=== PATIENT | female | born 1980 | race Two or more races ===

== ENCOUNTER 2017-01-03 16:44 | Emergency (ER) | payer OTHER ==
[~2017-01-03] VITALS: Ht 160 cm; Wt 90.7 kg
[~2017-01-03 16:44] MED LIST: ATOR10TA PO; BUPR1PAT TD; CETI10CA PO; EZET10TA3 PO; FENO145T PO; GABA-586 PO; HYDR-2762 PO; METF10002 PO; MILN50TA PO; PROAIR HFA8.5 GM IH; VARE1TAB5 PO
[2017-01-03 17:02] VITALS: BP 137/79
--- NOTE | 2017-01-03 17:28 | PHYS DOC ---
Past Medical History Past Medical History: Fibromyalgia, Hypertension, Unknown Additional Past Medical Histor: Herniated lumbar disks w/pinched nerves,High triglycerides,Polycystic ovary Past Surgical History: Other Additional Past Surgical Histo: L)ovarian cyst. Alcohol Use: None Drug Use: None Adult General Chief Complaint Chief Complaint: LOWER BACK PAIN OR INJURY HPI HPI Patient is a 36 year old female with history of hypertension and chronic back pain with sciatica who presents today with exacerbation of chronic back pain that began this morning. She rates the pain as moderate worse on movement. She states she has an appointment with the spine clinic next month. Patient states she has not had insurance for a while hence she has not been able to follow-up with anyone for her chronic pain. She states she just got insurance recently and is planning to follow-up with the spine center. Patient denies any injury. Denies any loss of bowel bladder function. Review of Systems Review of Systems Constitutional: Denies fever or chills [] Eyes: Denies change in visual acuity, redness, or eye pain [] Musculoskeletal: Chronic low back pain Integument: Denies rash or skin lesions [] Neurologic: Denies headache, focal weakness or sensory changes [] Endocrine: Denies polyuria or polydipsia [] Current Medications Current Medications Current Medications Medications (Trade) Dose Ordered Sig/Marine Start Time Stop Time Status Last Admin Dose Admin Acetaminophen/ Hydrocodone Bitart (Lortab 7.5/325) 2 tab 1X ONCE 01/03/17 17:30 3 17:31 UNV Diazepam (Valium) 5 mg 1X ONCE 01/03/17 17:30 3 17:31 UNV Prednisone (Prednisone) 60 mg 1X ONCE 01/03/17 17:30 01/03/17 17:31 UNV Allergies Allergies Allergies Coded Allergies Type Severity Reaction Last Updated Verified adhesive Allergy Intermediate 05/19/14 Yes pregabalin Allergy Intermediate MOUTH SORES 08/15/14 No Physical Exam Physical Exam Constitutional: Well developed, well nourished, no acute distress, non-toxic appearance. [] HENT: Normocephalic, atraumatic, bilateral external ears normal, oropharynx moist, no oral exudates, nose normal. [] Skin: Warm, dry, no erythema, no rash. [] Back: Diffuse tenderness paraspinal muscles of bilateral low lumbar region worse on the right SI joint, no midline tenderness, no CVA tenderness. Positive right leg straight raises. Extremities: No tenderness, no cyanosis, no clubbing, ROM intact, no edema. [] Neurologic: Alert and oriented X 3, normal motor function, normal sensory function, no focal deficits noted. [] Psychologic: Affect normal, judgement normal, mood normal. [] Current Patient Data Vital Signs Vital Signs Date Time Temp Pulse Resp B/P Pulse Ox O2 Delivery O2 Flow Rate FiO2 01/03/17 17:02 98.0 82 16 98 Room Air 98.0 EKG EKG [] Radiology/Procedures Radiology/Procedures [] Course & Med Decision Making Course & Med Decision Making Pertinent Labs and Imaging studies reviewed. (See chart for details) Patient is in the ED with exacerbation of chronic back pain. She has not had medical insurance for a while hence has not been following up with anyone. She is planning to follow-up with the spine center. She just got a new medical insurance through her new job at [employer]. She was given pain medicine and discharge. She was provided return precautions and discharged in stable condition. Dragon Disclaimer Dragon Disclaimer This electronic medical record was generated, in whole or in part, using a voice recognition dictation system. Departure Departure Impression: Primary Impression: Exacerbation of chronic back pain Additional Impression: Chronic sciatica of right side Disposition: 01 HOME, SELF-CARE Condition: STABLE Referrals: NO PCP (PCP) Follow-up with your doctor in 1-2 weeks Patient Instructions: Back Pain, Adult, [id number] Additional Instructions: You were seen for exacerbation of chronic back pain with sciatica. Follow-up with your doctor as soon as he can. Come back to the emergency room at any point symptoms worsen especially if you develop loss of bowel or bladder function. Scripts Naproxen 500 Mg Tablet.dr1 Tab PO BID #60 TAB Ref 2 Prov:RICHARD DELAROSA APRN 01/03/17 Cyclobenzaprine Hcl 10 Mg Tablet1 Tab PO TID #30 TAB Prov:RICHARD DELAROSA APRN 01/03/17 Hydrocodone/Apap 5-325 ([place] 5-325 Tablet)1 Each Tablet1-2 Tab PO Q4-6HRS #20 TAB Prov:RICHARD DELAROSA APRN 01/03/17 Problem Qualifiers RICHARD DELAROSA APRN Jan 03, 2017 17:28
[2017-01-03] MEDS ORDERED: DIAZEPAM 5 MG TABLET PO ONE (17:30)
[2017-01-03] MEDS ORDERED: PREDNISONE 20 MG TABLET PO ONE (17:30)
[2017-01-03] MEDS ORDERED: HYDROCODONE/APAP 7.5/325MG TABLET. PO ONE (17:30)
[2017-01-03] MEDS ORDERED: CYCL10TA2 PO (17:38)
[2017-01-03] MEDS ORDERED: HYDR-971 PO (17:38)
[2017-01-03] MEDS ORDERED: NAPR500T8 PO (17:38)
== END 2017-01-03 17:49 | disposition home or self-care (01) ==
LOC: ER 16:44
DX: G89.29 Other chronic pain (principal); M54.41 Lumbago with sciatica, right side; I10 Essential (primary) hypertension; M79.7 Fibromyalgia; E28.2 Polycystic ovarian syndrome; E78.1 Pure hyperglyceridemia; Z91.048 Other nonmedicinal substance allergy status; Z88.8 Allergy status to other drugs, medicaments and biological substances
CPT/HCPCS: 99284; J7512

== ENCOUNTER 2017-02-03 20:24 | Emergency (ER) | payer OTHER ==
[~2017-02-03] VITALS: Ht 160 cm; Wt 98.9 kg
[~2017-02-03 20:24] MED LIST changes: +CYCL10TA2 PO; +HYDR-971 PO; +NAPR500T8 PO
[2017-02-03 20:32] VITALS: BP 142/88
[2017-02-03] MEDS ORDERED: HYDR-971 PO (21:29)
[2017-02-03] MEDS ORDERED: NAPR500T3 PO (21:29)
--- NOTE | 2017-02-03 21:29 | PHYS DOC ---
Past Medical History Past Medical History: Fibromyalgia, Unknown Additional Past Medical Histor: Herniated lumbar disks w/pinched nerves,High triglycerides,Polycystic ovary Past Surgical History: Other Additional Past Surgical Histo: L)ovarian cyst. Alcohol Use: None Drug Use: None Adult General Chief Complaint Chief Complaint: BACK PAIN - NO INJURY [facility] HPI Patient is a 36 year old female presents emergency department stating that she has having right lower back pain with radiation down into her leg. Patient states she has chronic back issues in the past where she is on Robaxin as well as naproxen and has still continued to have pain and discomfort. Patient also states that she does take gabapentin for numbness and tingling into the right lower extremity. She states back in 2010 she did have epidural injections which seemed to have helped. She states at that time her insurance and ran out and she is unable to get the injections. She states that she does have an appointment on the of this month in which she is able to start getting injections again. Patient denies any trauma or injuries to the back causing her to come in today. Patient states she normally gets hydrocodone for the pain and discomfort as the other medications have not helped. She does state that she is currently out of the naproxen at this time. She denies any loss of bowel or bladder. Review of Systems Review of Systems Constitutional: Denies fever or chills [] Eyes: Denies change in visual acuity, redness, or eye pain [] HENT: Denies nasal congestion or sore throat [] Respiratory: Denies cough or shortness of breath [] Cardiovascular: No additional information not addressed in HPI [] GI: Denies abdominal pain, nausea, vomiting, bloody stools or diarrhea [] : Denies dysuria or hematuria [] Musculoskeletal: right lower back pain with radiation of pain into the right leg denies joint pain [] Integument: Denies rash or skin lesions [] Neurologic: Denies headache, focal weakness or sensory changes [] Allergies Allergies Allergies Coded Allergies Type Severity Reaction Last Updated Verified adhesive Allergy Intermediate 05/19/14 Yes pregabalin Allergy Intermediate MOUTH SORES 08/15/14 No Physical Exam Physical Exam Constitutional: Well developed, well nourished, no acute distress, non-toxic appearance. [] HENT: Normocephalic, atraumatic, bilateral external ears normal, oropharynx moist, no oral exudates, nose normal. [] Eyes: PERRLA, EOMI, conjunctiva normal, no discharge. [] Neck: Normal range of motion, no tenderness, supple, no stridor. [] Cardiovascular:Heart rate regular rhythm, no murmur [] Lungs & Thorax: Bilateral breath sounds clear to auscultation [] Abdomen: Bowel sounds normal, soft, no tenderness, no masses, no pulsatile masses. [] Skin: Warm, dry, no erythema, no rash. [] Back: No breast or lumbar spine tenderness, crepitus no deformities and no step- offs noted. No CVA tenderness. Patient with tenderness noted in the right lower back area. Extremities: No tenderness, no cyanosis, no clubbing, ROM intact, no edema. Peripheral pulses 2+ cap refill brisk less than 2 seconds. Good sensation noted to the lower extremity. Patient is ambulatory with a good steady gait. Neurologic: Alert and oriented X 3, normal motor function, normal sensory function, no focal deficits noted. [] Psychologic: Affect normal, judgement normal, mood normal. [] Current Patient Data Vital Signs Vital Signs Date Time Temp Pulse Resp B/P Pulse Ox O2 Delivery O2 Flow Rate FiO2 02/03/17 20:32 97.5 91 18 97 Room Air 97.5 EKG EKG [] Radiology/Procedures Radiology/Procedures [] Course & Med Decision Making Course & Med Decision Making Pertinent Labs and Imaging studies reviewed. (See chart for details) Spoke with patient in regards to the emergency department is not designed take care of chronic pain issues. Spoke with her in regards to hydrocodone causing drowsiness do not take any be alert and oriented. We'll provide patient with 6 hydrocodone's to help her with chronic pain at this time. Recommended continuing home medications patient be provided with naproxen as well. Patient will be discharged home in stable condition signs symptoms to return back to emergency department been provided. Also recommended ice packs on several times a day. [] Dragon Disclaimer Dragon Disclaimer This electronic medical record was generated, in whole or in part, using a voice recognition dictation system. Departure Departure Impression: Primary Impression: Chronic back pain Disposition: 01 HOME, SELF-CARE Condition: STABLE Referrals: LYLA LUCAS (PCP) Patient Instructions: Chronic Back Pain Additional Instructions: You've been evaluated for your chronic back pain. It is advisable that you follow-up with her primary care physician or pain management for further resources and management of your pain medication. Hydrocodone for severe pain and discomfort. This medication will cause drowsiness do not take any be alert and oriented. Ice packs on 20 minutes off 20 minutes several times a day. Continue your home medications. Follow-up with your primary care physician or your pain management physician in the next 3-5 days. Return back to emergency prior signs symptoms of become worse. Scripts Hydrocodone/Apap 5-325 ([place] 5-325 Tablet)1 Each Tablet1 Tab PO PRN Q6HRS PRN PAIN #10 TAB Prov:SHAUNNA CALI SUPERIOR COURT JUDGE 02/03/17 Naproxen 500 Mg Tablet1 Tab PO BID #60 TAB Prov:SHAUNNA CALI SUPERIOR COURT JUDGE 02/03/[address] JUDGE Feb 03, 2017 21:29
== END 2017-02-03 21:47 | disposition home or self-care (01) ==
LOC: ER 20:24
DX: G89.29 Other chronic pain (principal); M54.5 Low back pain; M79.7 Fibromyalgia; E28.2 Polycystic ovarian syndrome; Z88.8 Allergy status to other drugs, medicaments and biological substances; Z91.048 Other nonmedicinal substance allergy status
CPT/HCPCS: 99283

== ENCOUNTER 2017-05-22 20:05 | Emergency (ER) | payer OTHER ==
[~2017-05-22] VITALS: Ht 160 cm; Wt 99.8 kg
[~2017-05-22 20:05] MED LIST changes: -BUPR1PAT TD; +BUPR1PAT7 TD; +EZET10TA18 PO; -EZET10TA3 PO; +METF-620 PO; -METF10002 PO; +NAPR500T3 PO
[2017-05-22 21:02] LABS: BASO % 0 % (0-3); EOS % 3 % (0-3); HEMATOCRIT 39.4 % (36.0-47.0); HEMOGLOBIN 13.5 g/dL (12.0-15.5); LYMPH # 2.4 x10^3/uL (1.0-4.8); LYMPH % 28 % (24-48); MEAN CORPUSCULAR HEMOGLOBIN 31 pg (25-35); MEAN CORPUSCULAR HGB CONC 34 g/dL (31-37); MEAN CORPUSCULAR VOLUME 90 fL (79-100); MONO % 10 % (0-9); NEUT % 58 % (31-73); PLATELET COUNT 141 x10^3/uL (140-400); RED CELL DISTRIBUTION WIDTH 13.6 % (11.5-14.5); WHITE BLOOD COUNT 8.5 x10^3/uL (4.0-11.0)
[2017-05-22 21:19] LABS: CREATININE 0.7 mg/dL (0.6-1.0); GFR 95.8; POTASSIUM 3.3 mmol/L (3.5-5.1)
[2017-05-22 21:25] LABS: ALBUMIN 3.8 g/dL (3.4-5.0); ALBUMIN/GLOBULIN RATIO 0.9 (1.0-1.7); TOTAL BILIRUBIN 0.3 mg/dL (0.2-1.0); TOTAL PROTEIN 7.9 g/dL (6.4-8.2)
[2017-05-22 21:40] LABS: PLT ESTIMATE ADEQUATE (ADEQUATE)
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
[2017-05-22 22:30] VITALS: BP 131/81
--- NOTE | 2017-05-23 06:23 | EKG ---
[facility] [address] [place] [address] Test Date: 2017-05-22 Test Time: 20:32:41 Pat Name: RUSS WESTFALL Department: Room: Gender: F [employer] Tender: : 1980 Requested By: MINI DE SANTIAGO Order Number: [id number] Reading MD: Epifanio Heredia Measurements Intervals [place] Rate: 72 P: 31 SC: 142 QRS: 46 QRSD: 92 T: 22 QT: 392 QTc: 431 Interpretive Statements SINUS RHYTHM Electronically Signed On 05-25-2017 15:01:18 CDT by Epifanio Heredia
--- NOTE | 2017-05-23 07:21 | RAD ---
AP chest radiograph 05/22/2017 Indication: Chest pain Comparison: 11/09/2014 Findings: Cardiac and mediastinal silhouettes are within normal limits. No pleural effusion, pneumothorax or focal consolidation. Impression: No acute cardiopulmonary abnormality.
== END 2017-05-22 22:45 | disposition home or self-care (01) ==
LOC: ER 20:05
DX: R07.89 Other chest pain (principal); R06.00 Dyspnea, unspecified; R53.83 Other fatigue; J02.9 Acute pharyngitis, unspecified; E78.00 Pure hypercholesterolemia, unspecified; Z88.8 Allergy status to other drugs, medicaments and biological substances
CPT/HCPCS: 36415; 71010; 80053; 81025; 83690; 84484; 85007; 85027; 85379; 93005; 99285-25

== ENCOUNTER 2017-09-23 08:14 | Emergency (ER) | payer OTHER ==
[~2017-09-23] VITALS: Ht 160 cm; Wt 99.3 kg
[~2017-09-23 08:14] MED LIST changes: -NAPR500T3 PO; +NAPR500T4 PO
[2017-09-23] MEDS ORDERED: IV NORMAL SALINE 1000ML BAG 1,000 ML IV SCH (08:21)
[2017-09-23] MEDS ORDERED: ONDANSETRON PF 4 MG/2 ML VIAL. IV ONE (08:30)
[2017-09-23] MEDS ORDERED: 0.9 % SODIUM CHLORIDE 10 ML DISP.SYRIN. IV PRN (08:30)
[2017-09-23] MEDS ORDERED: PANTOPRAZOLE IV PUSH 40 MG VIAL. IVP ONE (08:30)
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
[2017-09-23] MEDS ORDERED: fentaNYL PF VIAL 100 MCG/2 ML VIAL IV ONE (08:45)
[2017-09-23 08:47] LABS: BASO % 0 % (0-3); EOS % 2 % (0-3); HEMATOCRIT 39.2 % (36.0-47.0); HEMOGLOBIN 12.8 g/dL (12.0-15.5); LYMPH # 1.5 x10^3/uL (1.0-4.8); LYMPH % 11 % (24-48); MEAN CORPUSCULAR HEMOGLOBIN 28 pg (25-35); MEAN CORPUSCULAR HGB CONC 33 g/dL (31-37); MEAN CORPUSCULAR VOLUME 87 fL (79-100); MONO % 9 % (0-9); NEUT % 78 % (31-73); PLATELET COUNT 152 x10^3/uL (140-400); RED BLOOD COUNT 4.51 x10^6/uL (3.50-5.40); WHITE BLOOD COUNT 13.9 x10^3/uL (4.0-11.0)
[2017-09-23 08:49] LABS: CALCIUM 9.4 mg/dL (8.5-10.1); CREATININE 0.7 mg/dL (0.6-1.0); GFR 95.2; POTASSIUM 3.4 mmol/L (3.5-5.1)
[2017-09-23 08:55] LABS: ALBUMIN 3.9 g/dL (3.4-5.0); ALBUMIN/GLOBULIN RATIO 1.1 (1.0-1.7); TOTAL BILIRUBIN 0.6 mg/dL (0.2-1.0); TOTAL PROTEIN 7.5 g/dL (6.4-8.2)
[2017-09-23 09:00] LABS: BILIRUBIN,URINE NEGATIVE (NEG); GLUCOSE,URINE NEGATIVE (NEG); NITRITE,URINE NEGATIVE (NEG); PH,URINE 6.5; PROTEIN,URINE NEGATIVE (NEG-TRACE)
[2017-09-23 09:11] LABS: BACTERIA,URINE FEW /HPF (0-FEW); RBC,URINE OCC /HPF (0-2); SQUAMOUS EPITHELIAL CELL,UR MANY /LPF
--- NOTE | 2017-09-23 09:44 | RAD ---
Right upper quadrant abdominal ultrasound, 09/23/2017: History: Right upper quadrant pain The gallbladder is within normal limits in size. There is no sonographic evidence of cholelithiasis. The gallbladder priest are not thickened. The common hepatic duct measures 6 mm which is at the upper limits of normal. No intrahepatic biliary ductal dilatation is seen. The hepatic echogenicity is generally increased. The liver measures 24 cm in craniocaudad extent at the level the right lobe. There is a 10.3 cm mass involving the posterior aspect of the right lobe of the liver adjacent to the upper pole of the right kidney. It appears to arise from the liver rather than the right kidney. This mass is more echogenic than the adjacent liver is a mildly heterogeneous pattern. It abuts the inferior vena cava. No other hepatic lesion is seen. The right kidney shows no intrinsic abnormality. The visualized portions of the pancreas are unremarkable. IMPRESSION: 1. No gallbladder abnormality is detected. 2. Hepatomegaly with probable hepatic steatosis. 3. 10 cm hyperechoic mass in the right lobe of the liver. Diagnostic considerations include a large hepatic hemangioma, focal nodular hyperplasia or hepatic adenoma. A primary or secondary hepatic malignancy is less likely. Hepatic protocol MR or multiphasic CT scanning is suggested for further evaluation.
[2017-09-23 10:12] LABS: PLT ESTIMATE ADEQUATE (ADEQUATE)
[2017-09-23 10:20] VITALS: BP 129/72
[2017-09-23] MEDS ORDERED: HYDR-971 PO (10:30)
[2017-09-23] MEDS ORDERED: METO10TA81 PO (10:30)
[2017-09-23] MEDS ORDERED: DICY10CA53 PO (10:30)
[2017-09-23] MEDS ORDERED: SULF1TAB24 PO (10:33)
== END 2017-09-23 11:32 | disposition home or self-care (01) ==
LOC: ER 08:14
DX: E86.0 Dehydration (principal); N30.90 Cystitis, unspecified without hematuria; E87.6 Hypokalemia; R16.0 Hepatomegaly, not elsewhere classified; M79.7 Fibromyalgia; E78.00 Pure hypercholesterolemia, unspecified; Z88.8 Allergy status to other drugs, medicaments and biological substances; Z91.048 Other nonmedicinal substance allergy status
CPT/HCPCS: 36415; 76705; 80053; 81001; 81025; 83690; 84702; 85025; 87086; 96361; 96374; 96375; 99285; C9113; J2405; J3010; J7030

== ENCOUNTER 2017-10-06 08:53 | Emergency (ER) | payer OTHER ==
[~2017-10-06] VITALS: Ht 160 cm; Wt 97.5 kg
[~2017-10-06 08:53] MED LIST changes: +DICY10CA53 PO; +METO10TA81 PO; +SULF1TAB24 PO
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
[2017-10-06] MEDS ORDERED: IV NORMAL SALINE 1000ML BAG 1,000 ML IV ONE (09:15)
[2017-10-06] MEDS ORDERED: ONDANSETRON PF 4 MG/2 ML VIAL. IV ONE (09:15)
[2017-10-06] MEDS ORDERED: fentaNYL PF VIAL 100 MCG/2 ML VIAL IV ONE (09:15)
[2017-10-06 09:39] LABS: BASO # 0.1 x10^3/uL (0.0-0.2); BASO % 1 % (0-3); EOS % 5 % (0-3); HEMATOCRIT 37.6 % (36.0-47.0); LYMPH # 2.7 x10^3/uL (1.0-4.8); LYMPH % 28 % (24-48); MEAN CORPUSCULAR HEMOGLOBIN 30 pg (25-35); MEAN CORPUSCULAR HGB CONC 35 g/dL (31-37); MEAN CORPUSCULAR VOLUME 86 fL (79-100); MONO % 6 % (0-9); NEUT % 61 % (31-73); PLATELET COUNT 151 x10^3/uL (140-400); RED CELL DISTRIBUTION WIDTH 14.4 % (11.5-14.5); WHITE BLOOD COUNT 9.6 x10^3/uL (4.0-11.0)
[2017-10-06 09:50] LABS: BILIRUBIN,URINE NEGATIVE (NEG); GLUCOSE,URINE NEGATIVE (NEG); NITRITE,URINE NEGATIVE (NEG); PH,URINE 6.5; PROTEIN,URINE NEGATIVE (NEG-TRACE); UROBILINOGEN,URINE 0.2 mg/dL (0.2 mg/dL)
[2017-10-06 10:00] LABS: CALCIUM 8.4 mg/dL (8.5-10.1); CREATININE 0.5 mg/dL (0.6-1.0); GFR 140.4; POTASSIUM 3.9 mmol/L (3.5-5.1)
[2017-10-06 10:06] LABS: ALBUMIN 3.5 g/dL (3.4-5.0); TOTAL BILIRUBIN 0.2 mg/dL (0.2-1.0)
[2017-10-06 10:09] LABS: BACTERIA,URINE FEW /HPF (0-FEW); RBC,URINE RARE /HPF (0-2); SQUAMOUS EPITHELIAL CELL,UR FEW /LPF; WBC,URINE OCC /HPF (0-4)
[2017-10-06] MEDS ORDERED: IOHEXOL 300 MG/ML 100ML VIAL. IV ONE (10:15)
[2017-10-06] MEDS ORDERED: CONTRAST GIVEN MC PRN (10:15)
--- NOTE | 2017-10-06 11:19 | RAD ---
Indication: Abnormal ultrasound with liver mass. Further evaluation. Technique: Precontrast, arterial, and delayed imaging was performed. Coronal and sagittal reformats are provided. 75 mL of intravenous Omnipaque 300 was administered without complication. Comparison is an ultrasound from September 23, 2017. One or more of the following individualized dose reduction techniques were utilized for this examination: 1. Automated exposure control 2. Adjustment of the mA and/or kV according to patient size 3. Use of iterative reconstruction technique Findings: There is atelectasis in the lung bases. There is no pleural effusion. The heart is not enlarged. There is fatty infiltration of the liver without discrete mass. Gallbladder is unremarkable. Spleen is not enlarged. The pancreas and the left adrenal are unremarkable. There is a 7 x 6 x 7 cm predominately fatty mass in the expected location of the right adrenal. There is some associated soft tissue within this lesion. This indents on the contour of the liver and corresponds to the lesion on ultrasound. It is favored to arise from the adrenal rather than from the liver or the adjacent kidney. There is no claw sign to suggest this arises from the kidney. Imaging characteristics are compatible with myelolipoma. There is of increased density within the lesion could represent normal soft tissue components within a myelolipoma, could also represent areas of hemorrhage. Given large size, surgical consult can be considered. Myelolipomas do not have malignant potential although larger lesions have an associated risk of hemorrhage including retroperitoneal hemorrhage. Aorta is normal caliber with minimal atheromatous disease. Precontrast imaging demonstrates no urolithiasis. Kidneys are symmetrically perfused. Right renal cyst measures 15 mm. Small bowel and colon are grossly unremarkable on this exam without oral contrast. Cystic lesion in the right adnexa is presumably ovarian in origin, 7 x 6 cm. There is no free pelvic fluid. There is no pelvic adenopathy. Bony structures are intact. Impression: 1. Area of concern on ultrasound appears to arise from the right adrenal gland rather than from the liver. It is a fat containing lesion with areas of increased density within. Imaging characteristics are compatible with myelolipoma. The areas of increased density could represent soft tissue components of a myelolipoma, could also represent areas of hemorrhage. Surgical consult can be considered. At the minimum, surveillance imaging is required. 2. Mild fatty infiltration of the liver. 3. Right renal cyst. 4. Minimal atheromatous disease in the thoracic aorta. 5. Cystic lesion in the right adnexa. Short-term follow-up nonemergent pelvic ultrasound should be considered. Lesion is new from pelvic ultrasounds from 2015.
[2017-10-06 12:30] VITALS: BP 124/75
[2017-10-06] MEDS ORDERED: OXYC-327 PO (12:51)
== END 2017-10-06 13:05 | disposition home or self-care (01) ==
LOC: ER 08:53
DX: R10.11 Right upper quadrant pain (principal); D17.79 Benign lipomatous neoplasm of other sites; E78.00 Pure hypercholesterolemia, unspecified; M79.7 Fibromyalgia; Z88.8 Allergy status to other drugs, medicaments and biological substances
CPT/HCPCS: 36415; 74178; 80053; 81001; 81025; 83690; 85025; 96361; 96374; 96375; 99285; J2405; J3010; J7030; Q9967

== ENCOUNTER → 2017-10-16 | Outpatient (CLI) | payer OTHER ==
[2017-10-06 12:30] VITALS: BP 124/75
[~2017-10-16] MED LIST changes: +OXYC-327 PO
[2017-10-17 18:15] LABS: HEP A IGM ABDY Negative (Negative)
== END | disposition home or self-care (01) ==
LOC: LAB 15:37
PROVIDERS: ATTEND Pediatrics
DX: E27.9 Disorder of adrenal gland, unspecified (principal)
CPT/HCPCS: 36415; 80074

== ENCOUNTER 2018-08-15 15:25 | Emergency (ER) | payer OTHER ==
[2017-10-26 23:18] VITALS: BP 130/78
[~2018-08-15] VITALS: Ht 160 cm; Wt 99.8 kg
[~2018-08-15 15:25] MED LIST changes: +DOCU100C28 PO; -METF-620 PO; +METF10007 PO; +NAPR-514 PO; -NAPR500T4 PO; +NICO1PAT25 TP; +OXYC-323 PO; +ZOLP5TAB PO
[2018-08-15] MEDS ORDERED: MORPHINE SULFATE 10 MG/ML VIAL. IV ONE (15:45)
[2018-08-15] MEDS ORDERED: ONDANSETRON PF 4 MG/2 ML VIAL. IV ONE (15:45)
[2018-08-15] MEDS ORDERED: IV NORMAL SALINE 1000ML BAG 1,000 ML IV ONE (15:45)
[2018-08-15] MEDS ORDERED: IPRATRPIUM/ALBUTEROL 0.5/2.5MG 3 ML NEBU. NEB ONE (15:45)
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
[2018-08-15 15:52] LABS: BILIRUBIN,URINE NEGATIVE (NEG); CLARITY,URINE CLEAR; COLOR,URINE YELLOW; NITRITE,URINE NEGATIVE (NEG); PROTEIN,URINE NEGATIVE (NEG-TRACE); UROBILINOGEN,URINE 0.2 mg/dL (0.2 mg/dL)
[2018-08-15 15:58] LABS: CALCIUM 9.6 mg/dL (8.5-10.1); CREATININE 0.6 mg/dL (0.6-1.0); GFR 113.8; POTASSIUM 3.6 mmol/L (3.5-5.1)
[2018-08-15 15:59] LABS: AMPHETAMINE/METHAMPHETAMINE NEG (NEG); BARBITURATES NEG (NEG); BENZODIAZEPINES NEG (NEG); CANNABINOIDS NEG (NEG); COCAINE NEG (NEG); METHADONE NEG (NEG); OPIATES NEG (NEG); PHENCYCLIDINE POS (NEG)
[2018-08-15 16:02] LABS: BASO # 0.1 x10^3/uL (0.0-0.2); BASO % 1 % (0-3); EOS # 0.2 x10^3/uL (0.0-0.7); EOS % 3 % (0-3); HEMATOCRIT 38.3 % (36.0-47.0); HEMOGLOBIN 13.1 g/dL (12.0-15.5); LYMPH # 2.3 x10^3/uL (1.0-4.8); LYMPH % 32 % (24-48); MEAN CORPUSCULAR HEMOGLOBIN 31 pg (25-35); MEAN CORPUSCULAR HGB CONC 34 g/dL (31-37); MEAN CORPUSCULAR VOLUME 90 fL (79-100); MONO # 0.7 x10^3/uL (0.0-1.1); MONO % 9 % (0-9); NEUT # 3.8 x10^3uL (1.8-7.7); NEUT % 54 % (31-73); PLATELET COUNT 148 x10^3/uL (140-400); RED BLOOD COUNT 4.28 x10^6/uL (3.50-5.40); RED CELL DISTRIBUTION WIDTH 13.6 % (11.5-14.5)
[2018-08-15 16:04] LABS: ALBUMIN 3.5 g/dL (3.4-5.0); ALBUMIN/GLOBULIN RATIO 0.8 (1.0-1.7); TOTAL BILIRUBIN 0.3 mg/dL (0.2-1.0)
[2018-08-15 16:09] LABS: RBC,URINE 0 /HPF (0-2); WBC,URINE OCC /HPF (0-4)
[2018-08-15 16:10] LABS: BACTERIA,URINE FEW /HPF (0-FEW); SQUAMOUS EPITHELIAL CELL,UR MOD /LPF
[2018-08-15] MEDS ORDERED: CONTRAST GIVEN. MC PRN (16:15)
[2018-08-15] MEDS ORDERED: IOHEXOL 300 MG/ML 100ML VIAL. IV ONE (16:15)
--- NOTE | 2018-08-15 16:17 | RAD ---
AP chest comparison: Chest x-ray May 22, 2017. HISTORY: Cough and shortness of breath. Bronchitis. FINDINGS: Heart size normal. Mediastinal silhouette is normal. No pneumothorax, pulmonary opacities or pleural effusions. The bones are unremarkable. IMPRESSION: No acute process. Electronically signed by: Moi Deleon MD (08/15/2018 4:14 PM) [facility]
--- NOTE | 2018-08-15 16:40 | RAD ---
CT ABD PELV W/ IV CONTRST ONLY dated 08/15/2018 4:10 PM Indication:lower abd pain with nausea and vomiting
Omni 300 75ml, prior sent. hx of renal and ovarian mass removed in November of 2017 Comparison: 10/26/2017. Technique: CT images were performed using IV contrast. One or more of the following individualized dose reduction techniques were utilized for this examination: 1. Automated exposure control 2. Adjustment of the mA and/or kV according to patient size 3. Use of iterative reconstruction technique Findings: The lung bases are clear. There is probably mild fatty infiltration of the liver. No focal liver lesion is seen. The spleen appears normal. Both kidneys enhance with contrast. No mass or obstruction is seen. A small cyst is again shown on the right kidney. The right adrenal mass has been removed. The left adrenal gland appears normal. No pancreatic abnormality is seen. There is no apparent retroperitoneal or mesenteric adenopathy. No abdominal soft tissue mass or inflammatory process is seen. A normal appendix is shown inferior to the cecum. There is no evidence of bowel obstruction. Images through the pelvis show no abnormality of the distal ureters or bladder. The uterus and adnexal areas appear normal for age. A cystic right adnexal mass apparently was removed. An oval low density structure in the right adnexa is consistent with remaining ovarian tissue. Correlation with surgical reports would be useful. No separate pelvic mass or inflammatory process is seen. IMPRESSION: No evidence of appendicitis or other acute abnormality. Electronically signed by: Alen Trejo Jr., MD (08/15/2018 4:37 PM) [facility]
[2018-08-15] MEDS ORDERED: ONDA4TAB10 SL (17:12)
[2018-08-15] MEDS ORDERED: DICY20TA3 PO (17:12)
[2018-08-15] MEDS ORDERED: VENTOLIN HFA18 GM INH (17:12)
[2018-08-15] MEDS ORDERED: PRED50TA PO (17:12)
[2018-08-15] MEDS ORDERED: BENZ100C PO (17:12)
== END 2018-08-15 17:27 | disposition home or self-care (01) ==
LOC: ER 15:25
DX: R10.84 Generalized abdominal pain (principal); J20.9 Acute bronchitis, unspecified; R10.12 Left upper quadrant pain; E78.00 Pure hypercholesterolemia, unspecified; F17.200 Nicotine dependence, unspecified, uncomplicated; Z88.8 Allergy status to other drugs, medicaments and biological substances
CPT/HCPCS: 36415; 71045; 74177; 80053; 80307; 81001; 81025; 83690; 85025; 94640; 96361; 96374; 96375; 99285; G0480; J2270; J2405; J7030; J7620; Q9967; G0479

== ENCOUNTER → 2018-11-26 | Outpatient (CLI) | payer OTHER ==
[2018-08-15 15:52] VITALS: BP 134/85
[~2018-11-26] MED LIST changes: +ALBU2.5V8 IH; +BENZ100C PO; +DICY20TA3 PO; -GABA-586 PO; +GABA300C18 PO; -HYDR-2762 PO; +HYDR-2765 PO; +HYDR-3164 PO; -HYDR-971 PO; +ONDA4TAB10 SL; -OXYC-323 PO; -OXYC-327 PO; +OXYC1TAB15 PO; +OXYC1TAB19 PO; +PRED50TA PO; -PROAIR HFA8.5 GM IH; +VENTOLIN HFA18 GM INH
[2018-11-26] MEDS: GADOBUTROL 10 MMOL/10 ML VIAL IV ONE (15:56)
--- NOTE | 2018-11-26 16:24 | RAD ---
EXAMINATION: Magnetic resonance imaging (MRI) of the lumbar spine with and without contrast 11/26/2018 3:30 PM HISTORY: Chronic worsening low back and bilateral leg radiculopathy, left worse than right. TECHNIQUE: Multiplanar multi-weighted MRI of the lumbar spine was performed with and without intravenous contrast using the standard lumbar spine protocol. Contrast information: 9 mL gadolinium this was administered intravenously. COMPARISON: Report is provided from 04/30/2016 without images. FINDINGS: There is minimal retrolisthesis of L4 on L5. There is mild disc height loss at L4-L5 and L5-S1 with associated disc desiccation and annular fissures. Conus medullaris terminates at L1. Distal spinal cord signal intensity is normal in all sequences. Vertebral body heights are maintained. Marrow signal intensity is normal in all sequences with exception of Modic type II endplate degenerative changes at L5-S1. Abdominal aorta is normal in course and caliber. There are no suspicious retroperitoneal findings. Visualized portions of the left kidney appear intact. Sacrum is intact. No suspicious enhancement is identified. Modic type II endplate degenerative changes are identified at T11-T12. L2-L3: Disc is normal in configuration. No significant facet arthropathy. No neuroforaminal or spinal canal stenosis. L3-L4: Disc is normal in configuration. There is mild facet arthropathy. No neuroforaminal or spinal canal stenosis. L4-L5: There is mild disc bulge. There is central disc protrusion. Is mild facet arthropathy. There is mild left neuroforaminal stenosis. Mild spinal canal stenosis. L5-S1: There is a disc bulge with right central disc protrusion. Mild narrowing of the right lateral recess. There is mild to moderate facet arthropathy. There is mild bilateral neuroforaminal stenosis. No spinal canal stenosis. IMPRESSION: Mild degenerative changes of the lumbar spine, most prominent at L4-L5 and L5-S1. Electronically signed by: Neli Henderson MD (11/26/2018 4:19 PM) [facility]
== END | disposition home or self-care (01) ==
LOC: MRI 15:13
PROVIDERS: ATTEND Pediatrics
DX: M51.17 Intervertebral disc disorders with radiculopathy, lumbosacral region (principal); M47.27 Other spondylosis with radiculopathy, lumbosacral region; M48.07 Spinal stenosis, lumbosacral region
CPT/HCPCS: 72158; A9585

== ENCOUNTER 2018-12-13 12:35 | Emergency (ER) | payer OTHER ==
[~2018-12-13] VITALS: Ht 160 cm; Wt 90.7 kg
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
[2018-12-13] MEDS ORDERED: DEXAMETHASONE SOD PHOS 20 MG/5 ML VIAL. IV ONE (13:15)
[2018-12-13] MEDS ORDERED: IV NORMAL SALINE 1000ML BAG 1,000 ML IV ONE (13:15)
[2018-12-13 13:32] LABS: BASO % 1 % (0-3); EOS # 0.1 x10^3/uL (0.0-0.7); EOS % 1 % (0-3); HEMATOCRIT 41.9 % (36.0-47.0); HEMOGLOBIN 14.1 g/dL (12.0-15.5); LYMPH # 1.7 x10^3/uL (1.0-4.8); LYMPH % 23 % (24-48); MEAN CORPUSCULAR HEMOGLOBIN 30 pg (25-35); MEAN CORPUSCULAR HGB CONC 34 g/dL (31-37); MEAN CORPUSCULAR VOLUME 88 fL (79-100); MONO # 0.4 x10^3/uL (0.0-1.1); MONO % 6 % (0-9); NEUT # 4.9 x10^3uL (1.8-7.7); NEUT % 69 % (31-73); PLATELET COUNT 161 x10^3/uL (140-400); RED BLOOD COUNT 4.76 x10^6/uL (3.50-5.40); RED CELL DISTRIBUTION WIDTH 13.9 % (11.5-14.5); WHITE BLOOD COUNT 7.1 x10^3/uL (4.0-11.0)
[2018-12-13 13:40] LABS: CREATININE 0.6 mg/dL (0.6-1.0); GFR 113.1; POTASSIUM 4.4 mmol/L (3.5-5.1)
[2018-12-13 13:45] LABS: ALBUMIN 3.7 g/dL (3.4-5.0); ALBUMIN/GLOBULIN RATIO 0.8 (1.0-1.7); MAGNESIUM 2.1 mg/dL (1.8-2.4); TOTAL BILIRUBIN 0.5 mg/dL (0.2-1.0); TOTAL PROTEIN 8.4 g/dL (6.4-8.2)
[2018-12-13 13:48] LABS: BILIRUBIN,URINE NEGATIVE (NEG); CLARITY,URINE CLEAR; COLOR,URINE YELLOW; NITRITE,URINE NEGATIVE (NEG); PROTEIN,URINE NEGATIVE (NEG-TRACE)
[2018-12-13 13:53] LABS: BACTERIA,URINE FEW /HPF (0-FEW); RBC,URINE 0 /HPF (0-2); SQUAMOUS EPITHELIAL CELL,UR MOD /LPF
[2018-12-13 13:56] LABS: U PREG PATIENT NEGATIVE (NEG)
[2018-12-13] MEDS ORDERED: diazePAM 2 MG TABLET PO ONE (14:30)
[2018-12-13] MEDS ORDERED: HYDROcodone/APAP 5/325MG 1 TAB TABLET PO ONE (14:30)
[2018-12-13 14:40] VITALS: BP 136/87
== END 2018-12-13 14:44 | disposition home or self-care (01) ==
LOC: ER 12:35
DX: J06.9 Acute upper respiratory infection, unspecified (principal); R11.2 Nausea with vomiting, unspecified; M54.41 Lumbago with sciatica, right side; G89.29 Other chronic pain; M79.7 Fibromyalgia; E78.00 Pure hypercholesterolemia, unspecified; Z88.8 Allergy status to other drugs, medicaments and biological substances
CPT/HCPCS: 36415; 80053; 81001; 81025; 83690; 83735; 85025; 87086; 96361; 96374; 99283; J1100; J7030

== ENCOUNTER 2019-02-11 11:05 | Emergency (ER) | payer SELFPAY ==
[~2019-02-11] VITALS: Ht 160 cm; Wt 84.4 kg
[2019-02-11 11:17] VITALS: BP 138/86
[2019-02-11] MEDS ORDERED: diazePAM 5 MG TABLET PO ONE (12:00)
[2019-02-11] MEDS ORDERED: MORPHINE SULFATE 10 MG/ML VIAL. IM ONE (12:00)
[2019-02-11] MEDS ORDERED: DEXAMETHASONE SOD PHOS 20 MG/5 ML VIAL. IM ONE (12:00)
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
== END 2019-02-11 12:43 | disposition home or self-care (01) ==
LOC: ER 11:05
DX: G89.29 Other chronic pain (principal); M54.5 Low back pain; E78.00 Pure hypercholesterolemia, unspecified; Z88.8 Allergy status to other drugs, medicaments and biological substances
CPT/HCPCS: 96372; 99284; J1100; J2270

== ENCOUNTER 2019-04-17 00:26 | Emergency (ER) | payer MEDICAID ==
[~2019-04-17] VITALS: Ht 160 cm; Wt 97.5 kg
[2019-04-17] MEDS ORDERED: IPRATRPIUM/ALBUTEROL 0.5/2.5MG 3 ML NEBU. NEB ONE (01:30)
[2019-04-17 01:37] LABS: BASO % 1 % (0-3); EOS # 0.2 x10^3/uL (0.0-0.7); EOS % 3 % (0-3); HEMATOCRIT 34.1 % (36.0-47.0); HEMOGLOBIN 11.6 g/dL (12.0-15.5); LYMPH # 2.5 x10^3/uL (1.0-4.8); LYMPH % 35 % (24-48); MEAN CORPUSCULAR HEMOGLOBIN 31 pg (25-35); MEAN CORPUSCULAR HGB CONC 34 g/dL (31-37); MEAN CORPUSCULAR VOLUME 91 fL (79-100); MONO # 0.7 x10^3/uL (0.0-1.1); MONO % 10 % (0-9); NEUT # 3.7 x10^3uL (1.8-7.7); NEUT % 52 % (31-73); PLATELET COUNT 153 x10^3/uL (140-400); RED BLOOD COUNT 3.77 x10^6/uL (3.50-5.40); RED CELL DISTRIBUTION WIDTH 14.3 % (11.5-14.5); WHITE BLOOD COUNT 7.1 x10^3/uL (4.0-11.0)
[2019-04-17 01:48] LABS: PROTHROMBIN TIME PATIENT 12.4 SEC (11.7-14.0)
[2019-04-17 01:51] LABS: D-DIMER < 0.27 ug/mlFEU (0.00-0.50)
[2019-04-17 01:54] LABS: CALCIUM 8.8 mg/dL (8.5-10.1); CREATININE 0.7 mg/dL (0.6-1.0); GFR 94.7; POTASSIUM 3.4 mmol/L (3.5-5.1)
[2019-04-17 02:00] LABS: ALBUMIN 3.5 g/dL (3.4-5.0); ALBUMIN/GLOBULIN RATIO 0.9 (1.0-1.7); TOTAL BILIRUBIN 0.1 mg/dL (0.2-1.0); TOTAL PROTEIN 7.3 g/dL (6.4-8.2)
[2019-04-17 02:15] VITALS: BP 123/87
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
--- NOTE | 2019-04-17 07:36 | RAD ---
Indication:Chest pain, shortness of breath TECHNIQUE:Portable AP chest X-ray COMPARISON: 08/15/2018 FINDINGS: Heart is normal in size. Lungs are clear. No pneumothorax or pleural effusion. Visualized bony thorax within normal limits. IMPRESSION: No acute pulmonary process. Electronically signed by: Juan M Narayan DO (04/17/2019 7:33 AM) [facility]
--- NOTE | 2019-04-17 11:51 | EKG ---
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
== END 2019-04-17 02:37 | disposition home or self-care (01) ==
LOC: ER 00:26
DX: R05 Cough (principal); J02.9 Acute pharyngitis, unspecified; R07.89 Other chest pain; R06.02 Shortness of breath; E78.00 Pure hypercholesterolemia, unspecified; G89.29 Other chronic pain; Z88.8 Allergy status to other drugs, medicaments and biological substances
CPT/HCPCS: 36415; 71045; 80053; 83880; 84484; 84702; 85025; 85379; 85610; 93005; 94640; 99285; J7620

== ENCOUNTER 2019-06-16 21:13 | Emergency (ER) | payer MEDICAID ==
[~2019-06-16] VITALS: Ht 160 cm; Wt 97.5 kg
[2019-06-16 21:20] VITALS: BP 155/95
[2019-06-16] MEDS ORDERED: ALBU2.5V8 IH (21:38)
[2019-06-16] MEDS ORDERED: PRED50TA PO (21:38)
[2019-06-16] MEDS ORDERED: BENZ100C PO (21:38)
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
[2019-06-16] MEDS ORDERED: predniSONE 20 MG TABLET PO ONE (21:45)
[2019-06-16] MEDS ORDERED: IPRATRPIUM/ALBUTEROL 0.5/2.5MG 3 ML NEBU. NEB ONE (21:45)
[2019-06-16] MEDS ORDERED: BENZONATATE 100 MG CAPSULE. PO ONE (21:45)
== END 2019-06-16 22:10 | disposition home or self-care (01) ==
LOC: ER 21:13
DX: J20.9 Acute bronchitis, unspecified (principal); F17.200 Nicotine dependence, unspecified, uncomplicated; E78.00 Pure hypercholesterolemia, unspecified; G89.29 Other chronic pain; Z88.8 Allergy status to other drugs, medicaments and biological substances
CPT/HCPCS: 94640; 99283; J7512; J7620

== ENCOUNTER 2019-09-11 07:32 | Emergency (ER) | payer MEDICAID, OTHER ==
[~2019-09-11] VITALS: Ht 160 cm; Wt 101.2 kg
[~2019-09-11 07:32] MED LIST changes: -EZET10TA18 PO; +EZET10TA20 PO; +PROVENTIL HFA6.7 GM IH
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
[2019-09-11 08:15] VITALS: BP 130/86
[2019-09-11] MEDS ORDERED: IPRATRPIUM/ALBUTEROL 0.5/2.5MG 3 ML NEBU. NEB ONE (08:30)
[2019-09-11] MEDS ORDERED: methylPREDNISolone SOD SUCC PF 125 MG/2 ML VIAL. IV ONE (08:30)
[2019-09-11 08:37] LABS: BASO # 0.1 x10^3/uL (0.0-0.2); BASO % 1 % (0-3); EOS # 0.3 x10^3/uL (0.0-0.7); EOS % 4 % (0-3); HEMOGLOBIN 13.6 g/dL (12.0-15.5); LYMPH % 23 % (24-48); MEAN CORPUSCULAR HEMOGLOBIN 31 pg (25-35); MEAN CORPUSCULAR HGB CONC 35 g/dL (31-37); MEAN CORPUSCULAR VOLUME 88 fL (79-100); MONO # 0.7 x10^3/uL (0.0-1.1); MONO % 8 % (0-9); NEUT # 5.6 x10^3/uL (1.8-7.7); NEUT % 64 % (31-73); PLATELET COUNT 136 x10^3/uL (140-400); RED BLOOD COUNT 4.43 x10^6/uL (3.50-5.40); RED CELL DISTRIBUTION WIDTH 14.5 % (11.5-14.5); WHITE BLOOD COUNT 8.7 x10^3/uL (4.0-11.0)
--- NOTE | 2019-09-11 09:01 | RAD ---
Exam performed: 2 views of the chest. Indication: Shortness of breath for 2 months Date of Service: 09/11/2019 8:29 AM . Comparison : One view chest from 04/17/2019 Findings: PA and lateral radiographs of the chest reveal a normal cardiomediastinal contour. The lungs are clear. No pleural fluid is seen. The visualized osseous structures are unremarkable. Impression: No acute cardiopulmonary process seen. Electronically signed by: Mimi Caro MD (09/11/2019 8:58 AM) [facility]
[2019-09-11 09:31] LABS: ALBUMIN 3.3 g/dL (3.4-5.0); ALBUMIN/GLOBULIN RATIO 0.8 (1.0-1.7); CALCIUM 8.2 mg/dL (8.5-10.1); CREATININE 0.6 mg/dL (0.6-1.0); GFR 113.1; POTASSIUM 3.7 mmol/L (3.5-5.1); TOTAL BILIRUBIN 0.4 mg/dL (0.2-1.0); TOTAL PROTEIN 7.6 g/dL (6.4-8.2)
[2019-09-11 09:44] LABS: PLT ESTIMATE ADEQUATE (ADEQUATE)
[2019-09-11 10:06] LABS: BASE EXCESS ABG 0 mmol/L (-3-3); HCO3 ABG 25 mmol/L (21-28); PCO2 ABG 40 mmHg (35-46); PO2 ABG 75 mmHg (85-108); SAT O2 ABG 95 % (92-99)
[2019-09-11 10:07] LABS: FIO2 ABG 21
--- NOTE | 2019-09-11 10:11 | EKG ---
[facility] [address] [place] [address] Test Date: 2019-09-11 Test Time: 08:42:32 Pat Name: RUSS WESTFALL Department: Room: Gender: F Fisher Trammel Net: : 1980 Requested By: KELSEY GOFF Order Number: [id number] Reading MD: Measurements Intervals [place] Rate: 83 P: 32 MD: 136 QRS: 52 QRSD: 88 T: 31 QT: 374 QTc: 445 Interpretive Statements SINUS RHYTHM QRS(T) CONTOUR ABNORMALITY CONSIDER ANTEROLATERAL MYOCARDIAL DAMAGE POSSIBLY ABNORMAL ECG RI6.01 No previous ECG available for comparison
[2019-09-11] MEDS ORDERED: BENZ100C PO (11:13)
[2019-09-11] MEDS ORDERED: METH4TAB2 PO (11:13)
== END 2019-09-11 11:43 | disposition home or self-care (01) ==
LOC: ER 07:32
DX: J45.21 Mild intermittent asthma with (acute) exacerbation (principal); R06.4 Hyperventilation; F17.200 Nicotine dependence, unspecified, uncomplicated; E78.00 Pure hypercholesterolemia, unspecified; G89.29 Other chronic pain; Z91.040 Latex allergy status; Z88.8 Allergy status to other drugs, medicaments and biological substances
CPT/HCPCS: 36415; 36600; 71046; 80053; 82550; 82805; 83880; 84484; 85025; 93005; 94640; 96374; 99285; J2930; J7620

== ENCOUNTER 2019-09-15 20:03 | Emergency (ER) | payer OTHER, MEDICAID ==
[~2019-09-15] VITALS: Ht 160 cm; Wt 100.7 kg
[~2019-09-15 20:03] MED LIST changes: +METH4TAB2 PO
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
[2019-09-15 22:16] LABS: BILIRUBIN,URINE NEGATIVE (NEG); CLARITY,URINE CLOUDY; COLOR,URINE YELLOW; NITRITE,URINE NEGATIVE (NEG); PH,URINE 6.5; PROTEIN,URINE NEGATIVE (NEG-TRACE); UROBILINOGEN,URINE 0.2 mg/dL (0.2 mg/dL)
[2019-09-15 22:16] LABS: BASO # 0.1 x10^3/uL (0.0-0.2); BASO % 1 % (0-3); EOS # 0.3 x10^3/uL (0.0-0.7); EOS % 3 % (0-3); HEMATOCRIT 38.9 % (36.0-47.0); LYMPH # 3.8 x10^3/uL (1.0-4.8); LYMPH % 36 % (24-48); MEAN CORPUSCULAR VOLUME 87 fL (79-100); MONO # 0.7 x10^3/uL (0.0-1.1); MONO % 7 % (0-9); NEUT # 5.6 x10^3/uL (1.8-7.7); NEUT % 53 % (31-73); PLATELET COUNT 160 x10^3/uL (140-400); RED BLOOD COUNT 4.45 x10^6/uL (3.50-5.40); RED CELL DISTRIBUTION WIDTH 14.2 % (11.5-14.5); WHITE BLOOD COUNT 10.5 x10^3/uL (4.0-11.0)
[2019-09-15 22:24] LABS: SQUAMOUS EPITHELIAL CELL,UR MANY /LPF
[2019-09-15 22:25] LABS: BACTERIA,URINE MANY /HPF (0-FEW)
[2019-09-15 23:02] LABS: HEMOGLOBIN 13.8 g/dL (12.0-15.5); MEAN CORPUSCULAR HEMOGLOBIN 31 pg (25-35); MEAN CORPUSCULAR HGB CONC 35 g/dL (31-37)
[2019-09-15] MEDS ORDERED: ACETAMINOPHEN 500 MG TABLET PO ONE (23:15)
--- NOTE | 2019-09-15 23:29 | RAD ---
CT HEAD AND CERVICAL SPINE WO Date: 09/15/2019 9:43 PM Clinical Indication: Pain, radiculopathy Comparison: None. Technique: 5 mm axial tomographic images were obtained of the head without contrast. These were viewed on brain and bone windows. CT imaging of the cervical spine was performed without contrast. Coronal and sagittal reformatted images were performed. One or more of the following dose reduction techniques were utilized: Automated exposure control (AEC), Adjustment of mA and/or kV according to patient size, Use of iterative reconstruction technique such as ASiR, CT scan done according to ALARA and image gently/image wisely HEAD FINDINGS: The brain parenchyma is normal in attenuation. No intra- or extra-axial mass or fluid collection. No acute hemorrhage. The ventricles are normal in size, shape, and morphology. The morales-white matter junction is normal. The basilar cisterns are patent. The visualized paranasal sinuses are normal. The visualized portions of the orbits and globes are normal. The mastoid air cells are clear. No aggressive osseous lesion or fracture. CERVICAL SPINE FINDINGS: The cervical spine is normally aligned. No acute fracture. No aggressive lytic or blastic osseous lesion. The intervertebral disc heights are maintained. No high-grade spinal canal stenosis or neural foraminal narrowing. The thyroid gland is normal. No cervical lymphadenopathy. The visualized aerodigestive tract is unremarkable. The visualized lung apices are clear. IMPRESSION: 1. No acute intracranial process. 2. No acute osseous abnormality of the cervical spine. Electronically signed by: Gavin Chavez MD (09/15/2019 11:26 PM) [facility]
[2019-09-15] MEDS ORDERED: METF500T16 PO (23:47)
[2019-09-15 23:49] LABS: TOTAL PROTEIN 7.3 g/dL (6.4-8.2)
[2019-09-15 23:50] LABS: CREATININE 0.5 mg/dL (0.6-1.0); GFR 138.8
[2019-09-15 23:57] LABS: ALBUMIN 3.6 g/dL (3.4-5.0)
[2019-09-15 23:58] LABS: TOTAL BILIRUBIN 0.3 mg/dL (0.2-1.0)
[2019-09-15 23:59] LABS: POTASSIUM 4.5 mmol/L (3.5-5.1)
[2019-09-16] VITALS: BP 99/57
[2019-09-16 23:07] LABS: HEMOGLOBIN A1C 5.8 % (4.8-5.6)
== END 2019-09-15 23:59 | disposition home or self-care (01) ==
LOC: ER 20:03
DX: E11.9 Type 2 diabetes mellitus without complications (principal); R42 Dizziness and giddiness; E78.00 Pure hypercholesterolemia, unspecified; J45.909 Unspecified asthma, uncomplicated; G89.29 Other chronic pain; Z91.040 Latex allergy status; Z88.8 Allergy status to other drugs, medicaments and biological substances
CPT/HCPCS: 36415; 70450; 72125; 80053; 81001; 81025; 83036; 85025; 87086; 99285-25

== ENCOUNTER 2019-12-01 19:27 | Inpatient (IN) | payer OTHER, MEDICAID ==
[~2019-12-01] VITALS: Ht 160 cm; Wt 102.0 kg
[~2019-12-01 19:27] MED LIST changes: +METF500T16 PO
[2019-12-01] MEDS ORDERED: ONDANSETRON PF 4 MG/2 ML VIAL. IV ONE (21:00)
[2019-12-01] MEDS ORDERED: IV NORMAL SALINE 1000ML BAG 1,000 ML IV ONE (21:00)
[2019-12-01] MEDS ORDERED: MORPHINE SULFATE 10 MG/ML VIAL. IV STA (21:00)
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
[2019-12-01 21:09] LABS: BILIRUBIN,URINE NEGATIVE (NEG); CLARITY,URINE CLOUDY; COLOR,URINE YELLOW; NITRITE,URINE NEGATIVE (NEG); PROTEIN,URINE NEGATIVE (NEG-TRACE); UROBILINOGEN,URINE 0.2 mg/dL (0.2 mg/dL)
[2019-12-01 21:16] LABS: BACTERIA,URINE MODERATE /HPF (0-FEW); RBC,URINE 0 /HPF (0-2); SQUAMOUS EPITHELIAL CELL,UR OCC /LPF
[2019-12-01 21:46] LABS: BASO # 0.1 x10^3/uL (0.0-0.2); BASO % 1 % (0-3); EOS # 0.2 x10^3/uL (0.0-0.7); EOS % 2 % (0-3); HEMATOCRIT 35.5 % (36.0-47.0); LYMPH # 3.2 x10^3/uL (1.0-4.8); LYMPH % 30 % (24-48); MEAN CORPUSCULAR VOLUME 88 fL (79-100); MONO % 9 % (0-9); NEUT # 6.3 x10^3/uL (1.8-7.7); NEUT % 58 % (31-73); PLATELET COUNT 152 x10^3/uL (140-400); RED BLOOD COUNT 4.04 x10^6/uL (3.50-5.40); WHITE BLOOD COUNT 10.8 x10^3/uL (4.0-11.0)
[2019-12-01 22:29] LABS: HEMOGLOBIN 11.9 g/dL (12.0-15.5); MEAN CORPUSCULAR HEMOGLOBIN 29 pg (25-35); MEAN CORPUSCULAR HGB CONC 34 g/dL (31-37)
[2019-12-01] MEDS ORDERED: fentaNYL PF VIAL 100 MCG/2 ML VIAL IV ONE (22:30)
[2019-12-01 22:46] LABS: PLT ESTIMATE ADEQUATE (ADEQUATE)
[2019-12-01 22:58] LABS: ALBUMIN 3.1 g/dL (3.4-5.0); CALCIUM 7.5 mg/dL (8.5-10.1)
[2019-12-01 22:59] LABS: TOTAL BILIRUBIN 0.7 mg/dL (0.2-1.0)
[2019-12-01 23:16] LABS: ALBUMIN/GLOBULIN RATIO 0.7 (1.0-1.7); TOTAL PROTEIN 7.8 g/dL (6.4-8.2)
[2019-12-02] MEDS ORDERED: fentaNYL PF VIAL 100 MCG/2 ML VIAL IV ONE
[2019-12-02 00:01] LABS: CREATININE 0.7 mg/dL (0.6-1.0); GFR 94.2
[2019-12-02] MEDS ORDERED: CEPH-264 PO (00:11)
[2019-12-02] MEDS ORDERED: IOHEXOL 300 MG/ML 100ML VIAL. IV ONE (00:15)
[2019-12-02] MEDS ORDERED: CONTRAST GIVEN. MC PRN (00:15)
--- NOTE | 2019-12-02 00:46 | RAD ---
CT SCAN OF THE ABDOMEN AND PELVIS WITH IV CONTRAST. History: Diffuse abdominal pain Comparison:None. Procedure: Contiguous axial images of the abdomen and pelvis were performed after the administration of 75 cc of Isovue 370 IV contrast. Oral contrast: No. Findings: The gallbladder appears within normal lives. The appendix appears normal. There is inflammation seen inferior to the head of the pancreas and surrounding the cysts third and fourth portions the duodenum. Liver: Unremarkable Spleen: Unremarkable Adrenal Glands: Unremarkable Kidneys: There is a small cyst in the mid right kidney laterally. There is no mass or lymphadenopathy. There is no free air. There is no free fluid. The urinary bladder appears normal. Impression: Inflation inferior to the head of the pancreas and around the third and fourth portions of the duodenum could be pancreatitis or duodenitis. PQRS Compliance Statement: One or more of the following individualized dose reduction techniques were utilized for this examination: 1. Automated exposure control 2. Adjustment of the mA and/or kV according to patient size 3. Use of iterative reconstruction technique Electronically signed by: Bautista Mosquera III, MD (12/02/2019 12:43 AM) [id number]
[2019-12-02] MEDS ORDERED: MORPHINE SULFATE 2 MG/ML VIAL. IV PRN (02:00)
[2019-12-02] MEDS ORDERED: CIPROFLOXACIN 400MG PREMIX 200 ML IV ONE (02:00)
[2019-12-02 03:19] VITALS: BP 128/85
[2019-12-02] MEDS ORDERED: fentaNYL PF VIAL 100 MCG/2 ML VIAL IVP PRN (04:15)
[2019-12-02 04:51] LABS: BASO # 0.1 x10^3/uL (0.0-0.2); BASO % 1 % (0-3); EOS # 0.1 x10^3/uL (0.0-0.7); EOS % 2 % (0-3); HEMOGLOBIN 11.9 g/dL (12.0-15.5); LYMPH # 2.3 x10^3/uL (1.0-4.8); LYMPH % 28 % (24-48); MEAN CORPUSCULAR HEMOGLOBIN 31 pg (25-35); MEAN CORPUSCULAR HGB CONC 35 g/dL (31-37); MEAN CORPUSCULAR VOLUME 89 fL (79-100); MONO # 0.6 x10^3/uL (0.0-1.1); MONO % 7 % (0-9); NEUT # 5.1 x10^3/uL (1.8-7.7); NEUT % 62 % (31-73); PLATELET COUNT 114 x10^3/uL (140-400); RED BLOOD COUNT 3.83 x10^6/uL (3.50-5.40); RED CELL DISTRIBUTION WIDTH 14.6 % (11.5-14.5); WHITE BLOOD COUNT 8.3 x10^3/uL (4.0-11.0)
[2019-12-02 05:13] LABS: PLT ESTIMATE DECREASED (ADEQUATE)
[2019-12-02 05:44] LABS: ALBUMIN/GLOBULIN RATIO 0.8 (1.0-1.7); ALK PHOS 79 U/L (46-116); ALT (SGPT) 23 U/L (14-59); ANION GAP 11 (6-14); AST (SGOT) 25 U/L (15-37); BLOOD UREA NITROGEN 7 mg/dL (7-20); BUN/CREATININE RATIO 10 (6-20); CALCIUM 8.4 mg/dL (8.5-10.1); CARBON DIOXIDE 26 mmol/L (21-32); CHLORIDE 103 mmol/L (98-107); CHOLESTEROL 190 mg/dL (0-200); CHOLESTEROL/HDL RATIO 10.6; CREATININE 0.7 mg/dL (0.6-1.0); GFR 94.2; GLUCOSE 123 mg/dL (70-99); HDLC 18 mg/dL (40-60); POTASSIUM 4.1 mmol/L (3.5-5.1); SODIUM 140 mmol/L (136-145); TOTAL BILIRUBIN 0.4 mg/dL (0.2-1.0); TOTAL PROTEIN 6.9 g/dL (6.4-8.2); TRIGLYCERIDES 791 mg/dL (0-150); VLDLC 158 mg/dL (0-40)
[2019-12-02 07:48] VITALS: BP 133/89
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
[2019-12-02] MEDS ORDERED: oxyCODONE/APAP 5/325 1 TAB TABLET PO PRN (08:45)
[2019-12-02] MEDS ORDERED: IV DEXTROSE 5% 250 ML BAG. IV PRN (08:45)
[2019-12-02] MEDS ORDERED: DEXTROSE 50% 25 GM / 50ML DISP.SYRIN. IV PRN (08:45)
[2019-12-02] MEDS: DOCUSATE SODIUM 100 MG CAPSULE. PO SCH ×2 (09:00→20:42)
[2019-12-02] MEDS: DICYCLOMINE HCL 10 MG CAPSULE PO SCH ×3 (09:00→20:43)
[2019-12-02] MEDS: HYDROmorphone 2 MG/ML VIAL IVP PRN ×3 (10:13→20:42)
[2019-12-02] MEDS: PANTOPRAZOLE IV PUSH 40 MG VIAL. IVP SCH (10:14)
[2019-12-02] MEDS: NICOTINE 14MG PATCH. TD SCH (10:14)
[2019-12-02] MEDS: ONDANSETRON PF 4 MG/2 ML VIAL. IVP PRN ×2 (10:27→16:06)
[2019-12-02] MEDS: KETOROLAC 30 MG/ML VIAL. IVP PRN ×2 (11:13→17:11)
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
[2019-12-02] MEDS: INSULIN LISPRO 300 UNITS/3 ML VIAL. SQ SCH ×3 (11:30→20:42)
[2019-12-02 11:59] VITALS: BP 124/77
[2019-12-02] MEDS ORDERED: PROPOFOL 20 ML IV ONE (13:20)
[2019-12-02] MEDS ORDERED: LIDOCAINE 2% PF 5 ML VIAL. ONE (13:20)
[2019-12-02] MEDS: IV RINGERS,LACTATED 1000ML 1,000 ML IV SCH (14:21)
--- NOTE | 2019-12-02 15:08 | NUR ---
SS following for discharge planning. SS reviewed pt chart. Pt is from home with spouse and is currently on room air. SS will continue to follow for discharge planning.
--- NOTE | 2019-12-02 15:23 | PDOC4 ---
PROCEDURE Procedure EGD/biopsies Indication: Abd pain/abnromal imaging--duodenitis? Meds: per anesthesia Findings: E--Mild esophagitis at 40 cm. G--Mild pre-pyloric erythema, biopsied. D--Normal to distal duodenal loop. Kash. well. IMP: GERD Antral erythema No evident duodenal inflammation. Pancreatitis and we missed the enzyme peak? Note high TG's. REC: PPI daily. OK to try clears. Abd tomáso re: "stones?" ANTHONY COLLADO MD Dec 02, 2019 15:23
[2019-12-02 15:59] VITALS: BP 104/63
--- NOTE | 2019-12-02 16:47 | RAD ---
EXAM: Abdomen sonogram. HISTORY: Pain. TECHNIQUE: Sonographic imaging of the abdomen was performed. COMPARISON: 08/15/2018. FINDINGS: The liver is enlarged. There is hepatic steatosis. No focal hepatic lesion is seen. The common bile duct is normal in caliber. The gallbladder is unremarkable. The kidneys are prominent in size, likely appropriate for patient body habitus. The right adrenal gland is surgically absent. The left adrenal gland is not seen. The downstream pancreatic duct is prominent. The spleen is enlarged, measuring 15.3 cm. The aorta and inferior vena cava are obscured due to body habitus and bowel gas. IMPRESSION: 1. Hepatomegaly and hepatic steatosis. 2. Mild splenomegaly. 3. Mildly prominent downstream pancreatic duct. No pancreatic lesion is seen. ERCP or MRCP can be performed if there is concern for an occult obstructing etiology. 4. Limited exam due to bowel gas and body habitus. Electronically signed by: Mariah Brady MD (12/02/2019 4:44 PM) [facility] [place]
[2019-12-02 19:00] VITALS: BP 119/69
[2019-12-02 23:00] VITALS: BP 125/80
[2019-12-02 23:07] LABS: HEMOGLOBIN A1C 5.7 % (4.8-5.6)
[2019-12-03] MEDS: IV RINGERS,LACTATED 1000ML 1,000 ML IV SCH ×3 (00:30→20:30)
[2019-12-03] MEDS: KETOROLAC 30 MG/ML VIAL. IVP PRN (01:19)
[2019-12-03] MEDS: ONDANSETRON PF 4 MG/2 ML VIAL. IVP PRN ×2 (01:19→16:49)
[2019-12-03] MEDS: HYDROmorphone 2 MG/ML VIAL IVP PRN ×4 (01:20→21:33)
[2019-12-03 03:00] VITALS: BP 125/66
[2019-12-03 07:15] VITALS: BP 121/94
[2019-12-03] MEDS: INSULIN LISPRO 300 UNITS/3 ML VIAL. SQ SCH ×4 (07:30→21:34)
[2019-12-03] MEDS: DICYCLOMINE HCL 10 MG CAPSULE PO SCH ×3 (08:42→21:34)
[2019-12-03] MEDS: DOCUSATE SODIUM 100 MG CAPSULE. PO SCH ×2 (08:42→21:33)
[2019-12-03] MEDS: PANTOPRAZOLE IV PUSH 40 MG VIAL. IVP SCH (08:43)
[2019-12-03] MEDS: NICOTINE 14MG PATCH. TD SCH (08:44)
[2019-12-03] MEDS: ONDANSETRON ODT 4 MG TAB.RAPDIS. PO PRN (09:12)
--- NOTE | 2019-12-03 10:53 | PDOC ---
Subjective: Subjective: Drinking apple juice and grape juice but feeling nauseated, still has upper abdominal cramping. Passing gas, no stool. Objective: Vital Signs: Vital Signs Date Time Temp Pulse Resp B/P (MAP) Pulse Ox O2 Delivery O2 Flow Rate FiO2 12/03/19 10:09 95 Room Air 2.0 12/03/19 07:15 99.2 101 18 121/94 (103) 99.2 Labs: Laboratory Tests Test 12/02/19 13:04 12/02/19 16:50 12/02/19 21:13 12/03/19 07:41 Glucose (Fingerstick) 98 mg/dL 109 mg/dL 100 mg/dL 121 mg/dL Imaging: EGD 12/02 E--Mild esophagitis at 40 cm. G--Mild pre-pyloric erythema, biopsied. D--Normal to distal duodenal loop. IMP: GERD Antral erythema No evident duodenal inflammation. Pancreatitis and we missed the enzyme peak? Note high TG's. REC: PPI daily. OK to try clears. Abd sono re: "stones?" US 12/02 IMPRESSION: 1. Hepatomegaly and hepatic steatosis. 2. Mild splenomegaly. 3. Mildly prominent downstream pancreatic duct. No pancreatic lesion is seen. ERCP or MRCP can be performed if there is concern for an occult obstructing etiology. 4. Limited exam due to bowel gas and body habitus. PE: GEN: NAD LUNGS: CTAB HEART: RRR ABD: quiet, soft, epigastric discomfort NEURO/PSYCH: A & O 3 A/P: Upper abdominal pain, nausea GERD - on PPI ?pancreatitis - no gallstones, h/o hypertriglyceridemia Hepatomegaly/hepatic steatosis DM, suspect IBS -- Ongoing symptoms, need to review next step w/ Dr. Jackson. Hemodynamically unstable?: No Is patient in severe pain?: Yes Is NPO status required?: No OLIVIER MAYFIELD Dec 03, 2019 10:53
[2019-12-03 11:03] VITALS: BP 134/89
[2019-12-03 11:47] LABS: ALBUMIN/GLOBULIN RATIO 0.9 (1.0-1.7); CALCIUM 8.5 mg/dL (8.5-10.1); CREATININE 0.7 mg/dL (0.6-1.0); GFR 94.2; POTASSIUM 3.7 mmol/L (3.5-5.1); TOTAL BILIRUBIN 0.6 mg/dL (0.2-1.0); TOTAL PROTEIN 6.5 g/dL (6.4-8.2)
[2019-12-03] MEDS: traMADol 50 MG TABLET PO PRN ×3 (12:10→18:20)
[2019-12-03 15:04] VITALS: BP 133/79
--- NOTE | 2019-12-03 17:32 | PDOC ---
PROGRESS NOTES Chief Complaint Chief Complaint A/P: Abdominal pain - likely related to duodenitis. Lipase negative, could be recovering from pancreatitis based on imaging. Will keep NPO, pain control. stool cultures Duodenitis on CT - given antibiotics in ED. Will consult GI, check inflammatory markers Pancreatitis - on US, this may have been a missed enzyme, clearly pancreatitis Anemia - likely from chronic disease. Will check iron stores Mild protein calorie malnutrition - from acute GI illness. will start nutrition as soon as she is able Hypertriglyceridemia - taken off fibrate recently. Will initiate insulin now to lower her triglycerides acutely, add back fibrate when her pain has improved and taking PO and add Lovaza or Vascepa Hyperglycemia - will check A1c, likely diabetic, for now will add insulin therapy. Hold metformin as she received IV contrast FEN - NPO PPX - lovenox FULL CODE Dispo - inpatient for intractable abdominal pain, NPO History of Present Illness History of Present Illness Ms Alonso is a 39yo F/ w/ PMHx Asthma, Bronchitis, familial h ypertriglycermidemia, Fibromyalgia, High Cholesterol, Chronic back pain, PCOS, hirsutism, prediabetes (gestational diabetes x3 children) who presents with acute abdominal pain starting 3 days ago. She notes abdominal pain has been inte rmittently ongoing for 2 months which went away for a week at a time, but when it returns, has steadily been worsening. The patient states that the abdominal pain has been intermittent nature and 1 week ago had it, then resolved, but 3 days ago has increased in pain. Associated symptoms of nausea, now she has no appetite. The patient denies fever. The patient states she saw her primary doctor couple days ago and was ultrasound scheduled for Friday however states the pain got so bad she could not wait. She rates her pain 10 out of 10 in severity and sharp, epigastric and RUQ. On CT abdomen/pelvis duodenal and pancreatic inflammation noted. Lipase not elevated, triglycerides 791. Glucose elevated. She does have h/o right adrenalectomy (benign myolipoma), denies familial history of IBD, though her mother has chronic diarrhea. She has never had an EGD or colonoscopy before. She does note she was recently diagnosed with HPV. Admitted for pain control, NPO, to EGD on 12/02 - Mild esophagitis at 40 cm, Mild pre-pyloric erythema, biopsied, Normal to distal duodenal loop. GI recommends we may have missed lipase elevation as she exhibits all signs of pancreatitis. Still with pain today. Clear liquid diet. Notes that toradol injections hurt now as well. Vitals Vitals Vital Signs Date Time Temp Pulse Resp B/P (MAP) Pulse Ox O2 Delivery O2 Flow Rate FiO2 12/03/19 16:45 96 Room Air 2.0 12/03/19 15:04 99.2 86 20 133/79 (97) 99.2 Physical Exam General: Alert, Oriented X3, Cooperative, moderate distress Abdomen: Normal bowel sounds, Soft, Other (RUQ and epigastric) Extremities: No clubbing, No cyanosis, No edema, Normal pulses, No tenderness/swelling Skin: No rashes, No breakdown, No significant lesion Labs LABS Laboratory Tests Test 12/02/19 21:13 12/03/19 07:41 12/03/19 10:00 12/03/19 11:25 Glucose (Fingerstick) 100 mg/dL (70-99) 121 mg/dL (70-99) 126 mg/dL (70-99) Sodium Level 140 mmol/L (136-145) Potassium Level 3.7 mmol/L (3.5-5.1) Chloride Level 100 mmol/L (98-107) Carbon Dioxide Level 26 mmol/L (21-32) Anion Gap 14 (6-14) Blood Urea Nitrogen 5 mg/dL (7-20) Creatinine 0.7 mg/dL (0.6-1.0) Estimated GFR (Cockcroft-Gault) 94.2 BUN/Creatinine Ratio 7 (6-20) Glucose Level 153 mg/dL (70-99) Calcium Level 8.5 mg/dL (8.5-10.1) Total Bilirubin 0.6 mg/dL (0.2-1.0) Aspartate Amino Transf (AST/SGOT) 12 U/L (15-37) Alanine Aminotransferase (ALT/SGPT) 18 U/L (14-59) Alkaline Phosphatase 89 U/L (46-116) Total Protein 6.5 g/dL (6.4-8.2) Albumin 3.0 g/dL (3.4-5.0) Albumin/Globulin Ratio 0.9 (1.0-1.7) Test 12/03/19 17:01 Glucose (Fingerstick) 121 mg/dL (70-99) Assessment and Plan Assessmemt and Plan Problems Medical Problems: (1) Abdominal pain Status: Acute (2) Acute duodenitis Status: Acute (3) Urinary tract infection Status: Acute Comment Review of Relevant I have reviewed the following items naty (where applicable) has been applied. Labs Laboratory Tests Test 12/01/19 19:57 12/01/19 20:00 12/01/19 21:30 12/02/19 04:00 Urine Collection Type Void Urine Color Yellow Urine Clarity Cloudy Urine pH 6.0 Urine Specific Mccall 1.020 Urine Protein Negative mg/dL (NEG-TRACE) Urine Glucose (UA) Negative mg/dL (NEG) Urine Ketones (Stick) Negative mg/dL (NEG) Urine Blood Negative (NEG) Urine Nitrite Negative (NEG) Urine Bilirubin Negative (NEG) Urine Urobilinogen Dipstick 0.2 mg/dL (0.2 mg/dL) Urine Leukocyte Esterase Moderate (NEG) Urine RBC 0 /HPF (0-2) Urine WBC 11-20 /HPF (0-4) Urine Squamous Epithelial Cells Occ /LPF Urine Bacteria Moderate /HPF (0-FEW) Urine Mucus Mod /LPF Bedside Urine HCG, Qualitative Hcg negative (Negative) White Blood Count 10.8 x10^3/uL (4.0-11.0) 8.3 x10^3/uL (4.0-11.0) Red Blood Count 4.04 x10^6/uL (3.50-5.40) 3.83 x10^6/uL (3.50-5.40) Hemoglobin 11.9 g/dL (12.0-15.5) 11.9 g/dL (12.0-15.5) Hematocrit 35.5 % (36.0-47.0) 34.0 % (36.0-47.0) Mean Corpuscular Volume 88 fL (79-100) 89 fL (79-100) Mean Corpuscular Hemoglobin 29 pg (25-35) 31 pg (25-35) Mean Corpuscular Hemoglobin Concent 34 g/dL (31-37) 35 g/dL (31-37) Red Cell Distribution Width 15.0 % (11.5-14.5) 14.6 % (11.5-14.5) Platelet Count 152 x10^3/uL (140-400) 114 x10^3/uL (140-400) Neutrophils (%) (Auto) 58 % (31-73) 62 % (31-73) Lymphocytes (%) (Auto) 30 % (24-48) 28 % (24-48) Monocytes (%) (Auto) 9 % (0-9) 7 % (0-9) Eosinophils (%) (Auto) 2 % (0-3) 2 % (0-3) Basophils (%) (Auto) 1 % (0-3) 1 % (0-3) Neutrophils # (Auto) 6.3 x10^3/uL (1.8-7.7) 5.1 x10^3/uL (1.8-7.7) Lymphocytes # (Auto) 3.2 x10^3/uL (1.0-4.8) 2.3 x10^3/uL (1.0-4.8) Monocytes # (Auto) 1.0 x10^3/uL (0.0-1.1) 0.6 x10^3/uL (0.0-1.1) Eosinophils # (Auto) 0.2 x10^3/uL (0.0-0.7) 0.1 x10^3/uL (0.0-0.7) Basophils # (Auto) 0.1 x10^3/uL (0.0-0.2) 0.1 x10^3/uL (0.0-0.2) Platelet Estimate Adequate (ADEQUATE) Decreased (ADEQUATE) Giant Platelets Few Few Sodium Level 133 mmol/L (136-145) 140 mmol/L (136-145) Potassium Level 4.0 mmol/L (3.5-5.1) 4.1 mmol/L (3.5-5.1) Chloride Level 88 mmol/L (98-107) 103 mmol/L (98-107) Carbon Dioxide Level 23 mmol/L (21-32) 26 mmol/L (21-32) Anion Gap 22 (6-14) 11 (6-14) Blood Urea Nitrogen 7 mg/dL (7-20) 7 mg/dL (7-20) Creatinine 0.7 mg/dL (0.6-1.0) 0.7 mg/dL (0.6-1.0) Estimated GFR (Cockcroft-Gault) 94.2 94.2 BUN/Creatinine Ratio 10 (6-20) 10 (6-20) Glucose Level 181 mg/dL (70-99) 123 mg/dL (70-99) Calcium Level 7.5 mg/dL (8.5-10.1) 8.4 mg/dL (8.5-10.1) Total Bilirubin 0.7 mg/dL (0.2-1.0) 0.4 mg/dL (0.2-1.0) Aspartate Amino Transf (AST/SGOT) 24 U/L (15-37) 25 U/L (15-37) Alanine Aminotransferase (ALT/SGPT) 8 U/L (14-59) 23 U/L (14-59) Alkaline Phosphatase 81 U/L (46-116) 79 U/L (46-116) Total Protein 7.8 g/dL (6.4-8.2) 6.9 g/dL (6.4-8.2) Albumin 3.1 g/dL (3.4-5.0) 3.0 g/dL (3.4-5.0) Albumin/Globulin Ratio 0.7 (1.0-1.7) 0.8 (1.0-1.7) Lipase 296 U/L (73-393) Hemoglobin A1c 5.7 % (4.8-5.6) C-Reactive Protein, Quantitative 24.4 mg/L (0-3.3) Triglycerides Level 791 mg/dL (0-150) Cholesterol Level 190 mg/dL (0-200) LDL Cholesterol, Calculated mg/dL (0-100) VLDL Cholesterol, Calculated 158 mg/dL (0-40) Non-HDL Cholesterol Calculated 172 mg/dL (0-129) HDL Cholesterol 18 mg/dL (40-60) Cholesterol/HDL Ratio 10.6 Thyroid Stimulating Hormone (TSH) 2.409 uIU/mL (0.358-3.74) Test 12/02/19 08:55 12/02/19 13:04 12/02/19 16:50 12/02/19 21:13 Erythrocyte Sedimentation Rate 35 (0-25) Glucose (Fingerstick) 98 mg/dL (70-99) 109 mg/dL (70-99) 100 mg/dL (70-99) Test 12/03/19 07:41 12/03/19 10:00 12/03/19 11:25 12/03/19 17:01 Glucose (Fingerstick) 121 mg/dL (70-99) 126 mg/dL (70-99) 121 mg/dL (70-99) Sodium Level 140 mmol/L (136-145) Potassium Level 3.7 mmol/L (3.5-5.1) Chloride Level 100 mmol/L (98-107) Carbon Dioxide Level 26 mmol/L (21-32) Anion Gap 14 (6-14) Blood Urea Nitrogen 5 mg/dL (7-20) Creatinine 0.7 mg/dL (0.6-1.0) Estimated GFR (Cockcroft-Gault) 94.2 BUN/Creatinine Ratio 7 (6-20) Glucose Level 153 mg/dL (70-99) Calcium Level 8.5 mg/dL (8.5-10.1) Total Bilirubin 0.6 mg/dL (0.2-1.0) Aspartate Amino Transf (AST/SGOT) 12 U/L (15-37) Alanine Aminotransferase (ALT/SGPT) 18 U/L (14-59) Alkaline Phosphatase 89 U/L (46-116) Total Protein 6.5 g/dL (6.4-8.2) Albumin 3.0 g/dL (3.4-5.0) Albumin/Globulin Ratio 0.9 (1.0-1.7) Laboratory Tests Test 12/02/19 21:13 12/03/19 07:41 12/03/19 10:00 12/03/19 11:25 Glucose (Fingerstick) 100 mg/dL (70-99) 121 mg/dL (70-99) 126 mg/dL (70-99) Sodium Level 140 mmol/L (136-145) Potassium Level 3.7 mmol/L (3.5-5.1) Chloride Level 100 mmol/L (98-107) Carbon Dioxide Level 26 mmol/L (21-32) Anion Gap 14 (6-14) Blood Urea Nitrogen 5 mg/dL (7-20) Creatinine 0.7 mg/dL (0.6-1.0) Estimated GFR (Cockcroft-Gault) 94.2 BUN/Creatinine Ratio 7 (6-20) Glucose Level 153 mg/dL (70-99) Calcium Level 8.5 mg/dL (8.5-10.1) Total Bilirubin 0.6 mg/dL (0.2-1.0) Aspartate Amino Transf (AST/SGOT) 12 U/L (15-37) Alanine Aminotransferase (ALT/SGPT) 18 U/L (14-59) Alkaline Phosphatase 89 U/L (46-116) Total Protein 6.5 g/dL (6.4-8.2) Albumin 3.0 g/dL (3.4-5.0) Albumin/Globulin Ratio 0.9 (1.0-1.7) Test 12/03/19 17:01 Glucose (Fingerstick) 121 mg/dL (70-99) Medications Current Medications Ondansetron HCl (Zofran) 4 mg 1X ONCE IV Last administered on 12/01/19at 21:39; Start 12/01/19 at 21:00; Stop 12/01/19 at 21:02; Status DC Morphine Sulfate (Morphine Sulfate) 5 mg 1X STAT IV Last administered on 12/01/19at 21:40; Start 12/01/19 at 21:00; Stop 12/01/19 at 21:02; Status DC Sodium Chloride 1,000 ml @ 1,000 mls/hr 1X ONCE IV Last administered on 12/01/19at 21:39; Start 12/01/19 at 21:00; Stop 12/01/19 at 21:59; Status DC Fentanyl Citrate (Fentanyl 2ml Vial) 75 mcg 1X ONCE IV Last administered on 12/01/19at 22:38; Start 12/01/19 at 22:30; Stop 12/01/19 at 22:31; Status DC Fentanyl Citrate (Fentanyl 2ml Vial) 75 mcg 1X ONCE IV Last administered on 12/02/19at 00:04; Start 12/02/19 at 00:00; Stop 12/02/19 at 00:01; Status DC Iohexol (Omnipaque 300 Mg/ml) 75 ml 1X ONCE IV Last administered on 12/02/19at 00:14; Start 12/02/19 at 00:15; Stop 12/02/19 at 00:16; Status DC Info (CONTRAST GIVEN -- Rx MONITORING) 1 each PRN DAILY PRN MC SEE COMMENTS; Start 12/02/19 at 00:15; Stop 12/04/19 at 00:14 Morphine Sulfate (Morphine Sulfate) 2 mg PRN Q2HR PRN IV PAIN Last administered on 12/02/19at 03:56; Start 12/02/19 at 02:00; Stop 12/02/19 at 04:16; Status DC Ondansetron HCl (Zofran) 4 mg PRN Q6HRS PRN IVP NAUSEA/VOMITING Last administered on 12/03/19at 16:49; Start 12/02/19 at 02:00 Ciprofloxacin/ Dextrose 200 ml @ 200 mls/hr 1X ONCE IV Last administered on 12/02/19at 03:25; Start 12/02/19 at 02:00; Stop 12/02/19 at 02:59; Status DC Metronidazole 100 ml @ 100 mls/hr 1X ONCE IV Last administered on 12/02/19at 06:14; Start 12/02/19 at 02:00; Stop 12/02/19 at 02:59; Status DC Fentanyl Citrate (Fentanyl 2ml Vial) 75 mcg PRN Q4HRS PRN IVP PAIN Last administered on 12/02/19at 06:14; Start 12/02/19 at 04:15; Stop 12/02/19 at 09:24; Status DC Docusate Sodium (Colace) 100 mg BID PO Last administered on 12/03/19at 08:42; Start 12/02/19 at 09:00 Nicotine (Nicoderm Cq 14mg) 1 patch DAILY TD Last administered on 12/02/19at 10 :14; Start 12/02/19 at 09:00 Ondansetron HCl (Zofran Odt) 4 mg PRN Q8HRS PRN PO n/v Last administered on 12/03/19at 09:12; Start 12/02/19 at 08:45 Oxycodone/ Acetaminophen (Percocet 5/325) 1 tab PRN Q6HRS PRN PO PAIN; Start 12/02/19 at 08:45; Stop 12/02/19 at 08:40; Status DC Dicyclomine HCl (Bentyl) 20 mg TID PO Last administered on 12/03/19at 13:37; Start 12/02/19 at 09:00 Insulin Human Lispro (HumaLOG) 0-9 UNITS TIDACHC SQ ; Start 12/02/19 at 11:30 Dextrose (Dextrose 50%-Water Syringe) 12.5 gm PRN Q15MIN PRN IV SEE COMMENTS; Start 12/02/19 at 08:45 Dextrose (Iv Dextrose 5%) 250 ml PRN Q15MIN PRN IV SEE COMMENTS; Start 12/02/19 at 08:45 Tramadol HCl (Ultram) 50 mg PRN Q6HRS PRN PO PAIN Last administered on 12/03/19at 12:21; Start 12/02/19 at 08:45 Ketorolac Tromethamine (Toradol 30mg Vial) 30 mg PRN Q6HRS PRN IVP PAIN Last administered on 12/03/19at 01:19; Start 12/02/19 at 09:30; Stop 12/07/19 at 09:29 Hydromorphone HCl (Dilaudid) 0.4 mg PRN Q4HRS PRN IVP PAIN Last administered on 12/03/19at 16:45; Start 12/02/19 at 09:30 Pantoprazole Sodium (PROTONIX VIAL for IV PUSH) 40 mg DAILYAC IVP Last administered on 12/03/19at 08:43; Start 12/02/19 at 09:45 Propofol 20 ml @ As Directed STK-MED ONCE IV ; Start 12/02/19 at 13:20; Stop 12/02/19 at 13:20; Status DC Lidocaine HCl (Lidocaine Pf 2% Vial) 5 ml STK-MED ONCE .ROUTE ; Start 12/02/19 at 13:20; Stop 12/02/19 at 13:20; Status DC Ringer's Solution 1,000 ml @ 100 mls/hr Q10H IV Last administered on 12/03/19at 11:51; Start 12/02/19 at 14:30 Active Scripts Active Keflex (Cephalexin) 500 Mg Capsule 1 Cap PO BID 7 Days Metformin Hcl 500 Mg Tablet 500 Mg PO BIDWMEALS Tessalon Perle (Benzonatate) 100 Mg Capsule 1 Cap PO TID Medrol (Methylprednisolone) 4 Mg Tab.ds.pk 1 Pkg PO UD Prednisone 50 Mg Tablet 1 Tab PO DAILY Tessalon Perle (Benzonatate) 100 Mg Capsule 1 Cap PO TID Proventil Hfa Inhaler (Albuterol Sulfate) 6.7 Gm Hfa.aer.ad 1 Puff IH PRN Q4HRS PRN Zofran Odt (Ondansetron) 4 Mg Tab.rapdis 1 Tab SL Q8HRS Dicyclomine Hcl 20 Mg Tablet 1 Tab PO TID Prednisone 50 Mg Tablet 1 Tab PO DAILY Tessalon Perle (Benzonatate) 100 Mg Capsule 1 Cap PO TID Ventolin Hfa Inhaler (Albuterol Sulfate) 18 Gm Hfa.aer.ad 2 Puff INH Q4HRS Ambien (Zolpidem Tartrate) 5 Mg Tablet 1 Tab PO QHS NICODERM CQ 14mg (Nicotine) 1 Each Patch.td24 1 Patch TP DAILY Percocet 5-325 Mg Tablet (Oxycodone/Acetaminophen) 1 Each Tablet 1 Tab PO PRN Q6HRS PRN Reglan (Metoclopramide Hcl) 10 Mg Tablet 1 Tab PO TID Reported Docusate Sodium 100 Mg Capsule 100 Mg PO BID Vitals/I & O Vital Sign - Last 24 Hours 12/02/19 12/02/19 12/02/19 12/02/19 19:00 19:56 20:42 21:30 Temp 99.8 99.8 Pulse 99 Resp 17 B/P (MAP) 119/69 (86) Pulse Ox 95 O2 Delivery Room Air Room Air Room Air Room Air 12/02/19 12/03/19 12/03/19 12/03/19 23:00 01:20 03:00 04:20 Temp 99.6 98.0 99.6 98.0 Pulse 113 87 Resp 17 16 B/P (MAP) 125/80 (95) 125/66 (85) Pulse Ox 90 93 O2 Delivery Room Air Room Air Room Air Room Air 12/03/19 12/03/19 12/03/19 12/03/19 07:15 08:00 09:13 10:09 Temp 99.2 99.2 Pulse 101 Resp 18 B/P (MAP) 121/94 (103) Pulse Ox 95 95 95 O2 Delivery Room Air Room Air Room Air Room Air O2 Flow Rate 2.0 2.0 2.0 12/03/19 12/03/19 12/03/19 12/03/19 11:03 12:21 13:36 15:04 Temp 99.6 99.2 99.6 99.2 Pulse 98 86 Resp 18 20 B/P (MAP) 134/89 (104) 133/79 (97) Pulse Ox 94 94 94 96 O2 Delivery Room Air Room Air Room Air Room Air O2 Flow Rate 2.0 12/03/19 16:45 Pulse Ox 96 O2 Delivery Room Air O2 Flow Rate 2.0 Intake and Output 12/02/19 12/02/19 12/03/19 15:00 23:00 07:00 Intake Total 0 ml 700 ml 0 ml Balance 0 ml 700 ml 0 ml Hemodynamically unstable?: No Is patient in severe pain?: Yes Is NPO status required?: No GERTRUDIS GALICIA MD Dec 03, 2019 17:32
[2019-12-03 19:00] VITALS: BP 144/101
[2019-12-03 23:00] VITALS: BP 136/97
[2019-12-04] MEDS: HYDROmorphone 2 MG/ML VIAL IVP PRN ×3 (02:38→13:08)
[2019-12-04 03:00] VITALS: BP 127/83
[2019-12-04 05:52] LABS: ALBUMIN 2.8 g/dL (3.4-5.0); ALBUMIN/GLOBULIN RATIO 0.7 (1.0-1.7); CALCIUM 8.8 mg/dL (8.5-10.1); CREATININE 0.6 mg/dL (0.6-1.0); GFR 112.5; POTASSIUM 3.7 mmol/L (3.5-5.1); TOTAL BILIRUBIN 0.5 mg/dL (0.2-1.0)
[2019-12-04] MEDS: IV RINGERS,LACTATED 1000ML 1,000 ML IV SCH (06:30)
[2019-12-04 07:00] VITALS: BP 130/85
[2019-12-04] MEDS: INSULIN LISPRO 300 UNITS/3 ML VIAL. SQ SCH ×3 (07:30→16:30)
[2019-12-04] MEDS: ONDANSETRON PF 4 MG/2 ML VIAL. IVP PRN (08:28)
[2019-12-04] MEDS: PANTOPRAZOLE IV PUSH 40 MG VIAL. IVP SCH (08:28)
[2019-12-04] MEDS: DOCUSATE SODIUM 100 MG CAPSULE. PO SCH (08:29)
[2019-12-04] MEDS: NICOTINE 14MG PATCH. TD SCH (08:29)
[2019-12-04] MEDS: DICYCLOMINE HCL 10 MG CAPSULE PO SCH ×3 (08:29→19:23)
--- NOTE | 2019-12-04 09:37 | PDOC ---
PROGRESS NOTES Chief Complaint Chief Complaint A/P: Abdominal pain - likely related to duodenitis. Lipase negative, could be recovering from pancreatitis based on imaging. Will keep NPO, pain control. stool cultures Duodenitis on CT - given antibiotics in ED. Will consult GI, check inflammatory markers Pancreatitis - on US, this may have been a missed enzyme, clearly pancreatitis Anemia - likely from chronic disease. Will check iron stores Mild protein calorie malnutrition - from acute GI illness. will start nutrition as soon as she is able Hypertriglyceridemia - taken off fibrate recently. Will initiate insulin now to lower her triglycerides acutely, add back fibrate when her pain has improved and taking PO and add Lovaza or Vascepa Hyperglycemia - will check A1c, likely diabetic, for now will add insulin therapy. Hold metformin as she received IV contrast FEN - NPO PPX - lovenox FULL CODE Dispo - inpatient for intractable abdominal pain, NPO History of Present Illness History of Present Illness Ms Alonso is a 39yo F/ w/ PMHx Asthma, Bronchitis, familial h ypertriglycermidemia, Fibromyalgia, High Cholesterol, Chronic back pain, PCOS, hirsutism, prediabetes (gestational diabetes x3 children) who presents with acute abdominal pain starting 3 days ago. She notes abdominal pain has been inte rmittently ongoing for 2 months which went away for a week at a time, but when it returns, has steadily been worsening. The patient states that the abdominal pain has been intermittent nature and 1 week ago had it, then resolved, but 3 days ago has increased in pain. Associated symptoms of nausea, now she has no appetite. The patient denies fever. The patient states she saw her primary doctor couple days ago and was ultrasound scheduled for Friday however states the pain got so bad she could not wait. She rates her pain 10 out of 10 in severity and sharp, epigastric and RUQ. On CT abdomen/pelvis duodenal and pancreatic inflammation noted. Lipase not elevated, triglycerides 791. Glucose elevated. She does have h/o right adrenalectomy (benign myolipoma), denies familial history of IBD, though her mother has chronic diarrhea. She has never had an EGD or colonoscopy before. She does note she was recently diagnosed with HPV. Admitted for pain control, NPO, to EGD on 12/02 - Mild esophagitis at 40 cm, Mild pre-pyloric erythema, biopsied, Normal to distal duodenal loop. GI recommends we may have missed lipase elevation as she exhibits all signs of pancreatitis. 12/03: Still with pain today. Clear liquid diet. Notes that toradol injections hurt now as well. Vomited last night and again this morning with clear liquid diet and still with "cramping" after eating. I have advised NPO and IVF. She really wishes to go home. Vitals Vitals Vital Signs Date Time Temp Pulse Resp B/P (MAP) Pulse Ox O2 Delivery O2 Flow Rate FiO2 12/04/19 08:39 Room Air 12/04/19 07:00 98.1 92 18 130/85 (100) 95 98.1 12/03/19 21:37 2.0 Physical Exam General: Alert, Oriented X3, Cooperative, moderate distress Abdomen: Normal bowel sounds, Soft, Other (RUQ and epigastric) Extremities: No clubbing, No cyanosis, No edema, Normal pulses, No tenderness/swelling Skin: No rashes, No breakdown, No significant lesion Labs LABS Laboratory Tests Test 12/03/19 10:00 12/03/19 11:25 12/03/19 17:01 12/03/19 20:45 Sodium Level 140 mmol/L (136-145) Potassium Level 3.7 mmol/L (3.5-5.1) Chloride Level 100 mmol/L (98-107) Carbon Dioxide Level 26 mmol/L (21-32) Anion Gap 14 (6-14) Blood Urea Nitrogen 5 mg/dL (7-20) Creatinine 0.7 mg/dL (0.6-1.0) Estimated GFR (Cockcroft-Gault) 94.2 BUN/Creatinine Ratio 7 (6-20) Glucose Level 153 mg/dL (70-99) Calcium Level 8.5 mg/dL (8.5-10.1) Total Bilirubin 0.6 mg/dL (0.2-1.0) Aspartate Amino Transf (AST/SGOT) 12 U/L (15-37) Alanine Aminotransferase (ALT/SGPT) 18 U/L (14-59) Alkaline Phosphatase 89 U/L (46-116) Total Protein 6.5 g/dL (6.4-8.2) Albumin 3.0 g/dL (3.4-5.0) Albumin/Globulin Ratio 0.9 (1.0-1.7) Glucose (Fingerstick) 126 mg/dL (70-99) 121 mg/dL (70-99) 108 mg/dL (70-99) Test 12/04/19 04:30 12/04/19 07:19 Sodium Level 139 mmol/L (136-145) Potassium Level 3.7 mmol/L (3.5-5.1) Chloride Level 101 mmol/L (98-107) Carbon Dioxide Level 27 mmol/L (21-32) Anion Gap 11 (6-14) Blood Urea Nitrogen 4 mg/dL (7-20) Creatinine 0.6 mg/dL (0.6-1.0) Estimated GFR (Cockcroft-Gault) 112.5 BUN/Creatinine Ratio 7 (-20) Glucose Level 101 mg/dL (70-99) Calcium Level 8.8 mg/dL (8.5-10.1) Total Bilirubin 0.5 mg/dL (0.2-1.0) Aspartate Amino Transf (AST/SGOT) 12 U/L (15-37) Alanine Aminotransferase (ALT/SGPT) 17 U/L (14-59) Alkaline Phosphatase 80 U/L (46-116) Total Protein 7.0 g/dL (6.4-8.2) Albumin 2.8 g/dL (3.4-5.0) Albumin/Globulin Ratio 0.7 (1.0-1.7) Glucose (Fingerstick) 110 mg/dL (70-99) Assessment and Plan Assessmemt and Plan Problems Medical Problems: (1) Abdominal pain Status: Acute (2) Acute duodenitis Status: Acute (3) Urinary tract infection Status: Acute Comment Review of Relevant I have reviewed the following items naty (where applicable) has been applied. Labs Laboratory Tests Test 12/02/19 13:04 12/02/19 16:50 12/02/19 21:13 12/03/19 07:41 Glucose (Fingerstick) 98 mg/dL (70-99) 109 mg/dL (70-99) 100 mg/dL (70-99) 121 mg/dL (70-99) Test 12/03/19 10:00 12/03/19 11:25 12/03/19 17:01 12/03/19 20:45 Sodium Level 140 mmol/L (136-145) Potassium Level 3.7 mmol/L (3.5-5.1) Chloride Level 100 mmol/L (98-107) Carbon Dioxide Level 26 mmol/L (21-32) Anion Gap 14 (6-14) Blood Urea Nitrogen 5 mg/dL (7-20) Creatinine 0.7 mg/dL (0.6-1.0) Estimated GFR (Cockcroft-Gault) 94.2 BUN/Creatinine Ratio 7 (6-20) Glucose Level 153 mg/dL (70-99) Calcium Level 8.5 mg/dL (8.5-10.1) Total Bilirubin 0.6 mg/dL (0.2-1.0) Aspartate Amino Transf (AST/SGOT) 12 U/L (15-37) Alanine Aminotransferase (ALT/SGPT) 18 U/L (14-59) Alkaline Phosphatase 89 U/L (46-116) Total Protein 6.5 g/dL (6.4-8.2) Albumin 3.0 g/dL (3.4-5.0) Albumin/Globulin Ratio 0.9 (1.0-1.7) Glucose (Fingerstick) 126 mg/dL (70-99) 121 mg/dL (70-99) 108 mg/dL (70-99) Test 12/04/19 04:30 12/04/19 07:19 Sodium Level 139 mmol/L (136-145) Potassium Level 3.7 mmol/L (3.5-5.1) Chloride Level 101 mmol/L (98-107) Carbon Dioxide Level 27 mmol/L (21-32) Anion Gap 11 (6-14) Blood Urea Nitrogen 4 mg/dL (7-20) Creatinine 0.6 mg/dL (0.6-1.0) Estimated GFR (Cockcroft-Gault) 112.5 BUN/Creatinine Ratio 7 (6-20) Glucose Level 101 mg/dL (70-99) Calcium Level 8.8 mg/dL (8.5-10.1) Total Bilirubin 0.5 mg/dL (0.2-1.0) Aspartate Amino Transf (AST/SGOT) 12 U/L (15-37) Alanine Aminotransferase (ALT/SGPT) 17 U/L (14-59) Alkaline Phosphatase 80 U/L (46-116) Total Protein 7.0 g/dL (6.4-8.2) Albumin 2.8 g/dL (3.4-5.0) Albumin/Globulin Ratio 0.7 (1.0-1.7) Glucose (Fingerstick) 110 mg/dL (70-99) Laboratory Tests Test 12/03/19 10:00 12/03/19 11:25 12/03/19 17:01 12/03/19 20:45 Sodium Level 140 mmol/L (136-145) Potassium Level 3.7 mmol/L (3.5-5.1) Chloride Level 100 mmol/L (98-107) Carbon Dioxide Level 26 mmol/L (21-32) Anion Gap 14 (6-14) Blood Urea Nitrogen 5 mg/dL (7-20) Creatinine 0.7 mg/dL (0.6-1.0) Estimated GFR (Cockcroft-Gault) 94.2 BUN/Creatinine Ratio 7 (6-20) Glucose Level 153 mg/dL (70-99) Calcium Level 8.5 mg/dL (8.5-10.1) Total Bilirubin 0.6 mg/dL (0.2-1.0) Aspartate Amino Transf (AST/SGOT) 12 U/L (15-37) Alanine Aminotransferase (ALT/SGPT) 18 U/L (14-59) Alkaline Phosphatase 89 U/L (46-116) Total Protein 6.5 g/dL (6.4-8.2) Albumin 3.0 g/dL (3.4-5.0) Albumin/Globulin Ratio 0.9 (1.0-1.7) Glucose (Fingerstick) 126 mg/dL (70-99) 121 mg/dL (70-99) 108 mg/dL (70-99) Test 12/04/19 04:30 12/04/19 07:19 Sodium Level 139 mmol/L (136-145) Potassium Level 3.7 mmol/L (3.5-5.1) Chloride Level 101 mmol/L (98-107) Carbon Dioxide Level 27 mmol/L (21-32) Anion Gap 11 (6-14) Blood Urea Nitrogen 4 mg/dL (7-20) Creatinine 0.6 mg/dL (0.6-1.0) Estimated GFR (Cockcroft-Gault) 112.5 BUN/Creatinine Ratio 7 (6-20) Glucose Level 101 mg/dL (70-99) Calcium Level 8.8 mg/dL (8.5-10.1) Total Bilirubin 0.5 mg/dL (0.2-1.0) Aspartate Amino Transf (AST/SGOT) 12 U/L (15-37) Alanine Aminotransferase (ALT/SGPT) 17 U/L (14-59) Alkaline Phosphatase 80 U/L (46-116) Total Protein 7.0 g/dL (6.4-8.2) Albumin 2.8 g/dL (3.4-5.0) Albumin/Globulin Ratio 0.7 (1.0-1.7) Glucose (Fingerstick) 110 mg/dL (70-99) Microbiology 12/01/19 Urine Culture - Final, Complete 12/01/19 Urine Culture Result 1 (VIDAL) - Final, Complete Medications Current Medications Ondansetron HCl (Zofran) 4 mg 1X ONCE IV Last administered on 12/01/19at 21:39; Start 12/01/19 at 21:00; Stop 12/01/19 at 21:02; Status DC Morphine Sulfate (Morphine Sulfate) 5 mg 1X STAT IV Last administered on 12/01/19at 21:40; Start 12/01/19 at 21:00; Stop 12/01/19 at 21:02; Status DC Sodium Chloride 1,000 ml @ 1,000 mls/hr 1X ONCE IV Last administered on 12/01/19at 21:39; Start 12/01/19 at 21:00; Stop 12/01/19 at 21:59; Status DC Fentanyl Citrate (Fentanyl 2ml Vial) 75 mcg 1X ONCE IV Last administered on 12/01/19at 22:38; Start 12/01/19 at 22:30; Stop 12/01/19 at 22:31; Status DC Fentanyl Citrate (Fentanyl 2ml Vial) 75 mcg 1X ONCE IV Last administered on 12/02/19at 00:04; Start 12/02/19 at 00:00; Stop 12/02/19 at 00:01; Status DC Iohexol (Omnipaque 300 Mg/ml) 75 ml 1X ONCE IV Last administered on 12/02/19at 00:14; Start 12/02/19 at 00:15; Stop 12/02/19 at 00:16; Status DC Info (CONTRAST GIVEN -- Rx MONITORING) 1 each PRN DAILY PRN MC SEE COMMENTS; Start 12/02/19 at 00:15; Stop 12/04/19 at 00:14; Status DC Morphine Sulfate (Morphine Sulfate) 2 mg PRN Q2HR PRN IV PAIN Last administered on 12/02/19at 03:56; Start 12/02/19 at 02:00; Stop 12/02/19 at 04:16; Status DC Ondansetron HCl (Zofran) 4 mg PRN Q6HRS PRN IVP NAUSEA/VOMITING Last administered on 12/04/19at 08:28; Start 12/02/19 at 02:00 Ciprofloxacin/ Dextrose 200 ml @ 200 mls/hr 1X ONCE IV Last administered on 12/02/19at 03:25; Start 12/02/19 at 02:00; Stop 12/02/19 at 02:59; Status DC Metronidazole 100 ml @ 100 mls/hr 1X ONCE IV Last administered on 12/02/19at 06:14; Start 12/02/19 at 02:00; Stop 12/02/19 at 02:59; Status DC Fentanyl Citrate (Fentanyl 2ml Vial) 75 mcg PRN Q4HRS PRN IVP PAIN Last administered on 12/02/19at 06:14; Start 12/02/19 at 04:15; Stop 12/02/19 at 09:24; Status DC Docusate Sodium (Colace) 100 mg BID PO Last administered on 12/04/19 08:29; Start 12/02/19 at 09:00 Nicotine (Nicoderm Cq 14mg) 1 patch DAILY TD Last administered on 12/04/19at 08:29; Start 12/02/19 at 09:00 Ondansetron HCl (Zofran Odt) 4 mg PRN Q8HRS PRN PO n/v Last administered on 12/03/19at 09:12; Start 12/02/19 at 08:45 Oxycodone/ Acetaminophen (Percocet 5/325) 1 tab PRN Q6HRS PRN PO PAIN; Start 12/02/19 at 08:45; Stop 12/02/19 at 08:40; Status DC Dicyclomine HCl (Bentyl) 20 mg TID PO Last administered on 12/04/19at 08:29; Start 12/02/19 at 09:00 Insulin Human Lispro (HumaLOG) 0-9 UNITS TIDACHC SQ ; Start 12/02/19 at 11:30 Dextrose (Dextrose 50%-Water Syringe) 12.5 gm PRN Q15MIN PRN IV SEE COMMENTS; Start 12/02/19 at 08:45 Dextrose (Iv Dextrose 5%) 250 ml PRN Q15MIN PRN IV SEE COMMENTS; Start 12/02/19 at 08:45 Tramadol HCl (Ultram) 50 mg PRN Q6HRS PRN PO PAIN Last administered on 12/03/19at 18:20; Start 12/02/19 at 08:45 Ketorolac Tromethamine (Toradol 30mg Vial) 30 mg PRN Q6HRS PRN IVP PAIN Last administered on 12/03/19at 01:19; Start 12/02/19 at 09:30; Stop 12/03/19 at 17:32; Status DC Hydromorphone HCl (Dilaudid) 0.4 mg PRN Q4HRS PRN IVP PAIN Last administered on 12/04/19at 08:28; Start 12/02/19 at 09:30 Pantoprazole Sodium (PROTONIX VIAL for IV PUSH) 40 mg DAILYAC IVP Last administered on 12/04/19at 08:28; Start 12/02/19 at 09:45 Propofol 20 ml @ As Directed STK-MED ONCE IV ; Start 12/02/19 at 13:20; Stop 12/02/19 at 13:20; Status DC Lidocaine HCl (Lidocaine Pf 2% Vial) 5 ml STK-MED ONCE .ROUTE ; Start 12/02/19 at 13:20; Stop 12/02/19 at 13:20; Status DC Ringer's Solution 1,000 ml @ 100 mls/hr Q10H IV Last administered on 12/03/19at 11:51; Start 12/02/19 at 14:30 Active Scripts Active Keflex (Cephalexin) 500 Mg Capsule 1 Cap PO BID 7 Days Metformin Hcl 500 Mg Tablet 500 Mg PO BIDWMEALS Tessalon Perle (Benzonatate) 100 Mg Capsule 1 Cap PO TID Medrol (Methylprednisolone) 4 Mg Tab.ds.pk 1 Pkg PO UD Prednisone 50 Mg Tablet 1 Tab PO DAILY Tessalon Perle (Benzonatate) 100 Mg Capsule 1 Cap PO TID Proventil Hfa Inhaler (Albuterol Sulfate) 6.7 Gm Hfa.aer.ad 1 Puff IH PRN Q4HRS PRN Zofran Odt (Ondansetron) 4 Mg Tab.rapdis 1 Tab SL Q8HRS Dicyclomine Hcl 20 Mg Tablet 1 Tab PO TID Prednisone 50 Mg Tablet 1 Tab PO DAILY Tessalon Perle (Benzonatate) 100 Mg Capsule 1 Cap PO TID Ventolin Hfa Inhaler (Albuterol Sulfate) 18 Gm Hfa.aer.ad 2 Puff INH Q4HRS Ambien (Zolpidem Tartrate) 5 Mg Tablet 1 Tab PO QHS NICODERM CQ 14mg (Nicotine) 1 Each Patch.td24 1 Patch TP DAILY Percocet 5-325 Mg Tablet (Oxycodone/Acetaminophen) 1 Each Tablet 1 Tab PO PRN Q6HRS PRN Reglan (Metoclopramide Hcl) 10 Mg Tablet 1 Tab PO TID Reported Docusate Sodium 100 Mg Capsule 100 Mg PO BID Vitals/I & O Vital Sign - Last 24 Hours 12/03/19 12/03/19 12/03/19 12/03/19 10:09 11:03 12:21 13:36 Temp 99.6 99.6 Pulse 98 Resp 18 B/P (MAP) 134/89 (104) Pulse Ox 95 94 94 94 O2 Delivery Room Air Room Air Room Air Room Air O2 Flow Rate 2.0 2.0 12/03/19 12/03/19 12/03/19 12/03/19 15:04 16:45 17:35 18:20 Temp 99.2 99.2 Pulse 86 Resp 20 B/P (MAP) 133/79 (97) Pulse Ox 96 96 96 96 O2 Delivery Room Air Room Air Room Air Room Air O2 Flow Rate 2.0 2.0 2.0 12/03/19 12/03/19 12/03/19 12/03/19 19:00 20:00 21:33 21:37 Temp 99.5 99.5 Pulse 104 Resp 19 B/P (MAP) 144/101 (115) Pulse Ox 95 95 O2 Delivery Room Air Room Air Room Air Room Air O2 Flow Rate 2.0 12/03/19 12/03/19 12/04/19 12/04/19 22:07 23:00 02:38 03:00 Temp 98.7 98.5 98.7 98.5 Pulse 99 83 Resp 18 18 B/P (MAP) 136/97 (110) 127/83 (98) Pulse Ox 96 92 O2 Delivery Room Air Room Air Room Air Room Air 12/04/19 12/04/19 12/04/19 03:10 07:00 08:39 Temp 98.1 98.1 Pulse 92 Resp 18 B/P (MAP) 130/85 (100) Pulse Ox 95 O2 Delivery Room Air Room Air Room Air Intake and Output 12/03/19 12/03/19 12/04/19 15:00 23:00 07:00 Intake Total 120 ml 120 ml 300 ml Balance 120 ml 120 ml 300 ml Hemodynamically unstable?: No Is patient in severe pain?: Yes Is NPO status required?: No GERTRUDIS GALICIA MD Dec 04, 2019 09:37
[2019-12-04] MEDS: traMADol 50 MG TABLET PO PRN ×2 (10:42→19:23)
[2019-12-04] MEDS ORDERED: TRAM50TA PO (10:44)
[2019-12-04] MEDS ORDERED: OMEG1CAP2 PO (10:44)
[2019-12-04 11:00] VITALS: BP 110/60
[2019-12-04] MEDS ORDERED: IV RINGERS,LACTATED 500ML 500 ML IV ONE (11:00)
[2019-12-04 15:00] VITALS: BP 129/90
[2019-12-04] MEDS: ONDANSETRON ODT 4 MG TAB.RAPDIS. PO PRN (19:22)
--- NOTE | 2019-12-04 20:03 | NUR ---
Patient discharged to home. Discharge instructions, medications, and follow up appointments discussed with patient. Patient verbalized understanding. Discharge packet given to patient. Prescriptions sent to pharmacy. VENKAT Cummins called into pharmacy. IV discontinued. All belongings with patient. Family here with patient. Patient assisted out in wheelchair by staff at this time.
--- NOTE | 2019-12-06 15:52 | PATHOLOGY ---
[facility] Accession Number: [id number] . 01 Material submitted: . stomach - ANTRAL BIOPSY . 01 Clinical history: . Abdominal pain . 02 Diagnosis: Gastric biopsies, antrum: - Mild chronic gastritis. . (JPM:gera; 12/06/2019) S 12/06/2019 0946 Local . 02 Comment: Sections of the gastric biopsy reveal segments of focally tangentially oriented gastric body mucosa showing congestion and mild chronic inflammation. A properly controlled immunoperoxidase stain for Helicobacter is negative for Helicobacter organisms. (JPM:gera; 12/06/2019) . . Special stain performed: Immunoperoxidase stain for Helicobacter on A1 . 02 Electronically signed: . Chang Frey MD, Pathologist NPI- [id number] . 01 Gross description: . The specimen is received in formalin, labeled "Ruth Ann Alonso, antral biopsy". Received are two segments of pale vigil soft tissue ranging in size from 0.3 to 0.9 cm in maximum dimensions. The specimen is submitted entirely in cassette A1. ([facility]; 12/03/2019) QAC/QAC 12/03/2019 1609 Local . 02 Pathologist provided ICD-10: K29.50 . 02 CPT . 213874, [id number] Specimen Comment: A courtesy copy of this report has been sent to [phone] Specimen Comment: [id number], Specimen Comment: Report sent to ,DR SIMON / DR FRANCO Performed at: 01 [facility] [address], [place], [place] [id number] MD Melvin Kohler MD Phone: [phone] Performed at: 02 [facility] [address], [place] [id number] MD hCang Frey MD Phone: [phone]
== END 2019-12-04 20:06 | disposition home or self-care (01) | DRG 391 ==
LOC: ER 19:27 → 6 SOUTH 12-02 01:00
PROVIDERS: ADMIT Internal Medicine; ATTEND Internal Medicine
PROC: 0DB78ZX Excision of Stomach, Pylorus, Via Natural or Artificial Opening Endoscopic, Diagnostic (ICD-10-PCS; principal; 2019-12-02 15:00)
DX: K21.0 Gastro-esophageal reflux disease with esophagitis (principal); K85.90 Acute pancreatitis without necrosis or infection, unspecified; E44.1 Mild protein-calorie malnutrition; K29.80 Duodenitis without bleeding; E78.1 Pure hyperglyceridemia; K76.0 Fatty (change of) liver, not elsewhere classified; D63.8 Anemia in other chronic diseases classified elsewhere; E78.00 Pure hypercholesterolemia, unspecified; M79.7 Fibromyalgia; E27.9 Disorder of adrenal gland, unspecified; E28.2 Polycystic ovarian syndrome; G89.29 Other chronic pain; J45.909 Unspecified asthma, uncomplicated; F17.210 Nicotine dependence, cigarettes, uncomplicated; Z68.39 Body mass index [BMI] 39.0-39.9, adult; Z86.32 Personal history of gestational diabetes; Z91.048 Other nonmedicinal substance allergy status; Z91.040 Latex allergy status; Z88.8 Allergy status to other drugs, medicaments and biological substances; Z83.3 Family history of diabetes mellitus
CPT/HCPCS: 36415; 74177; 76700; 80053; 80061; 81001; 81025; 82962; 83036; 83690; 84443; 85025; 85651; 86140; 87086; 96361; 96365; 96375; C9113; J0744; J1170; J1815; J1885; J2001; J2270; J2405; J2704; J3010; J3490; J7030; J7120; Q0162; Q9967; 99285-25; G0378

== ENCOUNTER 2020-05-09 19:22 | Emergency (ER) | payer OTHER, MEDICAID ==
[~2020-05-09] VITALS: Ht 162.6 cm; Wt 100.0 kg
[~2020-05-09 19:22] MED LIST changes: +CEPH-264 PO; +OMEG1CAP2 PO; +TRAM50TA PO
[2020-05-09 20:02] LABS: BILIRUBIN,URINE NEGATIVE (NEG); CLARITY,URINE CLEAR; COLOR,URINE YELLOW; NITRITE,URINE NEGATIVE (NEG); PH,URINE 5.5 (<5.0-8.0); PROTEIN,URINE NEGATIVE (NEG-TRACE); UROBILINOGEN,URINE 0.2 mg/dL (0.2 mg/dL)
[2020-05-09 20:13] LABS: AMORPHOUS SEDIMENT,UR PRESENT /HPF; BACTERIA,URINE FEW /HPF (0-FEW); RBC,URINE 0 /HPF (0-2); SQUAMOUS EPITHELIAL CELL,UR MANY /LPF; WBC,URINE 0 /HPF (0-4)
[2020-05-09] MEDS ORDERED: KETOROLAC 30 MG/ML VIAL. IVP ONE (21:30)
[2020-05-09] MEDS ORDERED: ONDANSETRON PF 4 MG/2 ML VIAL. IVP ONE (21:30)
[2020-05-09 21:43] LABS: CALCIUM 9.1 mg/dL (8.5-10.1); CREATININE 0.9 mg/dL (0.6-1.0); GFR 70.5; POTASSIUM 3.6 mmol/L (3.5-5.1)
[2020-05-09 21:49] LABS: ALBUMIN 3.8 g/dL (3.4-5.0); ALBUMIN/GLOBULIN RATIO 1.1 (1.0-1.7); TOTAL BILIRUBIN 0.1 mg/dL (0.2-1.0); TOTAL PROTEIN 7.4 g/dL (6.4-8.2)
[2020-05-09 21:51] LABS: BASO % 0 % (0-3); EOS # 0.2 x10^3/uL (0.0-0.7); EOS % 3 % (0-3); HEMATOCRIT 38.8 % (36.0-47.0); HEMOGLOBIN 13.5 g/dL (12.0-15.5); LYMPH # 3.2 x10^3/uL (1.0-4.8); LYMPH % 38 % (24-48); MEAN CORPUSCULAR HEMOGLOBIN 31 pg (25-35); MEAN CORPUSCULAR HGB CONC 35 g/dL (31-37); MEAN CORPUSCULAR VOLUME 90 fL (79-100); MONO # 0.7 x10^3/uL (0.0-1.1); MONO % 8 % (0-9); NEUT # 4.2 x10^3/uL (1.8-7.7); NEUT % 51 % (31-73); PLATELET COUNT 163 x10^3/uL (140-400); RED BLOOD COUNT 4.29 x10^6/uL (3.50-5.40); RED CELL DISTRIBUTION WIDTH 13.8 % (11.5-14.5); WHITE BLOOD COUNT 8.3 x10^3/uL (4.0-11.0)
[2020-05-09 22:38] LABS: PLT ESTIMATE ADEQUATE (ADEQUATE)
[2020-05-09] MEDS ORDERED: MORPHINE SULFATE 4 MG/ML VIAL. IV ONE (22:45)
[2020-05-09 23:02] LABS: U PREG PATIENT NEGATIVE (NEG)
[2020-05-09] MEDS ORDERED: TRAM-48 PO (23:25)
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
--- NOTE | 2020-05-09 23:32 | RAD ---
Exam: CT of abdomen and pelvis without contrast INDICATION: Flank pain TECHNIQUE: Sequential axial images through the abdomen and pelvis obtained without IV contrast. Sagittal and coronal reformatted images were reconstructed from the axial data and reviewed. Comparisons: 12/01/2019 FINDINGS: Size is normal. No pericardial effusion. Visualized lung bases are clear. No pleural effusion. Evaluation of solid organs is limited secondary to noncontrast technique. There is diffuse hepatic steatosis. Spleen, pancreas, gallbladder and adrenals are unremarkable. No perinephric inflammation or hydronephrosis. No renal or ureteral calculi are identified. Bladder is decompressed not well evaluated. Uterus is nonenlarged. No abnormal adnexal mass. Scattered diverticula noted in the descending and sigmoid colon without evidence of acute diverticulitis. Remainder of the large and small bowel are unremarkable. Appendix is nonidentified. No free intra-abdominal air or fluid. No obstruction. Abdominal aorta has a normal course and caliber. No enlarged abdominal lymph nodes are identified. No suspicious osseous lesions or acute fractures. IMPRESSION: 1. No renal or ureteral calculi. No evidence for obstructive uropathy. 2. Diverticulosis without evidence of acute diverticulitis. Exposure: One or more of the following in the visualized dose reduction techniques were utilized for this examination: 1. Automated exposure control 2. Adjustment of the MA and/or KV according to patient size 3. Use of iterative of reconstructive technique Electronically signed by: Vaibhav Garcia MD (05/09/2020 11:29 PM) [id number]
[2020-05-09 23:54] VITALS: BP 140/79
== END 2020-05-09 23:55 | disposition home or self-care (01) ==
LOC: ER 19:22
DX: R10.13 Epigastric pain (principal); R11.2 Nausea with vomiting, unspecified; J45.909 Unspecified asthma, uncomplicated; M79.7 Fibromyalgia; E78.00 Pure hypercholesterolemia, unspecified; G89.29 Other chronic pain; Z98.890 Other specified postprocedural states; Z87.891 Personal history of nicotine dependence; Z87.19 Personal history of other diseases of the digestive system; Z91.040 Latex allergy status; Z88.8 Allergy status to other drugs, medicaments and biological substances; Z79.899 Other long term (current) drug therapy
CPT/HCPCS: 36415; 74176; 80053; 81001; 81025; 83690; 85025; 96374; 96375; 99285; J1885; J2270; J2405

== ENCOUNTER 2020-07-21 18:46 | Emergency (ER) | payer OTHER, MEDICAID ==
[~2020-07-21] VITALS: Ht 162.6 cm; Wt 92.0 kg
[~2020-07-21 18:46] MED LIST changes: +TRAM-48 PO
[2020-07-21] MEDS ORDERED: predniSONE 20 MG TABLET PO ONE (19:30)
[2020-07-21] MEDS ORDERED: MORPHINE SULFATE 10 MG/ML VIAL. IM ONE (19:30)
[2020-07-21] MEDS ORDERED: diazePAM 5 MG TABLET PO ONE (19:30)
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
[2020-07-21] MEDS ORDERED: HYDROmorphone 2 MG/ML VIAL IM ONE (21:00)
[2020-07-21] MEDS ORDERED: DIAZ5TAB PO (21:06)
[2020-07-21] MEDS ORDERED: HYDR-3164 PO (21:06)
[2020-07-21] MEDS ORDERED: METH4TAB2 PO (21:06)
[2020-07-21 21:11] VITALS: BP 116/74
== END 2020-07-21 21:11 | disposition home or self-care (01) ==
LOC: ER 18:46
DX: S13.9XXA Sprain of joints and ligaments of unspecified parts of neck, initial encounter (principal); S23.9XXA Sprain of unspecified parts of thorax, initial encounter; M54.5 Low back pain; G89.29 Other chronic pain; E78.00 Pure hypercholesterolemia, unspecified; J45.909 Unspecified asthma, uncomplicated; I70.0 Atherosclerosis of aorta; Z87.891 Personal history of nicotine dependence; Z88.8 Allergy status to other drugs, medicaments and biological substances; Z91.040 Latex allergy status; Y08.89XA Assault by other specified means, initial encounter; Y93.89 Activity, other specified; Y92.89 Other specified places as the place of occurrence of the external cause; Y99.8 Other external cause status
CPT/HCPCS: 72125; 72128; 72131; 81025; 96372; 99285; J1170; J2270; J7512

== ENCOUNTER 2020-07-23 13:54 | Inpatient (IN) | payer OTHER, MEDICAID ==
[~2020-07-23] VITALS: Ht 160 cm; Wt 91.2 kg
[~2020-07-23 13:54] MED LIST changes: +DIAZ5TAB PO
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
[2020-07-23] MEDS ORDERED: methylPREDNISolone SOD SUCC PF 125 MG/2 ML VIAL. IV ONE (15:00)
[2020-07-23] MEDS ORDERED: KETOROLAC 30 MG/ML VIAL. IVP ONE (15:00)
[2020-07-23] MEDS ORDERED: ORPHENADRINE CITRATE 60 MG/2 ML VIAL. IM ONE (15:00)
[2020-07-23] MEDS ORDERED: MORPHINE SULFATE 4 MG/ML VIAL. IV ONE (15:00)
--- NOTE | 2020-07-23 15:47 | RAD ---
EXAM: AP pelvis, AP and lateral views left hip DATE: 07/23/2020 12:00 AM INDICATION: Reason: pain / Spl. Instructions: / History: COMPARISON: No Prior FINDINGS/ IMPRESSION: No evidence of acute fracture or dislocation. Joint spaces are preserved without significant degenerative/proliferative change. Electronically signed by: Valentín Monaco MD (07/23/2020 3:44 PM) [id number]
[2020-07-23 16:28] LABS: BILIRUBIN,URINE SMALL (NEG); CLARITY,URINE CLOUDY; NITRITE,URINE NEGATIVE (NEG); PROTEIN,URINE 100 mg/dL (NEG-TRACE)
[2020-07-23] MEDS ORDERED: fentaNYL PF VIAL 100 MCG/2 ML VIAL IVP ONE (16:30)
[2020-07-23 16:38] LABS: COLOR,URINE BROWN
[2020-07-23 16:39] LABS: SQUAMOUS EPITHELIAL CELL,UR MOD /LPF
[2020-07-23 16:40] LABS: BACTERIA,URINE MODERATE /HPF (0-FEW); RBC,URINE TNTC /HPF (0-2)
[2020-07-23 17:03] LABS: BASO % 1 % (0-3); EOS % 0 % (0-3); HEMOGLOBIN 13.2 g/dL (12.0-15.5); LYMPH % 12 % (24-48); MEAN CORPUSCULAR HEMOGLOBIN 31 pg (25-35); MEAN CORPUSCULAR HGB CONC 35 g/dL (31-37); MEAN CORPUSCULAR VOLUME 91 fL (79-100); MONO # 0.2 x10^3/uL (0.0-1.1); MONO % 3 % (0-9); NEUT # 6.9 x10^3/uL (1.8-7.7); NEUT % 84 % (31-73); PLATELET COUNT 161 x10^3/uL (140-400); RED BLOOD COUNT 4.19 x10^6/uL (3.50-5.40); RED CELL DISTRIBUTION WIDTH 13.6 % (11.5-14.5); WHITE BLOOD COUNT 8.2 x10^3/uL (4.0-11.0)
[2020-07-23 17:15] LABS: CALCIUM 9.3 mg/dL (8.5-10.1); CREATININE 0.8 mg/dL (0.6-1.0); GFR 80.7; POTASSIUM 4.2 mmol/L (3.5-5.1)
[2020-07-23] MEDS ORDERED: IV NORMAL SALINE 1000ML BAG 1,000 ML IV ONE (17:15)
[2020-07-23] MEDS ORDERED: KETAMINE HCL IN NACL, ISO-OSM 50 MG/5 ML SYRINGE IV ONE (17:15)
[2020-07-23 17:21] LABS: ALBUMIN 3.8 g/dL (3.4-5.0); ALBUMIN/GLOBULIN RATIO 1.1 (1.0-1.7); TOTAL BILIRUBIN 0.6 mg/dL (0.2-1.0); TOTAL PROTEIN 7.2 g/dL (6.4-8.2)
[2020-07-23] MEDS ORDERED: NORMAL SALINE IV ONE (18:15)
[2020-07-23] MEDS ORDERED: KETAMINE HCL IV ONE (18:15)
[2020-07-23 18:18] LABS: PLT ESTIMATE ADEQUATE (ADEQUATE)
--- NOTE | 2020-07-23 18:31 | RAD ---
Examination: CT THORACIC SPINE WO CONTRAST, CT CERVICAL SPINE WO CONTRAST, CT LUMBAR SPINE WO CONTRAST History: BACK PAIN S/P INJURY FRIDAY / Comparison/Correlation: 07/21/2020 CT cervical, thoracic, and lumbar spine Findings: Axial images of the cervical, thoracic, and lumbar spine were obtained. Sagittal and coronal reformatted images were provided. Cervical spine Alignment is unremarkable. The disc spaces are adequate. Neural foramina are patent. No fracture or bone destruction. Prevertebral soft tissues are unremarkable. Thoracic spine Alignment is normal. The disc spaces are adequate. Neural foramina are widely patent. Vertebral body heights are adequate. Incidental note is made of subcarinal lymph node which is partially calcified is present. Lumbar spine Alignment is normal. Concentric disc bulge at L4-5 present. Mild L5-S1 disc space narrowing is present. Mild L4-5 disc space narrowing also is present. No fracture or bone destruction. Spinal canal stenosis is significant at L3-4, L4-5, and L5-S1 with concentric disc bulges present at these levels. Impression: Lumbar spine concentric disc bulges and spinal canal stenoses. No fracture or malalignment involving the cervical, thoracic, lumbar spine. Electronically signed by: Corby Nevarez MD (07/23/2020 6:28 PM) [facility]
[2020-07-23] MEDS ORDERED: ALBUTEROL SULFATE 2.5 MG/3 ML NEBU. NEB PRN (19:30)
[2020-07-23] MEDS ORDERED: diphenhydrAMINE 50 MG/ML VIAL IVP PRN (19:30)
[2020-07-23] MEDS ORDERED: cloNIDine HCL 0.1 MG TABLET PO PRN (19:30)
[2020-07-23] MEDS ORDERED: guaiFENesin ORAL 200 MG/10 ML LIQUID. PO PRN (19:30)
[2020-07-23] MEDS ORDERED: DOCUSATE SODIUM 100 MG CAPSULE. PO PRN (19:30)
[2020-07-23] MEDS ORDERED: ACETAMINOPHEN 325 MG TABLET. PO PRN (19:30)
[2020-07-23] MEDS ORDERED: ONDANSETRON PF 4 MG/2 ML VIAL. IV PRN ×2 (19:30→19:45)
[2020-07-23] MEDS ORDERED: MAG HYDROX/ALUMINUM HYD/SIMETH 30 ML ORAL.SUSP PO PRN (19:30)
[2020-07-23 20:30] VITALS: BP 113/64
[2020-07-23] MEDS: MORPHINE SULFATE 2 MG/ML VIAL. IV PRN ×2 (21:13→23:49)
[2020-07-23] MEDS: ZOLPIDEM 5 MG TABLET. PO PRN (21:13)
[2020-07-23] MEDS: tiZANidine 4 MG TABLET. PO PRN (21:13)
[2020-07-23] MEDS: LORazepam 0.5 MG TABLET PO PRN (21:13)
[2020-07-23] MEDS: IV NORMAL SALINE 1000ML BAG 1,000 ML IV SCH (21:14)
[2020-07-23] MEDS ORDERED: ATOR20TA58 PO (21:42)
[2020-07-23] MEDS ORDERED: FLUO40CA2 PO (21:42)
[2020-07-23] MEDS ORDERED: OMEP40CA45 PO (21:42)
[2020-07-23] MEDS ORDERED: ACET650T26 PO (21:42)
[2020-07-23] MEDS ORDERED: FENO145T3 PO (21:42)
[2020-07-23] MEDS ORDERED: METH500T7 PO (21:42)
[2020-07-23 23:00] VITALS: BP_SYST 103; BP_SYST 131; BP_DIAS 59
[2020-07-24] MEDS: KETOROLAC 15 MG/ML VIAL. IVP PRN ×3 (00:57→18:01)
[2020-07-24] MEDS: MORPHINE SULFATE 2 MG/ML VIAL. IV PRN ×10 (02:50→23:06)
[2020-07-24 03:00] VITALS: BP 98/55
[2020-07-24] MEDS: tiZANidine 4 MG TABLET. PO PRN ×3 (05:10→23:04)
[2020-07-24] MEDS: LORazepam 0.5 MG TABLET PO PRN ×4 (05:10→23:04)
[2020-07-24] MEDS: IV NORMAL SALINE 1000ML BAG 1,000 ML IV SCH ×2 (05:10→16:10)
[2020-07-24 07:00] VITALS: BP 116/70
[2020-07-24] MEDS ORDERED: predniSONE 20 MG TABLET PO SCH (08:00)
[2020-07-24] MEDS: DICLOFENAC SODIUM 1% TOPICAL GEL 100GM TUBE. TP SCH ×2 (08:12→21:01)
[2020-07-24] MEDS: LIDOCAINE (700MG/PATCH) PATCH. TD SCH (08:13)
[2020-07-24] MEDS ORDERED: FLU VACC QS 2020-21(6MOS+)/PF 0.5 ML SYRINGE. VAX IM ONE (09:00)
--- NOTE | 2020-07-24 09:47 | NUR ---
SW following. Discussed with RN, pt from home, room air, regular diet. No consults as of yet. SW will continue to follow.
[2020-07-24] MEDS: methylPREDNISolone 4 MG TABLET. PO SCH ×4 (10:46→20:59)
[2020-07-24 11:00] VITALS: BP 126/80
--- NOTE | 2020-07-24 12:50 | PDOC ---
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 Vitals/I&O Vitals/I&O: Vital Signs Date Time Temp Pulse Resp B/P (MAP) Pulse Ox O2 Delivery O2 Flow Rate FiO2 07/24/20 12:11 Room Air 07/24/20 11:00 98.1 69 18 126/80 (95) 97 98.1 I & O 07/23/20 07/23/20 07/24/20 15:00 23:00 07:00 Intake Total 250.368 ml 60 ml Balance 250.368 ml 60 ml Physical Exam General: Alert, Oriented X3, Cooperative, Other (Patient is in pain) Heart: Regular rate, Normal S1, Normal S2 Lungs: Clear Abdomen: Normal bowel sounds, Soft Extremities: No clubbing, No cyanosis, Other Skin: No rashes, No breakdown Labs Labs: Laboratory Tests Test 07/23/20 15:55 07/23/20 16:05 07/23/20 16:35 Urine Collection Type Unknown Urine Color Brown Urine Clarity Cloudy Urine pH 6.0 (<5.0-8.0) Urine Specific Clever >=1.030 (1.000-1.030) Urine Protein 100 mg/dL (NEG-TRACE) Urine Glucose (UA) Negative mg/dL (NEG) Urine Ketones (Stick) Trace mg/dL (NEG) Urine Blood Large (NEG) Urine Nitrite Negative (NEG) Urine Bilirubin Small (NEG) Urine Urobilinogen Dipstick 1.0 mg/dL (0.2 mg/dL) Urine Leukocyte Esterase Moderate (NEG) Urine RBC Tntc /HPF (0-2) Urine WBC 11-20 /HPF (0-4) Urine Squamous Epithelial Cells Mod /LPF Urine Bacteria Moderate /HPF (0-FEW) Urine Mucus Mod /LPF Bedside Urine HCG, Qualitative Hcg negative (Negative) White Blood Count 8.2 x10^3/uL (4.0-11.0) Red Blood Count 4.19 x10^6/uL (3.50-5.40) Hemoglobin 13.2 g/dL (12.0-15.5) Hematocrit 38.0 % (36.0-47.0) Mean Corpuscular Volume 91 fL (79-100) Mean Corpuscular Hemoglobin 31 pg (25-35) Mean Corpuscular Hemoglobin Concent 35 g/dL (31-37) Red Cell Distribution Width 13.6 % (11.5-14.5) Platelet Count 161 x10^3/uL (140-400) Neutrophils (%) (Auto) 84 % (31-73) Lymphocytes (%) (Auto) 12 % (24-48) Monocytes (%) (Auto) 3 % (0-9) Eosinophils (%) (Auto) 0 % (0-3) Basophils (%) (Auto) 1 % (0-3) Neutrophils # (Auto) 6.9 x10^3/uL (1.8-7.7) Lymphocytes # (Auto) 1.0 x10^3/uL (1.0-4.8) Monocytes # (Auto) 0.2 x10^3/uL (0.0-1.1) Eosinophils # (Auto) 0.0 x10^3/uL (0.0-0.7) Basophils # (Auto) 0.0 x10^3/uL (0.0-0.2) Platelet Estimate Adequate (ADEQUATE) Large Platelets Present Prothrombin Time 13.0 SEC (11.7-14.0) Prothromb Time International Ratio 1.0 (0.8-1.1) Sodium Level 139 mmol/L (136-145) Potassium Level 4.2 mmol/L (3.5-5.1) Chloride Level 104 mmol/L (98-107) Carbon Dioxide Level 28 mmol/L (21-32) Anion Gap 7 (6-14) Blood Urea Nitrogen 14 mg/dL (7-20) Creatinine 0.8 mg/dL (0.6-1.0) Estimated GFR (Cockcroft-Gault) 80.7 BUN/Creatinine Ratio 18 (6-20) Glucose Level 113 mg/dL (70-99) Calcium Level 9.3 mg/dL (8.5-10.1) Total Bilirubin 0.6 mg/dL (0.2-1.0) Aspartate Amino Transf (AST/SGOT) 19 U/L (15-37) Alanine Aminotransferase (ALT/SGPT) 25 U/L (14-59) Alkaline Phosphatase 56 U/L (46-116) Total Protein 7.2 g/dL (6.4-8.2) Albumin 3.8 g/dL (3.4-5.0) Albumin/Globulin Ratio 1.1 (1.0-1.7) Review of Systems Review of Systems: Patient is in pain No dizziness No vomiting Assessment and Plan Assessmemt and Plan Assessment: Chronic back pain L4-L5, L5-S1 concentric disc bulges L4-L5, L5-S1 disc space narrowing L3-4, L4-5 spinal canal stenosis Plan: Consult with Dr. Mcrae Continue pain meds PT/OT Trend labs Home meds DVT prophylaxis Subspecialty input appreciated Comment Review of Relevant I have reviewed the following items naty (where applicable) has been applied. Medications: Current Medications Medications (Trade) Dose Ordered Sig/Marine Route PRN Reason Start Time Stop Time Status Last Admin Dose Admin Morphine Sulfate (Morphine Sulfate) 4 mg 1X ONCE IV 07/23/20 15:00 07/23/20 15:01 DC 07/23/20 15:31 Orphenadrine Citrate (Norflex) 60 mg 1X ONCE IM 07/23/20 15:00 07/23/20 15:01 DC 07/23/20 15:32 Methylprednisolone Sodium Succinate (SOLU-Medrol 125MG VIAL) 125 mg 1X ONCE IV 07/23/20 15:00 07/23/20 15:01 DC 07/23/20 15:31 Ketorolac Tromethamine (Toradol 30mg Vial) 30 mg 1X ONCE IVP 07/23/20 15:00 07/23/20 15:01 DC 07/23/20 15:32 Fentanyl Citrate (Fentanyl 2ml Vial) 75 mcg 1X ONCE IVP 07/23/20 16:30 07/23/20 16:31 DC 07/23/20 16:43 Sodium Chloride 1,000 ml @ 1,000 mls/hr 1X ONCE IV 07/23/20 17:15 07/23/20 18:14 DC 07/23/20 18:33 Ketamine HCl 18.4 mg/Sodium Chloride 250.368 ml @ 1,502.208 mls/hr 1X ONCE IV 07/23/20 18:15 07/23/20 18:24 DC 07/23/20 18:27 Morphine Sulfate (Morphine Sulfate) 2 mg PRN Q2HR PRN IV PAIN 07/23/20 19:45 07/24/20 19:44 07/24/20 12:11 Sodium Chloride 1,000 ml @ 100 mls/hr Q10H IV 07/23/20 19:30 07/24/20 05:10 Zolpidem Tartrate (Ambien) 5 mg PRN QHS PRN PO INSOMNIA 07/23/20 19:30 07/23/20 21:13 Lorazepam (Ativan) 0.5 mg PRN Q4HRS PRN PO ANXIETY / AGITATION 07/23/20 19:30 07/24/20 05:10 Ketorolac Tromethamine (Toradol 15mg Vial) 15 mg PRN Q8HRS PRN IVP pain 07/23/20 19:30 07/28/20 19:29 07/24/20 10:11 Prednisone (Prednisone) 20 mg DAILY08 PO 07/24/20 08:00 07/24/20 11:10 DC 07/24/20 08:12 Tizanidine HCl (Zanaflex) 4 mg PRN Q8HRS PRN PO MUSCLE SPASMS 07/23/20 19:30 07/24/20 05:10 Influenza Virus Vaccine Quadrival (Fluzone Quad Syringe) 0.5 ml ONCE ONCE VAX IM 07/24/20 09:00 07/24/20 09:01 DC 07/24/20 08:22 Diclofenac Sodium (Voltaren) 1 malu BID TP 07/24/20 09:00 07/24/20 08:12 Lidocaine (Lidoderm) 1 patch DAILY TD 07/24/20 09:00 07/24/20 08:13 Methylprednisolone (Medrol) 8 mg BID PO 07/24/20 09:00 07/24/20 21:01 07/24/20 10:46 Methylprednisolone (Medrol) 4 mg BIDPCLD PO 07/24/20 12:30 07/24/20 17:31 07/24/20 12:11 Justifications for Admission Other Justification PALMA YAP III DO Jul 24, 2020 12:50
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
[2020-07-24 15:00] VITALS: BP 137/75
--- NOTE | 2020-07-24 15:03 | NUR ---
Patient called adoption worker light and I went in to find patient reporting 2 whelps on skin right above IV site. Patient stated that she has taken Levaquin in the past which was infusing at the time. Patient did state that she noticed them right after blood pressure cuff had been applied and removed for 3 pm vital sign check. I gave the patient an ice pack and told her to report if skin worsens or more whelps appear.
[2020-07-24 19:30] VITALS: BP 115/70
[2020-07-24] MEDS: PATCH REMOVAL. MC SCH (21:00)
[2020-07-24] MEDS: ZOLPIDEM 5 MG TABLET. PO PRN (23:04)
[2020-07-24 23:15] VITALS: BP 120/61
[2020-07-25] MEDS: MORPHINE SULFATE 2 MG/ML VIAL. IV PRN ×5 (01:08→12:17)
[2020-07-25] MEDS: IV NORMAL SALINE 1000ML BAG 1,000 ML IV SCH ×3 (02:06→22:02)
[2020-07-25] MEDS: KETOROLAC 15 MG/ML VIAL. IVP PRN ×3 (02:07→17:42)
[2020-07-25 03:15] VITALS: BP 137/63
[2020-07-25 07:00] VITALS: BP 126/64
[2020-07-25] MEDS: LIDOCAINE (700MG/PATCH) PATCH. TD SCH (07:26)
[2020-07-25] MEDS: DICLOFENAC SODIUM 1% TOPICAL GEL 100GM TUBE. TP SCH ×2 (07:26→21:32)
[2020-07-25] MEDS: LORazepam 0.5 MG TABLET PO PRN ×2 (07:30→22:03)
[2020-07-25] MEDS: methylPREDNISolone 4 MG TABLET. PO SCH ×3 (07:30→17:45)
[2020-07-25] MEDS: tiZANidine 4 MG TABLET. PO PRN ×2 (09:25→17:42)
[2020-07-25 11:00] VITALS: BP 136/72
--- NOTE | 2020-07-25 11:11 | NUR ---
SW following. Discussed with RN, pt from home, room air, cardiac diet. Dr. Mcrae consulted. Per RN, pt is reporting a lot of pain. SW will continue to follow.
--- NOTE | 2020-07-25 12:36 | PDOC ---
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 07/24/2020 Patient seen and examined in room Patient reports pain radiates from lower back to tip of her toe Patient reports pain that is reduced temporarily with Ketamine STEPHON SZYMANSKI porter sample case Vitals/I&O Vitals/I&O: Vital Signs Date Time Temp Pulse Resp B/P (MAP) Pulse Ox O2 Delivery O2 Flow Rate FiO2 07/25/20 12:17 20 07/25/20 11:15 95 Room Air 07/25/20 11:00 97.9 73 136/72 (93) 97.9 I & O 07/24/20 07/24/20 07/25/20 15:00 23:00 07:00 Intake Total 360 ml 580 ml 2520 ml Balance 360 ml 580 ml 2520 ml Physical Exam General: Alert, Oriented X3, Cooperative, Other (Patient is in pain) Heart: Regular rate, Normal S1, Normal S2 Lungs: Clear Abdomen: Normal bowel sounds, Soft Extremities: No clubbing, No cyanosis, Other Skin: No rashes, No breakdown Review of Systems Review of Systems: no vomiting no dizziness Assessment and Plan Assessmemt and Plan Problems Medical Problems: (1) Exacerbation of chronic back pain Status: Acute Assessment: Chronic back pain L4-L5, L5-S1 concentric disc bulges L4-L5, L5-S1 disc space narrowing L3-4, L4-5 spinal canal stenosis Plan: Awaiting Neurosurgery input Continue steroid Continue pain meds DC- PRN clonidine PT/OT Trend labs Home meds DVT prophylaxis Hope to DC soon Comment Review of Relevant I have reviewed the following items naty (where applicable) has been applied. Medications: Current Medications Medications (Trade) Dose Ordered Sig/Marine Route PRN Reason Start Time Stop Time Status Last Admin Dose Admin Miscellaneous (Lidoderm Patch Removal) 1 ea QHS MC 07/24/20 21:00 07/24/20 21:00 Methylprednisolone (Medrol) 4 mg BIDPCLD PO 07/24/20 12:30 07/24/20 17:31 DC 07/24/20 18:00 Methylprednisolone (Medrol) 4 mg TIDPC PO 07/25/20 08:30 07/25/20 17:31 07/25/20 12:15 Levofloxacin/ Dextrose 100 ml @ 100 mls/hr Q24H IV 07/24/20 13:00 07/25/20 15:00 07/24/20 14:04 Morphine Sulfate (Morphine Sulfate) 2 mg PRN Q2HR PRN IV PAIN 07/24/20 20:30 07/25/20 12:17 Justifications for Admission Other Justification PALMA YAP III DO Jul 25, 2020 12:36
[2020-07-25] MEDS: diazePAM 5 MG TABLET PO SCH ×2 (13:22→22:02)
[2020-07-25] MEDS: HYDROcodone/APAP 7.5/325MG 1 TAB TABLET PO PRN ×2 (13:22→19:48)
[2020-07-25 15:00] VITALS: BP 123/70
--- NOTE | 2020-07-25 15:08 | NUR ---
Dr. Mcrae was here for consult. switched her medications. states that the Lortab/Valium is helping with her pain better than the morphine. she is rating her pain around a "7" instead of 8-9.
--- NOTE | 2020-07-25 18:31 | NUR ---
continues to be painful. states that the Lortab only lasts about 4 hours. Toradol iv given for breakthrough
[2020-07-25 19:20] VITALS: BP 115/55
[2020-07-25] MEDS ORDERED: methylPREDNISolone 4 MG TABLET. PO SCH (21:00)
[2020-07-25] MEDS: PATCH REMOVAL. MC SCH (21:00)
[2020-07-25] MEDS: LACTOBACILLUS RHAMNOSUS GG 1 CAPSULE. PO SCH (21:29)
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
[2020-07-25] MEDS: ZOLPIDEM 5 MG TABLET. PO PRN (22:03)
[2020-07-25 22:30] VITALS: BP 112/49
[2020-07-26] MEDS: tiZANidine 4 MG TABLET. PO PRN (01:58)
[2020-07-26] MEDS: HYDROcodone/APAP 7.5/325MG 1 TAB TABLET PO PRN ×2 (01:58→07:34)
[2020-07-26] MEDS: KETOROLAC 15 MG/ML VIAL. IVP PRN ×2 (01:58→10:14)
[2020-07-26 03:10] VITALS: BP 143/77
[2020-07-26] MEDS: diazePAM 5 MG TABLET PO SCH (06:12)
[2020-07-26 07:00] VITALS: BP 131/69
[2020-07-26] MEDS: DICLOFENAC SODIUM 1% TOPICAL GEL 100GM TUBE. TP SCH (07:34)
[2020-07-26] MEDS: LACTOBACILLUS RHAMNOSUS GG 1 CAPSULE. PO SCH (07:34)
[2020-07-26] MEDS: LIDOCAINE (700MG/PATCH) PATCH. TD SCH (07:34)
[2020-07-26] MEDS: IV NORMAL SALINE 1000ML BAG 1,000 ML IV SCH (07:41)
[2020-07-26] MEDS ORDERED: methylPREDNISolone 4 MG TABLET. PO SCH (09:00)
[2020-07-26] MEDS ORDERED: BUPIVACAINE MPF 0.25% 10 ML VIAL. IJ ONE (09:30)
[2020-07-26] MEDS ORDERED: methylPREDNISolone ACETATE 40 MG/ML VIAL. IM ONE (09:30)
[2020-07-26] MEDS ORDERED: HYDROcodone/APAP 7.5/325MG 1 TAB TABLET PO PRN (09:30)
--- NOTE | 2020-07-26 09:32 | PDOC ---
PROGRESS NOTES Date of Service DATE: 07/26/20 TIME: 09:29 Subjective Subjective She admits continued low back pain and hydrocodone is helping but does not last long enough. Objective Objective Vital Signs Date Time Temp Pulse Resp B/P (MAP) Pulse Ox O2 Delivery O2 Flow Rate FiO2 07/26/20 07:34 20 07/26/20 07:00 97.8 52 131/69 (89) 98 Room Air 97.8 Intake and Output 07/26/20 07:00 Intake Total 3450 ml Balance 3450 ml Intake Oral 1050 ml IV Total 1200 ml Other 1200 ml # Voids 1 Physical Exam Physical Exam She is lying on her right side and continues with tenderness to palpation over left sacroiliac joint and painfully limited lumbar spine ROM and she had no change with her neurological examination. Assessment Assessment Problems Medical Problems: (1) Exacerbation of chronic back pain Status: Acute Plan Plan of Care To proceed with injecting painful left sacroiliac joint and hopefully home with out patient follow up when medically stable. Comment Review of Relevant I have reviewed the following items naty (where applicable) has been applied. Labs Microbiology 07/23/20 Urine Culture - Final, Complete Medications Current Medications Morphine Sulfate (Morphine Sulfate) 4 mg 1X ONCE IV Last administered on 07/23/20at 15:31; Start 07/23/20 at 15:00; Stop 07/23/20 at 15:01; Status DC Orphenadrine Citrate (Norflex) 60 mg 1X ONCE IM Last administered on 07/23/20at 15:32; Start 07/23/20 at 15:00; Stop 07/23/20 at 15:01; Status DC Methylprednisolone Sodium Succinate (SOLU-Medrol 125MG VIAL) 125 mg 1X ONCE IV Last administered on 07/23/20at 15:31; Start 07/23/20 at 15:00; Stop 07/23/20 at 15:01; Status DC Ketorolac Tromethamine (Toradol 30mg Vial) 30 mg 1X ONCE IVP Last administered on 07/23/20at 15:32; Start 07/23/20 at 15:00; Stop 07/23/20 at 15:01; Status DC Fentanyl Citrate (Fentanyl 2ml Vial) 75 mcg 1X ONCE IVP Last administered on 07/23/20at 16:43; Start 07/23/20 at 16:30; Stop 07/23/20 at 16:31; Status DC Sodium Chloride 1,000 ml @ 1,000 mls/hr 1X ONCE IV Last administered on 07/23/20at 18:33; Start 07/23/20 at 17:15; Stop 07/23/20 at 18:14; Status DC Ketamine HCl (Ketamine) 18.4 mg 1X ONCE IV ; Start 07/23/20 at 17:15; Stop 07/23/20 at 17:16; Status DC Ketamine HCl 18.4 mg/Sodium Chloride 250.368 ml @ 1,502.208 mls/hr 1X ONCE IV Last administered on 07/23/20at 18:27; Start 07/23/20 at 18:15; Stop 07/23/20 at 18:24; Status DC Ondansetron HCl (Zofran) 4 mg PRN Q8HRS PRN IV NAUSEA/VOMITING; Start 07/23/20 at 19:45; Stop 07/24/20 at 19:44; Status DC Morphine Sulfate (Morphine Sulfate) 2 mg PRN Q2HR PRN IV PAIN Last administered on 07/24/20at 18:01; Start 07/23/20 at 19:45; Stop 07/24/20 at 19:44; Status DC Sodium Chloride 1,000 ml @ 100 mls/hr Q10H IV Last administered on 07/26/20at 07:41; Start 07/23/20 at 19:30 Ondansetron HCl (Zofran) 4 mg PRN Q4HRS PRN IV NAUSEA/VOMITING; Start 07/23/20 at 19:30 Zolpidem Tartrate (Ambien) 5 mg PRN QHS PRN PO INSOMNIA Last administered on 07/25/20at 22:03; Start 07/23/20 at 19:30 Acetaminophen (Tylenol) 650 mg PRN Q4HRS PRN PO TEMP OVER 100.4F OR MILD PAIN Last administered on 07/25/20at 09:27; Start 07/23/20 at 19:30 Al Hydroxide/Mg Hydroxide (Mylanta Plus Xs) 30 ml PRN DAILY PRN PO HEARTBURN / GAS; Start 07/23/20 at 19:30 Clonidine HCl (Catapres) 0.1 mg PRN Q6HRS PRN PO SBP>160 OR DBP>90; Start 07/23/20 at 19:30; Stop 07/25/20 at 10:03; Status DC Diphenhydramine HCl (Benadryl) 25 mg PRN Q4HRS PRN IVP ITCHING; Start 07/23/20 at 19:30 Docusate Sodium (Colace) 100 mg PRN BID PRN PO HARD STOOLS Last administered on 07/25/20at 09:26; Start 07/23/20 at 19:30 Albuterol Sulfate (Ventolin Neb Soln) 2.5 mg PRN Q4HRS PRN NEB SHORTNESS OF BREATH; Start 07/23/20 at 19:30 Guaifenesin (Robitussin) 200 mg PRN Q4HRS PRN PO COUGH; Start 07/23/20 at 19:30 Lorazepam (Ativan) 0.5 mg PRN Q4HRS PRN PO ANXIETY / AGITATION Last administered on 07/25/20at 22:03; Start 07/23/20 at 19:30 Ketorolac Tromethamine (Toradol 15mg Vial) 15 mg PRN Q8HRS PRN IVP pain Last administered on 07/26/20at 01:58; Start 07/23/20 at 19:30; Stop 07/28/20 at 19:29 Prednisone (Prednisone) 20 mg DAILY08 PO Last administered on 07/24/20at 08:12; Start 07/24/20 at 08:00; Stop 07/24/20 at 11:10; Status DC Tizanidine HCl (Zanaflex) 4 mg PRN Q8HRS PRN PO MUSCLE SPASMS Last administered on 07/26/20at 01:58; Start 07/23/20 at 19:30 Influenza Virus Vaccine Quadrival (Fluzone Quad Syringe) 0.5 ml ONCE ONCE VAX IM Last administered on 07/24/20at 08:22; Start 07/24/20 at 09:00; Stop 07/24/20 at 09:01; Status DC Diclofenac Sodium (Voltaren) 1 malu BID TP Last administered on 07/26/20at 07:34; Start 07/24/20 at 09:00 Lidocaine (Lidoderm) 1 patch DAILY TD Last administered on 07/26/20at 07:34; Start 07/24/20 at 09:00 Miscellaneous (Lidoderm Patch Removal) 1 ea QHS MC Last administered on 07/25/20at 21:00; Start 07/24/20 at 21:00 Methylprednisolone (Medrol) 8 mg BID PO Last administered on 07/24/20at 20:59; Start 07/24/20 at 09:00; Stop 07/24/20 at 21:01; Status DC Methylprednisolone (Medrol) 4 mg BIDPCLD PO Last administered on 07/24/20at 18:00; Start 07/24/20 at 12:30; Stop 07/24/20 at 17:31; Status DC Methylprednisolone (Medrol) 4 mg TIDPC PO Last administered on 07/25/20at 17:45; Start 07/25/20 at 08:30; Stop 07/25/20 at 17:31; Status DC Methylprednisolone (Medrol) 8 mg QHS PO Last administered on 07/25/20at 21:29; Start 07/25/20 at 21:00; Stop 07/25/20 at 21:01; Status DC Methylprednisolone (Medrol) 4 mg QIDAFTMEAL PO Last administered on 07/26/20at 07:34; Start 07/26/20 at 09:00; Stop 07/26/20 at 21:01 Methylprednisolone (Medrol) 4 mg TID PO ; Start 07/27/20 at 09:00; Stop 07/27/20 at 21:01 Methylprednisolone (Medrol) 4 mg BID PO ; Start 07/28/20 at 09:00; Stop 07/28/20 at 21:01 Methylprednisolone (Medrol) 4 mg DAILY PO ; Start 07/29/20 at 09:00; Stop 07/29/20 at 09:01 Levofloxacin/ Dextrose 100 ml @ 100 mls/hr Q24H IV Last administered on 07/25/20at 13:23; Start 07/24/20 at 13:00; Stop 07/25/20 at 15:00; Status DC Morphine Sulfate (Morphine Sulfate) 2 mg PRN Q2HR PRN IV PAIN Last administered on 07/25/20at 12:17; Start 07/24/20 at 20:30 Levofloxacin/ Dextrose 50 ml @ 50 mls/hr Q24H IV ; Start 07/26/20 at 13:00 Lactobacillus Rhamnosus (Culturelle) 1 cap BID PO Last administered on 07/26/20at 07:34; Start 07/25/20 at 21:00 Acetaminophen/ Hydrocodone Bitart (Lortab 7.5/325) 1 tab PRN Q6HRS PRN PO PAIN Last administered on 07/26/20at 07:34; Start 07/25/20 at 12:45 Diazepam (Valium) 5 mg Q8HRS PO Last administered on 07/26/20at 06:12; Start 07/25/20 at 14:00 Methylprednisolone Acetate (DEPO-Medrol 40MG VIAL) 40 mg 1X ONCE IM ; Start 07/26/20 at 09:30; Stop 07/26/20 at 09:31 Bupivacaine HCl (Sensorcaine-Mpf 0.25%) 10 ml 1X ONCE IJ ; Start 07/26/20 at 09:30; Stop 07/26/20 at 09:31 Active Scripts Active Medrol (Methylprednisolone) 4 Mg Tab.ds.pk 1 Pkg PO UD Valium (Diazepam) 5 Mg Tablet 5 Mg PO TID [place] 5-325 Tablet (Acetaminophen/Hydrocodone Bitart) 1 Each Tablet 1 Tab PO Q6- 8HRS PRN Ultram (Tramadol Hcl) 50 Mg Tablet 1 Tab PO PRN Q6HRS PRN MDD 4 Tablet(s) 7 Days Tramadol Hcl 50 Mg Tablet 50 Mg PO Q6HRS PRN 6 Days Lovaza ([place]-3 Acid Ethyl Esters) 1 Gm Capsule 2 Cap PO BID 30 Days Metformin Hcl 500 Mg Tablet 500 Mg PO BIDWMEALS Proventil Hfa Inhaler (Albuterol Sulfate) 6.7 Gm Hfa.aer.ad 1 Puff IH PRN Q4HRS PRN Zofran Odt (Ondansetron) 4 Mg Tab.rapdis 1 Tab SL Q8HRS NICODERM CQ 14mg (Nicotine) 1 Each Patch.td24 1 Patch TP DAILY Reported Methocarbamol 500 Mg Tablet 1 Tab PO BID Mapap Arthritis Pain (Acetaminophen) 650 Mg Tablet.er 2 Tab PO PRN Q8HRS PRN Omeprazole 40 Mg Capsule.dr 1 Cap PO DAILY Atorvastatin Calcium 20 Mg Tablet 1 Tab PO DAILY Fenofibrate (Fenofibrate Nanocrystallized) 145 Mg Tablet 1 Tab PO DAILY Fluoxetine Hcl 40 Mg Capsule 1 Cap PO DAILY Docusate Sodium 100 Mg Capsule 100 Mg PO BID Vitals/I & O Vital Sign - Last 24 Hours 07/25/20 07/25/20 07/25/20 07/25/20 10:42 11:00 11:15 12:17 Temp 97.9 97.9 Pulse 73 Resp 20 18 20 B/P (MAP) 136/72 (93) Pulse Ox 95 95 O2 Delivery Room Air Room Air 07/25/20 07/25/20 07/25/20 07/25/20 12:45 14:30 15:00 19:20 Temp 97.4 97.9 97.4 97.9 Pulse 69 60 Resp 20 18 19 18 B/P (MAP) 123/70 (87) 115/55 (75) Pulse Ox 99 94 O2 Delivery Room Air Room Air Room Air 07/25/20 07/25/20 07/25/20 07/25/20 19:45 19:48 20:48 22:30 Temp 97.6 97.6 Pulse 50 Resp 20 20 18 B/P (MAP) 112/49 (70) Pulse Ox 96 O2 Delivery Room Air Room Air Room Air Room Air 07/26/20 07/26/20 07/26/20 07/26/20 01:58 02:58 03:10 07:00 Temp 97.5 97.8 97.5 97.8 Pulse 101 52 Resp 20 20 20 20 B/P (MAP) 143/77 (99) 131/69 (89) Pulse Ox 96 98 O2 Delivery Room Air Room Air Room Air Room Air 07/26/20 07:34 Resp 20 Intake and Output 07/25/20 07/25/20 07/26/20 15:00 23:00 07:00 Intake Total 300 ml 390 ml 2760 ml Balance 300 ml 390 ml 2760 ml Justifications for Admission Other Justification NAYELI EGAN MD Jul 26, 2020 09:32
[2020-07-26] MEDS: LORazepam 0.5 MG TABLET PO PRN (10:13)
--- NOTE | 2020-07-26 10:47 | NUR ---
SW following. Discussed with RN, pt from home, room air, cardiac diet. Dr. Mcrae is going to do an injection in pt's back, medrol dose pack, pain meds at discharge. Anticipate possible discharge home today. VENTURA will continue to follow.
[2020-07-26 10:55] VITALS: BP 155/79
[2020-07-26] MEDS ORDERED: HYDR-2765 PO (11:45)
[2020-07-26] MEDS ORDERED: ACET650T26 PO (12:13)
--- NOTE | 2020-07-26 12:32 | PDOC ---
[facility] PROGRESS NOTE Date of Service DOS: DATE: 07/26/20 TIME: 12:21 Chief Complaint Chief Complaint Chronic Back pain Intractable back pain Degenerative joint disease of Lumbar spine Degenerative disk disease. Spinal canal stenosis HTN Hyperlipidemia PCOS Tobacco use. History of Present Illness History of Present Illness 07/26/2020 Pt seen and examined in room. Pt now sitting at bedside post steroid injection to Lumbar spine. Discussed with RN and CM. Discussed pt with Dr. Mcrae, who is agreeable for f/u. 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 07/24/2020 Patient seen and examined in room Patient reports pain radiates from lower back to tip of her toe Patient reports pain that is reduced temporarily with Ketamine STEPHON RN STEPHON adult protective caseworker Vitals/I&O Vitals/I&O: Vital Signs Date Time Temp Pulse Resp B/P (MAP) Pulse Ox O2 Delivery O2 Flow Rate FiO2 07/26/20 10:55 97.8 57 19 155/79 (104) 94 Room Air 97.8 l I & O 07/25/20 07/25/20 07/26/20 15:00 23:00 07:00 Intake Total 300 ml 390 ml 2760 ml Balance 300 ml 390 ml 2760 ml Physical Exam General: Alert, Oriented X3, Cooperative, Other (Patient is in pain) Heart: Regular rate, Normal S1, Normal S2 Lungs: Clear Abdomen: Normal bowel sounds, Soft Extremities: No clubbing, No cyanosis, Other (Limited range of motion of lower extremities. Tenderness noted over lumbar paraspinal muscles. ) Skin: No rashes, No breakdown Review of Systems Review of Systems: No fevers. No weakness. Assessment and Plan Assessmemt and Plan Problems Medical Problems: (1) Exacerbation of chronic back pain Status: Acute Assessment: Exacerbation chronic lower back pian Depenerative disk disease Degenerative joint disease of lumbar spine Lumbar radiculitis. HTN Hyperlipidemia Tobacco use Plan: Medrol Dosepak Diazepam/ hydrocodone Lumbar corset Work note. Rest f/u with Dr. Mcrae within the week. Comment Review of Relevant I have reviewed the following items naty (where applicable) has been applied. Medications: Current Medications Medications (Trade) Dose Ordered Sig/Marine Route PRN Reason Start Time Stop Time Status Last Admin Dose Admin Methylprednisolone (Medrol) 8 mg QHS PO 07/25/20 21:00 07/25/20 21:01 DC 07/25/20 21:29 Methylprednisolone (Medrol) 4 mg QIDAFTMEAL PO 07/26/20 09:00 07/26/20 21:01 07/26/20 07:34 Lactobacillus Rhamnosus (Culturelle) 1 cap BID PO 07/25/20 21:00 07/26/20 07:34 Acetaminophen/ Hydrocodone Bitart (Lortab 7.5/325) 1 tab PRN Q6HRS PRN PO PAIN 07/25/20 12:45 07/26/20 09:29 DC 07/26/20 07:34 Diazepam (Valium) 5 mg Q8HRS PO 07/25/20 14:00 07/26/20 06:12 Justifications for Admission Other Justification PALMA YAP III DO Jul 26, 2020 12:32
--- NOTE | 2020-07-26 13:00 | NUR ---
REVIEWED DISCHARGE INSTRUCTIONS WITH PATIENT AND BROTHER. SHE STATES THAT SHE WILL FOLLOW UP WITH DR. EGAN. NUMBER FOR HE TO MAKE AN APPT. REVIEWED NEW MEDICATION S- LORTAB, VALIUM COLACE AN THEIR PURPOSE AND CONTRA INDICATIONS. SCRIPT FOR WALKER IF SHE NEEDS ONE.REVIEWED ACTIVITIES OF DAILY LIVING AND GIVEN SCRIPT THAT SHE RETURN TO WORK AND THE DATE. NO FURTHER QUESTIONS. SALINE LOCK REMOVED DISCHARGE TO BROTHER'S/MOTHER'S HOUSE.
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
[2020-07-27] MEDS ORDERED: methylPREDNISolone 4 MG TABLET. PO SCH (09:00)
[2020-07-28] MEDS ORDERED: methylPREDNISolone 4 MG TABLET. PO SCH (09:00)
[2020-07-29] MEDS ORDERED: methylPREDNISolone 4 MG TABLET. PO SCH (09:00)
== END 2020-07-26 13:00 | disposition home or self-care (01) | DRG 552 ==
LOC: ER 13:54 → 4 NORTH 19:11
PROVIDERS: ADMIT Internal Medicine; ATTEND Internal Medicine
PROC: 3E0S33Z Introduction of Anti-inflammatory into Epidural Space, Percutaneous Approach (ICD-10-PCS; principal; 2020-07-24)
PROC: 3E0S3BZ Introduction of Anesthetic Agent into Epidural Space, Percutaneous Approach (ICD-10-PCS; 2020-07-24)
DX: M48.061 Spinal stenosis, lumbar region without neurogenic claudication (principal); N39.0 Urinary tract infection, site not specified; E27.9 Disorder of adrenal gland, unspecified; E28.2 Polycystic ovarian syndrome; E78.00 Pure hypercholesterolemia, unspecified; E78.5 Hyperlipidemia, unspecified; G89.29 Other chronic pain; I10 Essential (primary) hypertension; J45.909 Unspecified asthma, uncomplicated; M47.26 Other spondylosis with radiculopathy, lumbar region; M51.16 Intervertebral disc disorders with radiculopathy, lumbar region; M79.7 Fibromyalgia; Y93.72 Activity, wrestling; Z83.3 Family history of diabetes mellitus; Z87.891 Personal history of nicotine dependence; X58.XXXA Exposure to other specified factors, initial encounter; Z88.8 Allergy status to other drugs, medicaments and biological substances; Z91.040 Latex allergy status
CPT/HCPCS: 36415; 72125; 72128; 72131; 73502; 80053; 81001; 81025; 85025; 85610; 87086; 90471; 90686; 96365; 96372; 96375; 96376; 99285; J1030; J1885; J1956; J2270; J2360; J2930; J3010; J3490; J7030; J7050; J7509; J7512; G0378

== ENCOUNTER 2021-04-12 09:53 | Inpatient (IN) | payer MEDICAID, OTHER ==
[~2021-04-12] VITALS: Ht 177.8 cm; Wt 94.0 kg
[~2021-04-12 09:53] MED LIST changes: +ACET650T26 PO; +ATOR20TA58 PO; +FENO145T3 PO; +FLUO40CA2 PO; +METH-561 PO; +OMEP40CA7 PO
--- NOTE | 2021-04-12 10:21 | RAD ---
INDICATION: Reason: chest pain / Spl. Instructions: / History: COMPARISON: August 2019 FINDINGS: Single view of chest obtained. Enlarged cardiomediastinal silhouette. Mild interstitial opacities bilaterally with mild groundglass component most prominent at the lower lungs. IMPRESSION: * Enlarged cardiac silhouette with mild interstitial and groundglass opacity. Could be secondary to mild pulmonary vascular congestion or interstitial infiltrate. Electronically signed by: Hong Mcmahon MD (04/12/2021 10:18 AM) [id number]
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
[2021-04-12 11:05] LABS: BASO % 1 % (0-3); EOS # 0.3 x10^3/uL (0.0-0.7); EOS % 5 % (0-3); HEMATOCRIT 36.5 % (36.0-47.0); HEMOGLOBIN 12.5 g/dL (12.0-15.5); LYMPH % 35 % (24-48); MEAN CORPUSCULAR HEMOGLOBIN 31 pg (25-35); MEAN CORPUSCULAR HGB CONC 34 g/dL (31-37); MEAN CORPUSCULAR VOLUME 89 fL (79-100); MONO # 0.5 x10^3/uL (0.0-1.1); MONO % 9 % (0-9); NEUT # 2.9 x10^3/uL (1.8-7.7); NEUT % 50 % (31-73); PLATELET COUNT 127 x10^3/uL (140-400); RED CELL DISTRIBUTION WIDTH 14.6 % (11.5-14.5); WHITE BLOOD COUNT 5.8 x10^3/uL (4.0-11.0)
[2021-04-12 11:14] LABS: CALCIUM 8.7 mg/dL (8.5-10.1); CREATININE 0.6 mg/dL (0.6-1.0); GFR 111.9; POTASSIUM 4.5 mmol/L (3.5-5.1)
[2021-04-12 11:20] LABS: ALBUMIN 3.7 g/dL (3.4-5.0); DIRECT BILIRUBIN 0.1 mg/dL (0.0-0.2); TOTAL BILIRUBIN 0.3 mg/dL (0.2-1.0); TOTAL PROTEIN 6.2 g/dL (6.4-8.2)
[2021-04-12] MEDS ORDERED: NITROGLYCERIN SUBLINGUAL 0.4 MG BOTTLE OF 25. SL PRN (12:00)
[2021-04-12 12:07] LABS: PLT ESTIMATE DECREASED (ADEQUATE); POLYCHROMASIA SLIGHT
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
[2021-04-12] MEDS ORDERED: ASPIRIN CHEWABLE 81 MG TABLET. PO ONE (12:30)
[2021-04-12] MEDS ORDERED: LORazepam 0.5 MG TABLET PO ONE (14:15)
[2021-04-12 15:43] VITALS: BP 109/69
[2021-04-12] MEDS ORDERED: MAG HYDROX/ALUMINUM HYD/SIMETH 30 ML ORAL.SUSP PO PRN (16:45)
[2021-04-12] MEDS ORDERED: diphenhydrAMINE 50 MG/ML VIAL IVP PRN (16:45)
[2021-04-12] MEDS ORDERED: 0.9 % SODIUM CHLORIDE 10 ML DISP.SYRIN. IV PRN (16:45)
[2021-04-12] MEDS ORDERED: DOCUSATE SODIUM 100 MG CAPSULE. PO PRN (16:45)
[2021-04-12] MEDS ORDERED: SODIUM PHOSPHATES 19/7GM 133 ML ENEMA. PR PRN (16:45)
[2021-04-12] MEDS ORDERED: FUROSEMIDE 20 MG/2 ML VIAL. IVP ONE (16:45)
[2021-04-12] MEDS ORDERED: ONDANSETRON PF 4 MG/2 ML VIAL. IV PRN (16:45)
[2021-04-12] MEDS ORDERED: guaiFENesin ORAL 200 MG/10 ML LIQUID. PO PRN (16:45)
[2021-04-12] MEDS: IPRATRPIUM/ALBUTEROL 0.5/2.5MG 3 ML NEBU. NEB SCH ×2 (18:27→20:45)
[2021-04-12 19:03] VITALS: BP 111/57
[2021-04-12] MEDS ORDERED: ALBUTEROL SULFATE 2.5 MG/3 ML NEBU. NEB PRN (19:30)
[2021-04-12] MEDS: OMEGA-3 FATTY ACIDS/FISH OIL 1,000 MG CAPSULE. PO SCH (21:01)
[2021-04-12] MEDS: DOCUSATE SODIUM 100 MG CAPSULE. PO SCH (21:01)
[2021-04-12] MEDS: ATORVASTATIN CALCIUM 20 MG TABLET PO SCH (21:01)
[2021-04-12] MEDS: LORazepam 0.5 MG TABLET PO PRN (21:02)
[2021-04-12] MEDS: ENOXAPARIN 40 MG/0.4 ML SYRINGE. SQ SCH (21:02)
[2021-04-12] MEDS: HYDROcodone/APAP 7.5/325MG 1 TAB TABLET PO PRN (21:04)
[2021-04-12] MEDS ORDERED: ONDANSETRON ODT 4 MG TAB.RAPDIS. PO PRN (22:00)
[2021-04-12 22:18] VITALS: BP 105/67
[2021-04-13] MEDS: IPRATRPIUM/ALBUTEROL 0.5/2.5MG 3 ML NEBU. NEB SCH ×6 (00:26→20:42)
[2021-04-13 02:10] LABS: BARBITURATES NEG (NEG); BENZODIAZEPINES NEG (NEG); CANNABINOIDS NEG (NEG); COCAINE NEG (NEG); METHADONE NEG (NEG); OPIATES POS (NEG); PHENCYCLIDINE POS (NEG)
[2021-04-13 02:12] LABS: AMPHETAMINE/METHAMPHETAMINE NEG (NEG)
[2021-04-13 03:14] VITALS: BP 108/65
[2021-04-13 07:00] VITALS: BP 109/62
[2021-04-13 07:23] LABS: BASO % 1 % (0-3); EOS # 0.2 x10^3/uL (0.0-0.7); EOS % 3 % (0-3); HEMATOCRIT 37.2 % (36.0-47.0); HEMOGLOBIN 12.5 g/dL (12.0-15.5); LYMPH # 2.2 x10^3/uL (1.0-4.8); LYMPH % 33 % (24-48); MEAN CORPUSCULAR HEMOGLOBIN 30 pg (25-35); MEAN CORPUSCULAR HGB CONC 34 g/dL (31-37); MEAN CORPUSCULAR VOLUME 89 fL (79-100); MONO # 0.5 x10^3/uL (0.0-1.1); MONO % 8 % (0-9); NEUT # 3.8 x10^3/uL (1.8-7.7); NEUT % 56 % (31-73); PLATELET COUNT 130 x10^3/uL (140-400); RED BLOOD COUNT 4.17 x10^6/uL (3.50-5.40); RED CELL DISTRIBUTION WIDTH 14.8 % (11.5-14.5); WHITE BLOOD COUNT 6.7 x10^3/uL (4.0-11.0)
[2021-04-13 07:33] LABS: CALCIUM 8.4 mg/dL (8.5-10.1); CREATININE 0.8 mg/dL (0.6-1.0); GFR 80.3; POTASSIUM 3.6 mmol/L (3.5-5.1)
[2021-04-13 07:48] LABS: CHOLESTEROL/HDL RATIO 5.1
[2021-04-13] MEDS: LORazepam 0.5 MG TABLET PO PRN ×3 (10:00→22:16)
[2021-04-13] MEDS: FENOFIBRATE,MICRONIZED 134 MG CAPSULE PO SCH (10:00)
[2021-04-13] MEDS: FLUoxetine HCL 20 MG CAPSULE PO SCH (10:00)
[2021-04-13] MEDS: metFORMIN 500 MG TABLET PO SCH ×2 (10:00→18:02)
[2021-04-13] MEDS: DOCUSATE SODIUM 100 MG CAPSULE. PO SCH ×2 (10:01→20:15)
[2021-04-13] MEDS: OMEGA-3 FATTY ACIDS/FISH OIL 1,000 MG CAPSULE. PO SCH ×2 (10:01→20:15)
[2021-04-13] MEDS: PANTOPRAZOLE 40 MG TABLET.DR. PO SCH (10:01)
--- NOTE | 2021-04-13 10:26 | DISCH ---
DISCHARGE INSTRUCTIONS Condition on Discharge Condition on Discharge: Stable Activity After Discharge Activity Instructions for Disc: Activity as tolerated, Bedrest today Bathing Instructions: Shower-keep dressing dry, No Tub Bath until see Lifting Instructions after Dis: No heavy lifting, No pulling or pushing, Do not lift >10 pounds Exercise Instruction after Dis: Progress as tolerated Driving Instructions after Dis: Do not drive today Weight Bearing Status after Di: No restrictions, Full weight bearing Diet after Discharge Diet after Discharge: Regular Wound Incision Care Wound/Incision Care: Ice to area for comfort Checks after Discharge Checks after discharge: Weigh Yourself Daily Follow-Up Follow up with: PCP within 2 weeks of discharge Follow Up With: Cardiology as needed Treatment/Equipment after DC Adaptive Equipment Issued: None OLEKSANDR TO MD Apr 13, 2021 10:26
[2021-04-13 11:07] VITALS: BP 111/67
[2021-04-13] MEDS ORDERED: LORazepam 0.5 MG TABLET PO ONE (11:15)
[2021-04-13] MEDS: HYDROcodone/APAP 7.5/325MG 1 TAB TABLET PO PRN ×3 (12:41→22:16)
--- NOTE | 2021-04-13 12:58 | NUR ---
SS following for discharge planning. SS reviewed pt chart and discussed with pt RN. Pt is from home with spouse and is currently on room air. Cardiology consulted. ECHO ordered. Discharge order on the chart for home with self care.
--- NOTE | 2021-04-13 13:26 | PDOC2 ---
CARDIAC CONSULT DATE OF CONSULT Date of Consult DATE: 04/13/21 TIME: 13:22 REASON FOR CONSULT Reason for Consult: Chest pain REFERRING PHYSICIAN Referring Physician: Dr. Douglas SOURCE Source: Chart review, Patient HISTORY OF PRESENT ILLNESS HISTORY OF PRESENT ILLNESS This is a 40 yo female who presented secondary to chest pain. Patient reports pain has been intermittent for some time. Located in her central chest. Describes as stabbing [place] a little short of breath for the last several days so she decided to come to the ED for further evaluation and treatment. AMI ruled out. UDS + for PCP. No reports of dizziness, diaphoresis, or nausea/vomiting. PAST MEDICAL HISTORY Cardiovascular: Hyperlipidemia Pulmonary: Asthma GI: GERD Psych: Anxiety, Depression Rheumatologic: Fibromyalgia PAST SURGICAL HISTORY Past Surgical History: No pertinent history FAMILY HISTORY Family History: Heart Disease SOCIAL HISTORY Smoke: <1 pack per day ALCOHOL: none Drugs: Other (PCP) Lives: with Family CURRENT MEDICATIONS CURRENT MEDICATIONS Current Medications Medications (Trade) Dose Ordered Sig/Marine Route PRN Reason Start Time Stop Time Status Last Admin Dose Admin Lorazepam (Ativan) 1 mg 1X ONCE PO 04/12/21 14:15 04/12/21 14:16 DC 04/12/21 14:19 Furosemide (Lasix) 20 mg 1X ONCE IVP 04/12/21 16:45 04/12/21 16:46 DC 04/12/21 19:27 Albuterol/ Ipratropium (Duoneb) 3 ml Q4H NEB 04/12/21 16:45 04/13/21 11:45 Enoxaparin Sodium (Lovenox 40mg Syringe) 40 mg Q24H SQ 04/12/21 21:00 04/12/21 21:02 Lorazepam (Ativan) 0.5 mg PRN Q6HRS PRN PO ANXIETY / AGITATION 04/12/21 19:30 04/13/21 10:00 Atorvastatin Calcium (Lipitor) 20 mg QHS PO 04/12/21 21:00 04/12/21 21:01 Docusate Sodium (Colace) 100 mg BID PO 04/12/21 21:00 04/13/21 10:01 Acetaminophen/ Hydrocodone Bitart (Lortab 7.5/325) 1 tab PRN Q4HRS PRN PO MODERATE PAIN, SEVERE PAIN 04/12/21 19:30 04/13/21 12:41 Metformin HCl (Glucophage) 500 mg BIDWMEALS PO 04/13/21 08:00 04/13/21 10:00 Fenofibrate (Lofibra) 134 mg DAILY PO 04/13/21 09:00 04/13/21 10:00 Fluoxetine HCl (PROzac) 40 mg DAILY PO 04/13/21 09:00 04/13/21 10:00 Fish Oil (Fish Oil) 1,000 mg BID PO 04/12/21 21:00 04/13/21 10:01 Pantoprazole Sodium (Protonix) 40 mg DAILYAC PO 04/13/21 07:30 04/13/21 10:01 Lorazepam (Ativan) 0.5 mg 1X ONCE PO 04/13/21 11:15 04/13/21 11:16 DC 04/13/21 11:17 ALLERGIES ALLERGIES: Coded Allergies: adhesive (Verified Allergy, Intermediate, 12/02/19) ethinyl estradiol (Verified Allergy, Intermediate, Hives, 07/21/20) norgestimate (Verified Allergy, Intermediate, Hives, 07/21/20) pregabalin (Verified Allergy, Intermediate, MOUTH SORES, 12/02/19) latex (Verified Allergy, Mild, HIVES AND TINGLING OF MOUTH, 12/02/19) ROS Review of System 14 point ROS conducted with pertinent positives noted above in hPI PHYSICAL EXAM General: Alert, Oriented X3, Cooperative, No acute distress HEENT: Atraumatic, Mucous membr. moist/pink Lungs: Clear to auscultation Heart: Regular rate Abdomen: Soft, No tenderness Extremities: No edema, Normal pulses Skin: No significant lesion Neuro: Normal speech, Sensation intact Psych/Mental Status: Mental status NL, Mood NL MUSCULOSKELETAL: No deformity VITALS/I&O VITALS/I&O: Vital Signs Date Time Temp Pulse Resp B/P (MAP) Pulse Ox O2 Delivery O2 Flow Rate FiO2 04/13/21 13:11 95 Room Air 04/13/21 11:07 97.6 81 14 111/67 (82) 97.6 I & O 04/12/21 04/12/21 04/13/21 15:00 23:00 07:00 Intake Total 1000 ml 850 ml Output Total 1625 ml 600 ml Balance -625 ml 250 ml LABS Lab: Laboratory Tests Test 04/12/21 17:00 04/13/21 00:36 04/13/21 06:25 Troponin I Quantitative < 0.017 ng/mL (0.000-0.055) Urine Opiates Screen Pos (NEG) Urine Methadone Screen Neg (NEG) Urine Barbiturates Neg (NEG) Urine Phencyclidine Screen Pos (NEG) Urine Amphetamine/Methamphetamine Neg (NEG) Urine Benzodiazepines Screen Neg (NEG) Urine Cocaine Screen Neg (NEG) Urine Cannabinoids Screen Neg (NEG) Urine Ethyl Alcohol Neg (NEG) White Blood Count 6.7 x10^3/uL (4.0-11.0) Red Blood Count 4.17 x10^6/uL (3.50-5.40) Hemoglobin 12.5 g/dL (12.0-15.5) Hematocrit 37.2 % (36.0-47.0) Mean Corpuscular Volume 89 fL (79-100) Mean Corpuscular Hemoglobin 30 pg (25-35) Mean Corpuscular Hemoglobin Concent 34 g/dL (31-37) Red Cell Distribution Width 14.8 % (11.5-14.5) H Platelet Count 130 x10^3/uL (140-400) L Neutrophils (%) (Auto) 56 % (31-73) Lymphocytes (%) (Auto) 33 % (24-48) Monocytes (%) (Auto) 8 % (0-9) Eosinophils (%) (Auto) 3 % (0-3) Basophils (%) (Auto) 1 % (0-3) Neutrophils # (Auto) 3.8 x10^3/uL (1.8-7.7) Lymphocytes # (Auto) 2.2 x10^3/uL (1.0-4.8) Monocytes # (Auto) 0.5 x10^3/uL (0.0-1.1) Eosinophils # (Auto) 0.2 x10^3/uL (0.0-0.7) Basophils # (Auto) 0.0 x10^3/uL (0.0-0.2) Sodium Level 144 mmol/L (136-145) Potassium Level 3.6 mmol/L (3.5-5.1) Chloride Level 107 mmol/L (98-107) Carbon Dioxide Level 27 mmol/L (21-32) Anion Gap 10 (6-14) Blood Urea Nitrogen 9 mg/dL (7-20) Creatinine 0.8 mg/dL (0.6-1.0) Estimated GFR (Cockcroft-Gault) 80.3 Glucose Level 107 mg/dL (70-99) H Calcium Level 8.4 mg/dL (8.5-10.1) L Triglycerides Level 330 mg/dL (0-150) H Cholesterol Level 147 mg/dL (0-200) LDL Cholesterol, Calculated 52 mg/dL (0-100) VLDL Cholesterol, Calculated 66 mg/dL (0-40) H Non-HDL Cholesterol Calculated 118 mg/dL (0-129) HDL Cholesterol 29 mg/dL (40-60) L Cholesterol/HDL Ratio 5.1 Laboratory Tests 04/13/21 06:25 Laboratory Tests 04/13/21 06:25 ASSESSMENT/PLAN ASSESSMENT/PLAN 1. Chest pain, atypical. AMI ruled out 2. Mild acute probable diastolic CHF; CXR with evidence of CHF. S/p IV Lasix 3. Hyperlipidemia; statin 4. Tobaccoism 5. Drug abuse; UDS + PCP Recommendations Echo to assess LV systolic function Discussed/encourage cessation from tobacco and recreational drug use. Patient reports she is ready to quit. Could consider further ischemic evaluation Supportive care DARRELL WARREN APRN Apr 13, 2021 13:26
[2021-04-13 15:14] VITALS: BP 117/67
[2021-04-13] MEDS: ACETAMINOPHEN 325 MG TABLET. PO PRN ×2 (16:09→20:15)
--- NOTE | 2021-04-13 17:34 | CARD ---
MR#: [id number] Date of Study: 04/13/2021 Ordering Physician: LUIS MANUEL COTTRELL, Referring Physician: LUIS MANUEL COTTRELL, Tech: Trinidad De [facility] APPROVED REPORT EXAM: Two-dimensional and M-mode echocardiogram with Doppler and color Doppler. Other Information Quality : Technically LimitedHR: 72bpm Rhythm : NSRTechnically limited study due to body habitus. INDICATION Congestive Heart Failure RISK FACTORS Hypertension Obesity 2D DIMENSIONS RVDd3.3 (2.9-3.5cm)Left Atrium(2D)3.9 (1.6-4.0cm) IVSd0.9 (0.7-1.1cm)Aortic Root(2D)3.3 (2.0-3.7cm) LVDd4.3 (3.9-5.9cm)LVOT Diameter2.3 (1.8-2.4cm) PWd1.0 (0.7-1.1cm)LVDs2.9 (2.5-4.0cm) FS (%) 34.2 %SV53.6 ml Aortic Valve AoV Peak Stephon.151.0cm/sAoV VTI26.7cm AO Peak GR.9.1mmHgLVOT Peak Stephon.118.8cm/s AO Mean GR.4mmHgAVA (VMAX)3.13cm2 Mitral Valve MV E Ibpzoydt18.5cm/sMV DECEL [id number] MV A Sfvhebph30.7cm/sE/A Ratio1.2 Pulmonary Valve PV Peak Fjlbqmhe953.1cm/s LEFT VENTRICLE The left ventricle is normal size. There is normal left ventricular wall thickness. The left ventricu lar systolic function is normal. The ejection fraction is 55 to 60%. There is normal LV segmental wal l motion. The left ventricular diastolic function and filling is normal for age. RIGHT VENTRICLE The right ventricle is normal size. There is normal right ventricular wall thickness. The right ventr icular systolic function is normal. ATRIA The left atrium size is normal. The right atrium size is normal. The interatrial septum is intact wit h no evidence for an atrial septal defect or patent foramen ovale as noted on 2-D or Doppler imaging. AORTIC VALVE The aortic valve is normal in structure and function. Doppler and Color Flow revealed no significant aortic regurgitation. There is no significant aortic valvular stenosis. There is no aortic valvular v egetation. MITRAL VALVE The mitral valve is normal in structure and function. There is no evidence of mitral valve prolapse. There is no mitral valve stenosis. Doppler and Color Flow revealed no mitral valve regurgitation note d. TRICUSPID VALVE The tricuspid valve is normal in structure and function. Doppler and Color Flow revealed no tricuspid valve regurgitation noted. There is no tricuspid valve stenosis. PULMONIC VALVE The pulmonary valve is normal in structure and function. Doppler and Color Flow revealed trace pulmon ic valvular regurgitation. GREAT VESSELS The aortic root is normal in size. The ascending aorta is normal in size. The IVC is normal in size a nd collapses >50% with inspiration. PERICARDIAL EFFUSION There is no evidence of significant pericardial effusion. Critical Notification Critical Value: No <Conclusion> The left ventricle is normal size. The left ventricular systolic function is normal. The ejection fraction is 55 to 60%. Doppler and Color Flow revealed no significant aortic regurgitation. There is no significant aortic valvular stenosis. Doppler and Color Flow revealed no mitral valve regurgitation noted. Doppler and Color Flow revealed no tricuspid valve regurgitation noted. Signed by : Alen Borden MD Electronically Approved : 04/13/2021 17:33:29
[2021-04-13] MEDS ORDERED: FLUCONAZOLE 100 MG TABLET. PO ONE (18:00)
[2021-04-13 19:15] VITALS: BP 120/73
[2021-04-13] MEDS: ENOXAPARIN 40 MG/0.4 ML SYRINGE. SQ SCH (20:14)
[2021-04-13] MEDS: ATORVASTATIN CALCIUM 20 MG TABLET PO SCH (20:15)
[2021-04-13 22:17] VITALS: BP 107/60
[2021-04-14] MEDS: IPRATRPIUM/ALBUTEROL 0.5/2.5MG 3 ML NEBU. NEB SCH ×4 (00:45→11:40)
[2021-04-14 04:15] VITALS: BP 116/70
[2021-04-14] MEDS: ACETAMINOPHEN 325 MG TABLET. PO PRN (04:20)
[2021-04-14 07:00] VITALS: BP 111/69
[2021-04-14] MEDS: LORazepam 0.5 MG TABLET PO PRN ×2 (07:24→13:43)
[2021-04-14] MEDS: HYDROcodone/APAP 7.5/325MG 1 TAB TABLET PO PRN ×2 (07:24→12:50)
--- NOTE | 2021-04-14 08:41 | RAD ---
Carotid Doppler dated 04/13/2021. Comparison none. Clinical Indication: Unusual headaches. Smoking history.. Findings: Grayscale, color flow and spectral waveform analysis was performed. No significant plaque or intimal thickening. No focal stenosis. The waveforms are within normal limits. Flow within the bilateral vert ebral arteries is antegrade. Velocity measurements are as follows (centimeters per second ) Peak systolic velocity right left ICA 138 117 EDV 18 27 CCA 123 106 ICA/CCA ratio 1.3 1.1 Impression: No evidence of hemodynamically significant carotid stenosis. Stenosis calculations for carotid ultrasound studies are derived from validated velocity criteria wh ich are known to correlate with the NASCET methodology. Electronically signed by: Terrell Villavicencio MD (04/14/2021 8:38 AM) [id number]
[2021-04-14] MEDS: metFORMIN 500 MG TABLET PO SCH (09:11)
[2021-04-14] MEDS: FLUoxetine HCL 20 MG CAPSULE PO SCH (09:11)
[2021-04-14] MEDS: DOCUSATE SODIUM 100 MG CAPSULE. PO SCH (09:11)
[2021-04-14] MEDS: PANTOPRAZOLE 40 MG TABLET.DR. PO SCH (09:11)
[2021-04-14] MEDS: FENOFIBRATE,MICRONIZED 134 MG CAPSULE PO SCH (09:11)
[2021-04-14] MEDS: OMEGA-3 FATTY ACIDS/FISH OIL 1,000 MG CAPSULE. PO SCH (09:11)
--- NOTE | 2021-04-14 10:33 | PDOC ---
PROGRESS NOTES Date of Service: DATE: 04/14/21 TIME: 10:33 Subjective Subjective Presently chest pain-free. She did state that whenever she gets anxious she has a atypical chest pain Objective Objective Vital Signs Date Time Temp Pulse Resp B/P (MAP) Pulse Ox O2 Delivery O2 Flow Rate FiO2 04/14/21 08:00 Room Air 04/14/21 07:54 97 04/14/21 07:00 97.3 94 21 111/69 (83) 97.3 Intake and Output 04/14/21 07:00 Intake Total 720 ml Output Total 1700 ml Balance -980 ml Intake Oral 720 ml Output Urine Total 1700 ml Physical Exam Abdomen: Soft, No tenderness Heart: Regular rate Extremities: No edema, Normal pulses General: Alert, Oriented X3, Cooperative, No acute distress HEENT: Atraumatic, Mucous membr. moist/pink Lungs: Clear to auscultation MUSCULOSKELETAL: No deformity Neuro: Normal speech, Sensation intact Psych/Mental Status: Mental status NL, Mood NL Skin: No significant lesion Assessment Assessment 1. Chest pain, atypical. AMI ruled out. 2D echo showed normal LV systolic function without any wall motion abnormalities. Plan ischemic evaluation as an outpatient. 2. Mild acute diastolic CHF; CXR with evidence of CHF. Better compensated after diuresis with Lasix 3. Hyperlipidemia; statin 4. Tobaccoism 5. Drug abuse; UDS + PCP Plan Plan of Care Problems Medical Problems: (1) Chest pain Status: Acute Comment Review of Relevant I have reviewed the following items naty (where applicable) has been applied. Medications Current Medications Fluconazole (Diflucan) 150 mg 1X ONCE PO Last administered on 04/13/21at 20:15; Start 04/13/21 at 18:00; Stop 04/13/21 at 18:01; Status DC Lorazepam (Ativan) 0.5 mg 1X ONCE PO Last administered on 04/13/21at 11:17; Start 04/13/21 at 11:15; Stop 04/13/21 at 11:16; Status DC Vitals/I & O Vital Sign - Last 24 Hours 04/13/21 04/13/21 04/13/21 04/13/21 11:07 11:46 12:41 13:11 Temp 97.6 97.6 Pulse 81 Resp 14 B/P (MAP) 111/67 (82) Pulse Ox 99 95 95 95 O2 Delivery Room Air Room Air Room Air Room Air 04/13/21 04/13/21 04/13/21 04/13/21 15:14 15:33 18:03 19:00 Temp 98.0 98.0 Pulse 81 Resp 14 20 B/P (MAP) 117/67 (84) Pulse Ox 96 96 96 O2 Delivery Room Air Room Air Room Air Room Air 04/13/21 04/13/21 04/13/21 04/13/21 19:15 20:00 20:44 22:16 Temp 98.8 98.8 Pulse 77 Resp 17 20 B/P (MAP) 120/73 (89) Pulse Ox 96 96 98 O2 Delivery Room Air Room Air Room Air Room Air 04/13/21 04/13/21 04/14/21 04/14/21 22:17 22:46 03:00 04:15 Temp 98.8 98.2 98.8 98.2 Pulse 90 75 Resp 20 20 21 B/P (MAP) 107/60 (76) 116/70 (85) Pulse Ox 98 97 O2 Delivery Room Air Room Air Room Air Room Air 04/14/21 04/14/21 04/14/21 04/14/21 07:00 07:22 07:24 07:54 Temp 97.3 97.3 Pulse 94 Resp 21 B/P (MAP) 111/69 (83) Pulse Ox 98 96 97 97 O2 Delivery Room Air Room Air Room Air Room Air 04/14/21 08:00 O2 Delivery Room Air Intake and Output 04/13/21 04/13/21 04/14/21 15:00 23:00 07:00 Intake Total 360 ml 360 ml Output Total 1100 ml 600 ml Balance -740 ml -240 ml LOREN MULTANI MD Apr 14, 2021 10:33
[2021-04-14 11:00] VITALS: BP 104/52
--- NOTE | 2021-04-14 15:22 | NUR ---
Discharge Note: RUSS WESTFALL Discharge instructions and discharge home medications reviewed with Patient and a copy given. All questions have been answered and understanding verbalized. The following instructions and handouts were given: chest pain, anxiety/panic attacks, substance abuse, lorazepam tablets, and cardiac diet IV discontinued, no complications Patient discharged to home with self care
--- NOTE | 2021-04-17 16:00 | PDOC3 ---
[facility]-Discharge Summary Date of Admission: Date of Admission: Apr 12, 2021 Date of Discharge: Date of Discharge: Apr 14, 2021 Discharge Diagnosis: Discharge Diagnosis: 1. Chest pain, atypical. AMI ruled out 2. Mild acute probable diastolic CHF; CXR with evidence of CHF. S/p IV Lasix 3. Hyperlipidemia; statin 4. Tobaccoism 5. Drug abuse; UDS + PCP Consults: Consults: Cardiology Recommendations Echo to assess LV systolic function Discussed/encourage cessation from tobacco and recreational drug use. Patient reports she is ready to quit. Could consider further ischemic evaluation Supportive care Hospital Course: Hospital Course: 40-year-old female/ [employer], who presented with chest pain radiates to the back started about 12 to 24 hours ago. // had some shortness of breath but denies nausea vomiting or diaphoresis.//lightheaded intermittently She reports being under a lot of stress recently. She has a history of high cholesterol but denies a history of hypertension or diabetes. pos review / family history of heart disease. She does smoke. // TROPONIN I NEG X 1 REMOTE PCP ABUSE By day of discharge pt was chest pain free and ready for discharge. She was seen by PAT team and had a safety plan Disposition: Disposition/Orders: D/C to Home Activity: Activity: Resume previous activity Diet: Diet: Cardiac Medications: Home Meds Active Scripts [place]-3 Acid Ethyl Esters (LOVAZA) 1 Gm Capsule, 2 CAP PO BID for Hypertriglyceridemia for 30 Days, #120 CAP 5 Refills Prov:GERTRUDIS GALICIA MD 12/04/19 Metformin Hcl (METFORMIN HCL) 500 Mg Tablet, 500 MG PO BIDWMEALS for ANTI- DIABETIC, #60 TAB 0 Refills Prov:KAYE FORRESTER MD 09/15/19 Albuterol Sulfate (PROVENTIL HFA INHALER) 6.7 Gm Hfa.aer.ad, 1 PUFF IH PRN Q4HRS PRN for FOR ASTHMA, #1 INHALER 0 Refills Prov:RICHARD DELAROSA APRN 06/16/19 Ondansetron (ZOFRAN ODT) 4 Mg Tab.rapdis, 1 TAB SL Q8HRS, #15 TAB Prov:RICHARD DELAROSA [employer] 08/15/18 Reported Medications Hydrocodone Bit/Acetaminophen (HYDROCODONE-APAP 7.5-325 ) 1 Tab Tablet, 1 TAB PO PRN Q4-6HRS PRN for PAIN, TAB 0 Refills 07/26/20 Omeprazole (OMEPRAZOLE) 40 Mg Capsule.dr, 1 CAP PO DAILY for Gerd 07/23/20 Atorvastatin Calcium (ATORVASTATIN CALCIUM) 20 Mg Tablet, 1 TAB PO DAILY for Cholesterol 07/23/20 Fenofibrate Nanocrystallized (FENOFIBRATE) 145 Mg Tablet, 1 TAB PO DAILY for Hypertriglyverides 07/23/20 Fluoxetine Hcl (FLUOXETINE HCL) 40 Mg Capsule, 1 CAP PO DAILY for Anxiety/Depression 07/23/20 Docusate Sodium (DOCUSATE SODIUM) 100 Mg Capsule, 100 MG PO BID 10/26/17 Scheduled Atorvastatin Calcium (Atorvastatin Calcium), 1 TAB PO DAILY, (Reported) Docusate Sodium (Docusate Sodium), 100 MG PO BID, (Reported) Fenofibrate Nanocrystallized (Fenofibrate), 1 TAB PO DAILY, (Reported) Fluoxetine Hcl (Fluoxetine Hcl), 1 CAP PO DAILY, (Reported) Metformin Hcl (Metformin Hcl), 500 MG PO BIDWMEALS [place]-3 Acid Ethyl Esters (Lovaza), 2 CAP PO BID Omeprazole (Omeprazole), 1 CAP PO DAILY, (Reported) Ondansetron (Zofran Odt), 1 TAB SL Q8HRS Scheduled PRN Albuterol Sulfate (Proventil Hfa Inhaler), 1 PUFF IH PRN Q4HRS PRN for FOR ASTHMA Hydrocodone Bit/Acetaminophen (Hydrocodone-Apap 7.5-325 ), 1 TAB PO PRN Q4-6H RS PRN for PAIN, (Reported) Total Time: Total Time: Total time spent was 35 minutes in preparing scripts, discharge planning with SW and RN, and preparing this discharge summary. Patient seen and examined on day of discharge. Justicifation of Admission Dx: Justifications for Admission: Justification of Admission Dx: Yes OLEKSANDR TO MD Apr 17, 2021 16:00
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
== END 2021-04-14 14:15 | disposition home or self-care (01) | DRG 291 ==
LOC: ER 09:53 → 2 NORTH 11:57 → ER 13:04
PROVIDERS: ADMIT Family Medicine; ATTEND Family Medicine
DX: I11.0 Hypertensive heart disease with heart failure (principal); I50.31 Acute diastolic (congestive) heart failure; R07.89 Other chest pain; E66.01 Morbid (severe) obesity due to excess calories; E78.00 Pure hypercholesterolemia, unspecified; E78.5 Hyperlipidemia, unspecified; F17.210 Nicotine dependence, cigarettes, uncomplicated; I25.10 Atherosclerotic heart disease of native coronary artery without angina pectoris; J45.909 Unspecified asthma, uncomplicated; M79.7 Fibromyalgia; Z82.49 Family history of ischemic heart disease and other diseases of the circulatory system; Z83.3 Family history of diabetes mellitus; F32.9 Major depressive disorder, single episode, unspecified; F41.9 Anxiety disorder, unspecified; G89.29 Other chronic pain; K21.9 Gastro-esophageal reflux disease without esophagitis; Z88.8 Allergy status to other drugs, medicaments and biological substances; Z71.51 Drug abuse counseling and surveillance of drug abuser; Z71.6 Tobacco abuse counseling; F16.10 Hallucinogen abuse, uncomplicated
CPT/HCPCS: 36415; 71045; 80048; 80061; 80076; 80307; 83690; 84484; 85025; 85379; 93005; 93306; 93880; 94640; J1650; J1940; 99285-25; G0378

== ENCOUNTER 2021-10-28 18:48 | Emergency (ER) | payer MEDICAID ==
[~2021-10-28] VITALS: Ht 160 cm; Wt 195.0 kg
[~2021-10-28 18:48] MED LIST changes: +CYCL10TA19 PO; -CYCL10TA2 PO; +DICY20TA PO; -DICY20TA3 PO
[2021-10-28 20:43] LABS: BILIRUBIN,URINE NEGATIVE (NEG); CLARITY,URINE TURBID; COLOR,URINE YELLOW; NITRITE,URINE NEGATIVE (NEG); PH,URINE 7.5 (<5.0-8.0); PROTEIN,URINE 30 mg/dL (NEG-TRACE)
[2021-10-28 20:50] LABS: BACTERIA,URINE MANY /HPF (0-FEW); RBC,URINE 0 /HPF (0-2)
[2021-10-28 20:54] LABS: U PREG PATIENT NEGATIVE (NEG)
[2021-10-28] MEDS ORDERED: IV NORMAL SALINE 1000ML BAG 1,000 ML IV ONE (21:00)
[2021-10-28] MEDS ORDERED: FAMOTIDINE 20 MG/2 ML VIAL IVP ONE (21:00)
[2021-10-28] MEDS ORDERED: KETOROLAC 30 MG/ML VIAL. IVP ONE (21:00)
[2021-10-28] MEDS ORDERED: DEXAMETHASONE SOD PHOS 4 MG/ML VIAL IVP ONE (21:00)
[2021-10-28] MEDS ORDERED: ONDANSETRON PF 4 MG/2 ML VIAL. IVP ONE (21:00)
[2021-10-28] MEDS ORDERED: CONTRAST GIVEN. MC PRN (21:15)
[2021-10-28 21:23] LABS: BASO # 0.1 x10^3/uL (0.0-0.2); BASO % 1 % (0-3); EOS # 0.3 x10^3/uL (0.0-0.7); EOS % 3 % (0-3); HEMOGLOBIN 12.1 g/dL (12.0-15.5); LYMPH % 32 % (24-48); MEAN CORPUSCULAR HEMOGLOBIN 29 pg (25-35); MEAN CORPUSCULAR HGB CONC 34 g/dL (31-37); MEAN CORPUSCULAR VOLUME 87 fL (79-100); MONO % 10 % (0-9); NEUT # 5.1 x10^3/uL (1.8-7.7); NEUT % 54 % (31-73); PLATELET COUNT 183 x10^3/uL (140-400); RED BLOOD COUNT 4.16 x10^6/uL (3.50-5.40); RED CELL DISTRIBUTION WIDTH 14.9 % (11.5-14.5); WHITE BLOOD COUNT 9.4 x10^3/uL (4.0-11.0)
[2021-10-28] MEDS ORDERED: IOHEXOL 300 MG/ML 100ML VIAL. IV ONE (21:30)
[2021-10-28 21:33] LABS: CALCIUM 9.4 mg/dL (8.5-10.1); CREATININE 0.7 mg/dL (0.6-1.0); GFR 93.2; POTASSIUM 3.5 mmol/L (3.5-5.1)
[2021-10-28 21:39] LABS: ALBUMIN 3.5 g/dL (3.4-5.0); ALBUMIN/GLOBULIN RATIO 0.9 (1.0-1.7); TOTAL BILIRUBIN 0.1 mg/dL (0.2-1.0); TOTAL PROTEIN 7.6 g/dL (6.4-8.2)
--- NOTE | 2021-10-28 21:45 | RAD ---
EXAM: CT Chest, Abdomen and Pelvis with IV contrast CLINICAL HISTORY: Reason: cough and RUQ pain, N/V, OMNI 300 75 ML IV / Spl. Instructions: / History: Cough and right upper quadrant pain COMPARISON: CT abdomen pelvis from 05/09/2020 TECHNIQUE: Helical CT of the chest, abdomen and pelvis was performed following the administration of intravenous contrast. Axial, coronal and sagittal reformatted images were generated. ---PQRS compliance statement - One or more of the following individualized dose reduction techniques were utilized for this study: 1. Automated exposure control 2. Adjustment of the mA and/or kV according to patient size 3. Use of iterative reconstruction technique--- FINDINGS: CHEST: LUNGS/PLEURA: The pulmonary parenchyma appears within normal limits. Partially calcified granuloma in the left lower lobe. No suspicious pulmonary nodules are visualized. No pleural effusion or focal pl eural lesion. MEDIASTINUM: No pathologic mediastinal or hilar adenopathy. The thoracic aorta and pulmonary arteries are normal in caliber. The heart is normal in size. No pericardial effusion. No detectable calcified coronary atherosclerosis. The visualized thyroid and the esophagus are unremarkable. AXILLA/SOFT TISSUE: No supraclavicular or axillary adenopathy. Regional soft tissues are within sara l limits. Abdomen and Pelvis: Liver and biliary system: Diffuse hepatic steatosis. No focal liver lesion. Gallbladder is normal. N o biliary ductal dilatation. Spleen: Unremarkable Pancreas: Unremarkable Adrenal glands: Unremarkable Kidneys: Symmetric nephrograms. There is a 1.7 cm hypoattenuating cyst in the superior pole the right kidney with attenuation measuring that of simple fluid. Nonobstructing nephrolithiasis. No evidence of hydroureteronephrosis. Lymph nodes/retroperitoneum: No pathologically enlarged adenopathy. No retroperitoneal masses. Vessels: Minimal aortobiiliac atherosclerotic disease. Vessels are normal in course and caliber. Bowel/Peritoneal cavity: Stomach is unremarkable. Small and large bowel are mostly decompressed with no evidence of obstruction or focal inflammation. Scattered colonic diverticulosis without evidence o f diverticulitis. Appendix is normal. No free intra-abdominal air or free fluid. Abdominal wall: Unremarkable Bladder: Decompressed Reproductive: Anteverted normal appearing uterus. No suspicious adnexal masses. Bones: No suspicious osseous lesions or acute fracture. IMPRESSION: 1. No acute abnormality in the chest, abdomen, or pelvis. 2. Chronic/incidental findings, as above. Electronically signed by: Deniz Morel DO (10/28/2021 9:42 PM) [facility]
[2021-10-28 21:53] LABS: INFLUENZA A PATIENT NEGATIVE (NEGATIVE); INFLUENZA B PATIENT NEGATIVE (NEGATIVE)
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
[2021-10-28 22:15] VITALS: BP 110/65
[2021-10-28] MEDS ORDERED: ONDA4TAB12 PO (22:29)
--- NOTE | 2021-10-30 15:34 | NUR ---
IP: Informed pt of positive covid test and the need to quarantine for 10 days. Pt verbalized understanding.
== END 2021-10-28 22:49 | disposition home or self-care (01) ==
LOC: ER 18:48
DX: U07.1 COVID-19 (principal); B34.9 Viral infection, unspecified; R10.84 Generalized abdominal pain; J45.909 Unspecified asthma, uncomplicated; E78.00 Pure hypercholesterolemia, unspecified; G89.29 Other chronic pain; F17.200 Nicotine dependence, unspecified, uncomplicated; Z91.040 Latex allergy status; Z88.8 Allergy status to other drugs, medicaments and biological substances
CPT/HCPCS: 36415; 71260; 74177; 80053; 81001; 81025; 83690; 85025; 87086; 87804; 96361; 96374; 96375; 99285; J1100; J1885; J2405; J3490; J7030; Q9967; U0003